=== PATIENT | male | born 1935 | race Caucasian/White ===

== ENCOUNTER 2018-05-30 18:48 | Inpatient (IN) | payer MEDICARE ==
[2018-05-30 19:12] LABS: ABSOLUTE EOSINOPHILS # (AUTO) 0.2 10^3/uL (0.0-0.6); ABSOLUTE LYMPHOCYTES (AUTO) 0.9 10^3/uL (0.5-4.7); ABSOLUTE MONOCYTES (AUTO) 0.7 10^3/uL (0.1-1.4); ABSOLUTE NEUT (AUTO) 6.3 10^3/uL (1.7-8.2); BASOPHILS % (AUTO) 0.2 % (0-2); EOSINOPHILS % (AUTO) 2.3 % (0-6); HEMATOCRIT 47.8 % (37.9-51.0); HEMOGLOBIN 15.9 g/dL (13.5-17.0); LYMPHOCYTES % (AUTO) 11.7 % (13-45); MEAN CORPUSCULAR HEMOGLOBIN 31.6 pg (27.0-33.4); MEAN CORPUSCULAR HGB CONC 33.2 g/dL (32.0-36.0); MEAN CORPUSCULAR VOLUME 95 fl (80-97); MONOCYTES % (AUTO) 8.2 % (3-13); PLATELET COUNT 182 10^3/uL (150-450); RED BLOOD COUNT 5.02 10^6/uL (4.35-5.55); RED CELL DISTRIBUTION WIDTH 15.1 % (11.5-14.0); SEGMENTED NEUTROPHILS % (AUTO) 77.6 % (42-78); TOTAL CELLS COUNTED % (AUTO) 100 %; WHITE BLOOD COUNT 8.1 10^3/uL (4.0-10.5)
--- NOTE | 2018-05-30 19:31 | RADIOLOGY REPORT (SQ) ---
EXAM DESCRIPTION: CHEST SINGLE VIEW COMPLETED DATE/TIME: 05/30/2018 7:14 pm REASON FOR STUDY: bed 6 db COMPARISON: None. EXAM PARAMETERS: NUMBER OF VIEWS: One view. TECHNIQUE: Single frontal radiographic view of the chest acquired. RADIATION DOSE: NA LIMITATIONS: None. FINDINGS: LUNGS AND PLEURA: Chronic interstitial changes. Cannot exclude mild pulmonary edema. The re is ill-defined opacification in the left base. MEDIASTINUM AND HILAR STRUCTURES: No masses. Contour normal. HEART AND VASCULAR STRUCTURES: Heart normal in size. Normal vasculature. BONES: No acute findings. HARDWARE: None in the chest. OTHER: No other significant finding. IMPRESSION: Cannot exclude limited left lower lobe pneumonia. Cannot exclude mild pulmonary edema s uperimposed upon chronic interstitial changes. TECHNICAL DOCUMENTATION: JOB ID: [id number] [employer]- All Rights Reserved Reading location - IP/workstation name: [email or web address]
[2018-05-30 19:33] LABS: ALANINE AMINOTRANSFERASE 20 U/L (21-72); ALBUMIN 3.9 g/dL (3.5-5.0); ALKALINE PHOSPHATASE 88 U/L (38-126); ANION GAP 16 (5-19); ASPARTATE AMINO TRANSFERASE 29 U/L (17-59); BILIRUBIN,DIRECT 0.4 mg/dL (0.0-0.4); BILIRUBIN,TOTAL 0.6 mg/dL (0.2-1.3); BLOOD UREA NITROGEN 39 mg/dL (7-20); CALCIUM 9.1 mg/dL (8.4-10.2); CARBON DIOXIDE 32 mmol/L (22-30); CHLORIDE 98 mmol/L (98-107); CREATINE KINASE 26 U/L (55-170); GLUCOSE 102 mg/dL (75-110); POTASSIUM 3.9 mmol/L (3.6-5.0); SODIUM 145.6 mmol/L (137-145); TOTAL PROTEIN 7.8 g/dL (6.3-8.2)
[2018-05-30] MEDS ORDERED: NORMAL SALINE 250 ML IV ONE (19:38)
--- NOTE | 2018-05-30 19:39 | EKG REPORT ---
SEVERITY:- ABNORMAL ECG - ATRIAL FLUTTER RIGHT AXIS DEVIATION BORDERLINE INFERIOR Q WAVES : Confirmed by: Benjamin Montano MD 30-May-2018 19:38:30
[2018-05-30] MEDS ORDERED: NICOTINE 14 MG/24 HR PATCH.TD24 TD ONE (19:43)
--- NOTE | 2018-05-30 19:45 | ER Document Report ---
ED General - General Chief Complaint: Arrhythmia Stated Complaint: POSSIBLE HEARTRATE ISSUE Time Seen by Provider: 05/30/18 19:17 Mode of Arrival: Ambulatory Information source: Patient Notes: This is an 82-year-old man with a history of hypertension, COPD, anxiety who presents to the emergency room with several days worth of shortness of breath and dyspnea on exertion. Patient denies chest pain. Patient's symptoms have progressed over the last 2 weeks and he came in tonight at the insistence of his family. His oxygen saturation on room air was in the 80s in triage. On oxygen (2 L nasal cannula) his oxygen saturation goes up to 94%. He denies chest pain at this time. - HPI Onset: Last week Onset/Duration: Gradual Quality of pain: No pain Associated symptoms: Chills, Nonproductive cough, Shortness of breath. denies: Fever Exacerbated by: Denies Relieved by: Denies Similar symptoms previously: Yes Recently seen / treated by doctor: No - Related Data Allergies/Adverse Reactions: No Known Allergies Allergy (Unverified 01/03/13 10:33) Past Medical History - General Information source: Patient - Social History Smoking Status: Current Every Day Smoker Cigarette use (# per day): Yes - Pack a day Chew tobacco use (# tins/day): No Frequency of alcohol use: None Drug Abuse: None Lives with: Family Family History: None Patient has suicidal ideation: No Patient has homicidal ideation: No - Past Medical History Cardiac Medical History: Reports: Hx Hypertension - MEDICATED Denies: Hx Heart Attack Pulmonary Medical History: Denies: Hx Asthma Neurological Medical History: Denies: Hx Cerebrovascular Accident, Hx Seizures Renal/ Medical History: Denies: Hx Peritoneal Dialysis GI Medical History: Denies: Hx Hepatitis, Hx Hiatal Hernia, Hx Ulcer Infectious Medical History: Denies: Hx Hepatitis Surgical Hx: Negative Past Surgical History: Denies: Hx Open Heart Surgery, Hx Pacemaker Review of Systems - Review of Systems Constitutional: denies: Chills, Fever EENT: No symptoms reported Cardiovascular: No symptoms reported Respiratory: No symptoms reported Gastrointestinal: See HPI Genitourinary: No symptoms reported Male Genitourinary: No symptoms reported Musculoskeletal: No symptoms reported Skin: No symptoms reported Hematologic/Lymphatic: No symptoms reported Neurological/Psychological: No symptoms reported Physical Exam - Vital signs Vitals: Resp 21 H 05/30/18 18:58 Notes: Physical exam: GENERAL: She is alert and oriented x3, no acute distress lying in the stretcher. His oxygen saturation is 94% on 2 L nasal cannula. HEAD: Atraumatic, normocephalic. EYES: Pupils equal round and reactive to light, extraocular movements intact, sclera anicteric, conjunctiva are normal. ENT: TMs normal, nares patent, oropharynx clear without exudates. Moist mucous membranes. NECK: Normal range of motion, supple without obvious mass or JVD. LUNGS: Diffuse rhonchi bilaterally without karlene wheezing. HEART: Regular rate and rhythm without murmurs, rubs or gallops. ABDOMEN: Soft, normoactive bowel sounds. No tenderness to palpation. No guarding, no rebound. No masses appreciated. EXTREMITIES: Normal range of motion, no pitting or edema. No clubbing or cyanosis. NEUROLOGICAL: Cranial nerves II through XII grossly intact. Normal speech, moving all extremities. PSYCH: Normal mood, normal affect. SKIN: Warm, Dry, normal turgor, no rashes or lesions noted. Course - Re-evaluation Re-evalutation: 05/30/18 22:20 Note: Patient has new onset A. fib/flutter. His ventricular rate is controlled at this time. He was initiated with Lovenox. CTA shows no pulmonary emboli. He is having desaturations into the 85% range on room air. His oxygen saturation on room air is 93%. I do think he has an acute COPD exacerbation and we are giving Xopenex as well as Solu-Medrol and ceftriaxone. - Vital Signs Vital signs: Temp Pulse Resp BP Pulse Ox 98 19 107/54 L 93 05/31/18 02:00 05/31/18 00:31 05/31/18 00:31 05/31/18 00:31 - Laboratory Result Diagrams: 05/30/18 18:18 05/30/18 18:18 Laboratory results interpreted by me: 05/30/18 05/30/18 05/30/18 18:18 18:18 18:18 RDW 15.1 H Lymphocytes % 11.7 L Sodium 145.6 H Carbon Dioxide 32 H BUN 39 H Creatinine 1.86 H Est GFR ( Amer) 42 L Est GFR (Non-Af Amer) 35 L Magnesium 1.5 L ALT 20 L Creatine Kinase 26 L - Diagnostic Test Radiology reviewed: Image reviewed, Reports reviewed - Chest x-ray suggested possibility of pneumonia. CT shows severe emphysematous changes with a 7.2 mm lung nodule which is spiculated. No obvious pneumonia. No evidence of pulmonary emboli. - EKG Interpretation by Co Rhythm: A.Flutter - EKG shows atrial fibrillation/atrial flutter with a ventricular rate of 97, nonspecific ST changes. Critical Care Note - Critical Care Note Total time excluding time spent on procedures (mins): 60 Discharge - Discharge Clinical Impression: Acute COPD exacerbation, New onset A. fib/flutter, Lung nodule Condition: Stable Disposition: ADMITTED INPATIENT Admitting Provider: Hospitalist - dr magdaleno Unit Admitted: [facility]
[2018-05-30 19:48] LABS: CREATINE KINASE MB 1.4 ng/mL (<4.55)
[2018-05-30 19:56] LABS: TROPONIN I 0.086 ng/mL
[2018-05-30 20:56] LABS: FREE T3 3.49 pg/mL (2.77-5.27); FREE T4 (FREE THYROXINE) 1.47 ng/dL (0.78-2.19)
[2018-05-30 21:09] LABS: THYROID STIMULATING HORMONE 0.87 uIU/mL (0.47-4.68)
[2018-05-30] MEDS ORDERED: CEFTRIAXONE 1 GM/D5W RTU 1 GM/50 ML RTUPB IV ONE ×2 (21:09→22:00)
[2018-05-30] MEDS ORDERED: LEVALBUTEROL HCL NEB 1.25 MG/3 ML AMPUL NEB ONE (21:49)
[2018-05-30] MEDS ORDERED: ENOXAPARIN SODIUM INJ 100 MG/1 ML DISP.SYRIN SUBCUT ONE (22:02)
--- NOTE | 2018-05-30 22:10 | RADIOLOGY REPORT (SQ) ---
EXAM DESCRIPTION: CT CHEST ANGIOGRAPHY WITHOUT THEN WITH IV CONTRAST COMPLETED DATE/TME: 05/30/2018 19:41 CLINICAL HISTORY: 82 years, Male, sob COMPARISON: None. TECHNIQUE: 678 Images stored on PACS. All CT scanners at this facility use dose modulation, iterative reconstruction, and/or weight based dosing when appropriate to reduce radiation dose to as low as reasonably achievable (ALARA). [facility]: Dose Right [facility]: CareDose [facility]: Dose Right [facility]: Teradose 4D [facility]: [email or web address] LIMITATIONS: None. FINDINGS: Nodularity to the thyroid gland. Correlate with thyroid function. The pulmonary vasculature enhances normally. There is no intraluminal filling defect to suggest pulmonary embolus. There is little to no contrast within the thoracic aorta however no convincing evidence for thoracic aortic aneurysm or dissection. Moderate atheromatous changes are present. Nonspecific nonenlarged mediastinal and hilar lymph nodes. Coronary artery calcification. Heart size at the upper limits of normal. Limited evaluation of the upper abdomen shows cholelithiasis. Small hiatal hernia. Small left pleural effusion. Osseous structures are grossly intact. No pneumothorax. Severe emphysematous changes are present. Areas of nodular/reticulonodular change in the upper lobes bilaterally suggesting pneumonitis. A more discrete nodule in the lateral left lung base measures 7.2 mm. There is also an area of slightly nodular pleural thickening in the anterior left upper lobe as well as within the lung apices bilaterally. An area of nodular pleural thickening is also present in the posterior right upper lobe measuring 1.3 cm. Minor bibasilar bronchiectasis and bronchial wall thickening is noted.. IMPRESSION: Negative for pulmonary embolus. Severe emphysematous changes. Nodular/reticulonodular changes bilaterally which could in part relate to small airway inflammation/infection. However, more distinct nodules are also present including a 7.2 mm spiculated nodule in the lateral left lung base. Areas of nodular pleural thickening are also present. See below for recommended nodule or follow-up. Small left pleural effusion. Small hiatal hernia. Cholelithiasis. 2017 Fleischner Society Recommendations for Multiple Solid Lung Nodules Follow-Up base on size (average of long- and short-axis diameters). Use most suspicious nodule for followup. Nodule Size <6 mm Low-Risk Patient: No routine follow-up Nodule Size <6 mm High-Risk Patient: Optional CT at 12 months Nodule Size 6-8 mm Low-Risk Patient: CT at 3-[address] at 18-24 months Nodule Size 6-8 mm High-Risk Patient: CT at 3-6 months then at 18-24 months Nodule Size (mm) >8 Low-Risk Patient: CT at 3-6 months, then consider CT at 18-24 months Nodule Size (mm) >8 High-Risk Patient: CT at 3-6 months, then at 18-24 months . TECHNICAL DOCUMENTATION: Quality ID # 436: Final reports with documentation of one or more dose reduction techniques (e.g., Automated exposure control, adjustment of the mA and/or kV according to patient size, use of iterative reconstruction technique) 2010 [employer]- All Rights Reserved
[2018-05-30] MEDS ORDERED: METHYLPREDNISOLONE INJ 125 MG/2 ML SDV IV ONE (22:20)
[2018-05-30] MEDS ORDERED: ALPRAZOLAM 0.5 MG TABLET PO ONE (22:21)
[2018-05-30] MEDS ORDERED: DIGOXIN 0.25 MG TABLET PO ONE (22:38)
[2018-05-30] MEDS ORDERED: DILTIAZEM HCL 60 MG TABLET PO ONE (22:38)
[2018-05-30] MEDS ORDERED: MAG HYDROX/AL HYDROX/SIMETH SUSP 30 ML UDCUP PO PRN (22:39)
[2018-05-30] MEDS ORDERED: CHLORPHENIRAMINE MALEATE 4 MG TABLET PO ONE (22:43)
[2018-05-30] MEDS ORDERED: FLUTICASONE NASAL SPRAY 50 MCG/SPRY 120 SPRAY/16 GM NASL ONE (23:00)
[2018-05-30] MEDS ORDERED: FAMOTIDINE 20 MG TABLET PO ONE (23:00)
[2018-05-31] MEDS ORDERED: CHLORPHENIRAMINE MALEATE 4 MG TABLET ONE (01:12)
[2018-05-31] MEDS ORDERED: FLUTICASONE NASAL SPRAY 50 MCG/SPRY 120 SPRAY/16 GM ONE (01:12)
[2018-05-31 01:55] LABS: CREATINE KINASE MB 0.95 ng/mL (<4.55)
[2018-05-31] MEDS ORDERED: MAGNESIUM SULFATE/D5W 1 GM/100 ML RTUPB IV ONE (02:00)
[2018-05-31 02:28] LABS: TROPONIN I 0.083 ng/mL
[2018-05-31] MEDS: LEVALBUTEROL HCL NEB 1.25 MG/3 ML AMPUL NEB SCH ×4 (02:58→20:45)
[2018-05-31] MEDS: DILTIAZEM HCL 60 MG TABLET PO SCH ×3 (05:38→21:21)
--- NOTE | 2018-05-31 05:53 | PDOC H&P ---
History of Present Illness Admission Date/PCP: 05/30/18 22:38 GILDARDO ALMANZAR Patient complains of: Shortness of breath History of Present Illness: CHEIKH GIFFORD is a 82 year old male with a past medical history of anxiety, COPD, chronic bronchitis and tobacco dependence. He presents with 4 days of shortness of breath and dyspnea on exertion, denying rhinorrhea, sore throat or acid reflux. He has been using Afrin in an attempt to relieve sinus congestion. in the emergency room he is found to have atrial flutter, oxygen saturations of 80%, CTA reveals no PE but profound emphysema and a spiculated lung nodule. He receives Xopenex and oxygen then referred to the hospitalist for admission. Denies chest pain, nausea vomiting or diaphoresis. Admits anxiety Past Medical History Cardiac Medical History: Reports: Hypertension - MEDICATED Denies: Myocardial Infarction Pulmonary Medical History: Denies: Asthma Neurological Medical History: Denies: Seizures GI Medical History: Denies: Hepatitis, Hiatal Hernia Psychiatric Medical History: Reports: Tobacco Dependency Denies: Depression Hematology: Denies: Anemia, Sickle Cell Disease Past Surgical History Past Surgical History: Denies: Pacemaker Social History Information Source: Patient Lives with: Family Smoking Status: Current Every Day Smoker Cigarettes Packs Per Day: 2 Frequency of Alcohol Use: None Hx Recreational Drug Use: No Hx Prescription Drug Abuse: No - Advance Directive Resuscitation Status: Full Code Family History Family History: Hypertension Parental Family History Reviewed: Yes Children Family History Reviewed: Yes Sibling(s) Family History Reviewed.: Yes Medication/Allergy Home Medications: Latanoprost [Xalatan 0.005% Oph Soln 2.5 Ml Bottle] 1 drop QHS 01/03/13 Losartan/Hydrochlorothiazide [Hyzaar 100-12.5 Tablet] 1 each PO 01/03/13 Simvastatin [Zocor 40 mg Tablet] 40 mg PO QHS 01/03/13 Allergies/Adverse Reactions: No Known Allergies Allergy (Unverified 01/03/13 10:33) Review of Systems Constitutional: PRESENT: as per HPI, fatigue, weakness, weight loss. ABSENT: fever(s) Eyes: ABSENT: visual disturbances Ears: ABSENT: hearing changes Cardiovascular: ABSENT: chest pain, dyspnea on exertion, edema, orthropnea, palpitations Respiratory: PRESENT: as per HPI, cough, dyspnea. ABSENT: sputum Gastrointestinal: ABSENT: abdominal pain, constipation, diarrhea, hematemesis, hematochezia, nausea, vomiting Genitourinary: ABSENT: dysuria, hematuria Musculoskeletal: ABSENT: joint swelling Integumentary: ABSENT: rash, wounds Neurological: ABSENT: abnormal gait, abnormal speech, confusion, dizziness, focal weakness, syncope Psychiatric: PRESENT: anxiety. ABSENT: depression, homidical ideation, suicidal ideation Endocrine: ABSENT: cold intolerance, heat intolerance, polydipsia, polyuria Hematologic/Lymphatic: ABSENT: easy bleeding, easy bruising Physical Exam Vital Signs: Temp Pulse Resp BP Pulse Ox 97.5 F 85 24 H 103/78 93 05/31/18 03:40 05/31/18 03:40 05/31/18 03:40 05/31/18 03:40 05/31/18 03:40 Intake & Output 05/29/18 05/30/18 05/31/18 11:59 11:59 11:59 Intake Total 100 Balance 100 Weight 69 kg General appearance: PRESENT: cooperative, severe distress, thin, other - Cachexia with temporal wasting Head exam: PRESENT: atraumatic, normocephalic Eye exam: PRESENT: conjunctiva pink, EOMI, PERRLA. ABSENT: scleral icterus Ear exam: PRESENT: normal external ear exam Mouth exam: PRESENT: moist, tongue midline Neck exam: ABSENT: carotid bruit, JVD, lymphadenopathy, thyromegaly Respiratory exam: PRESENT: accessory muscle use, prolonged expiratory phas, retraction, symmetrical, tachypnea. ABSENT: rhonchi, stridor Cardiovascular exam: PRESENT: RRR. ABSENT: diastolic murmur, rubs, systolic murmur Pulses: PRESENT: normal dorsalis pedis pul Vascular exam: PRESENT: normal capillary refill GI/Abdominal exam: PRESENT: normal bowel sounds, soft. ABSENT: distended, guarding, mass, organolmegaly, rebound, tenderness Rectal exam: PRESENT: deferred Extremities exam: PRESENT: full ROM. ABSENT: calf tenderness, clubbing, pedal edema Neurological exam: PRESENT: alert, awake, oriented to person, oriented to place , oriented to time, oriented to situation, CN II-XII grossly intact. ABSENT: motor sensory deficit Psychiatric exam: PRESENT: anxious. ABSENT: depressed, manic, normal mood Skin exam: PRESENT: dry, intact, warm. ABSENT: cyanosis, rash Results Laboratory Results: 05/31/18 05/31/18 00:17 00:17 Creatine Kinase < 20 L CK-MB (CK-2) 0.95 Troponin I 0.083 Impressions: Chest X-Ray 05/30/18 18:51 IMPRESSION: Cannot exclude limited left lower lobe pneumonia. Cannot exclude mild pulmonary edema superimposed upon chronic interstitial changes. Chest/Abdomen CTA 05/30/18 19:41 IMPRESSION: Negative for pulmonary embolus. Severe emphysematous changes. Nodular/reticulonodular changes bilaterally which could in part relate to small airway inflammation/infection. However, more distinct nodules are also present including a 7.2 mm spiculated nodule in the lateral left lung base. Areas of nodular pleural thickening are also present. See below for recommended nodule or follow-up. Small left pleural effusion. Small hiatal hernia. Cholelithiasis. 2017 Fleischner Society Recommendations for Multiple Solid Lung Nodules Follow-Up base on size (average of long- and short-axis diameters). Use most suspicious nodule for followup. Nodule Size <6 mm Low-Risk Patient: No routine follow-up Nodule Size <6 mm High-Risk Patient: Optional CT at 12 months Nodule Size 6-8 mm Low-Risk Patient: CT at 3-[address] at 18-24 months Nodule Size 6-8 mm High-Risk Patient: CT at 3-6 months then at 18-24 months Nodule Size (mm) >8 Low-Risk Patient: CT at 3-6 months, then consider CT at 18-24 months Nodule Size (mm) >8 High-Risk Patient: CT at 3-6 months, then at 18-24 months . TECHNICAL DOCUMENTATION: Quality ID # 436: Final reports with documentation of one or more dose reduction techniques (e.g., Automated exposure control, adjustment of the mA and/or kV according to patient size, use of iterative reconstruction technique) 2010 [employer]- All Rights Reserved Assessment & Plan - Diagnosis (1) COPD exacerbation Is this a current diagnosis for this admission?: Yes Plan: Complicated by profound emphysema, supplemental oxygen, flutter valve, steroids and empiric antibiotics (2) Atrial flutter Is this a current diagnosis for this admission?: Yes Plan: Most likely secondary to COPD exacerbation, trial of Cardizem and digoxin as needed, Lovenox initiated. Follow-up echocardiogram and cardiac enzymes (3) Lung nodule Is this a current diagnosis for this admission?: Yes Plan: Greater than [id number] history of smoking, and a spiculated lung nodule. Pulmonology consult - Time Time Spent: 50 to 70 Minutes - Inpatient Certification Medical Necessity: Need Close Monitoring Due to Risk of Patient Decompensation
[2018-05-31 06:35] LABS: ABSOLUTE EOSINOPHILS # (AUTO) 0.2 10^3/uL (0.0-0.6); ABSOLUTE LYMPHOCYTES (AUTO) 0.6 10^3/uL (0.5-4.7); ABSOLUTE MONOCYTES (AUTO) 0.6 10^3/uL (0.1-1.4); ABSOLUTE NEUT (AUTO) 5.9 10^3/uL (1.7-8.2); BASOPHILS % (AUTO) 0.6 % (0-2); EOSINOPHILS % (AUTO) 2.6 % (0-6); HEMATOCRIT 41.9 % (37.9-51.0); MEAN CORPUSCULAR HEMOGLOBIN 30.9 pg (27.0-33.4); MEAN CORPUSCULAR HGB CONC 32.6 g/dL (32.0-36.0); MEAN CORPUSCULAR VOLUME 95 fl (80-97); MONOCYTES % (AUTO) 8.8 % (3-13); PLATELET COUNT 151 10^3/uL (150-450); RED BLOOD COUNT 4.42 10^6/uL (4.35-5.55); RED CELL DISTRIBUTION WIDTH 15.4 % (11.5-14.0); TOTAL CELLS COUNTED % (AUTO) 100 %; WHITE BLOOD COUNT 7.4 10^3/uL (4.0-10.5)
[2018-05-31 06:37] LABS: HEMOGLOBIN 13.7 g/dL (13.5-17.0)
[2018-05-31 07:09] LABS: ANION GAP 10 (5-19); BLOOD UREA NITROGEN 34 mg/dL (7-20); CALCIUM 8.4 mg/dL (8.4-10.2); CARBON DIOXIDE 34 mmol/L (22-30); CHLORIDE 101 mmol/L (98-107); CREATINE KINASE 23 U/L (55-170); GLUCOSE 87 mg/dL (75-110); POTASSIUM 3.4 mmol/L (3.6-5.0); SODIUM 145.3 mmol/L (137-145)
[2018-05-31 07:16] LABS: CREATINE KINASE MB 1.04 ng/mL (<4.55); TROPONIN I 0.085 ng/mL
[2018-05-31] MEDS ORDERED: LEVALBUTEROL HCL NEB 0.63 MG/3 ML AMPUL NEB PRN (09:47)
[2018-05-31] MEDS: ENOXAPARIN SODIUM INJ 80 MG/0.8 ML DISP.SYRIN SUBCUT SCH ×2 (10:30→21:23)
[2018-05-31] MEDS: DOCUSATE SODIUM 100 MG CAPSULE PO SCH ×2 (10:30→17:30)
[2018-05-31] MEDS: FAMOTIDINE 20 MG TABLET PO SCH ×2 (10:30→21:22)
[2018-05-31] MEDS: FLUTICASONE NASAL SPRAY 50 MCG/SPRY 120 SPRAY/16 GM NASL SCH ×2 (10:30→21:21)
--- NOTE | 2018-05-31 12:28 | PDOC PROGRESS REPORT ---
Subjective Progress Note for:: 05/31/18 Subjective:: 05/31/20182814-49-sgup-old male with history of COPD, admitted for new onset atrial fibrillation. Patient is asymptomatic. Expressing desire to go home. Was seen by the assistant professor of physics. The assistant professor of physics Dr. Gaines is planning to start him on anticoagulation. He is also planning to make arrangements for the patient to's see the the specialist for ablation. Patient was also seen by the pulmonology because of abnormal CT showing speckled mass. Reason For Visit: AFLUTTER ARF COPD EXACERBATION C SPICULATED LUNG Physical Exam Vital Signs: Temp Pulse Resp BP Pulse Ox 97.7 F 86 18 113/59 L 92 05/31/18 07:44 05/31/18 08:31 05/31/18 08:31 05/31/18 07:44 05/31/18 08:31 Intake & Output 05/30/18 05/31/18 06/01/18 06:59 06:59 06:59 Intake Total 100 Output Total 175 Balance -75 Weight 70.4 kg General appearance: PRESENT: no acute distress Head exam: PRESENT: atraumatic Eye exam: PRESENT: PERRLA Neck exam: ABSENT: carotid bruit, JVD, lymphadenopathy, thyromegaly Respiratory exam: PRESENT: clear to auscultation thais. ABSENT: rales, rhonchi, wheezes Cardiovascular exam: PRESENT: RRR. ABSENT: diastolic murmur, rubs, systolic murmur GI/Abdominal exam: PRESENT: normal bowel sounds, soft. ABSENT: distended, guarding, mass, organolmegaly, rebound, tenderness Neurological exam: PRESENT: alert, awake, oriented to person, oriented to place , oriented to time, oriented to situation, CN II-XII grossly intact. ABSENT: motor sensory deficit Psychiatric exam: PRESENT: appropriate affect, normal mood. ABSENT: homicidal ideation, suicidal ideation Results Laboratory Results: 05/31/18 06:09 05/31/18 06:09 05/31/18 05/31/18 05/31/18 06:09 06:09 06:09 WBC 7.4 RBC 4.42 Hgb 13.7 D Hct 41.9 MCV 95 MCH 30.9 MCHC 32.6 RDW 15.4 H Plt Count 151 Seg Neutrophils % 80.0 H Lymphocytes % 8.0 L Monocytes % 8.8 Eosinophils % 2.6 Basophils % 0.6 Absolute Neutrophils 5.9 Absolute Lymphocytes 0.6 Absolute Monocytes 0.6 Absolute Eosinophils 0.2 Absolute Basophils 0.0 Sodium 145.3 H Potassium 3.4 L Chloride 101 Carbon Dioxide 34 H Anion Gap 10 BUN 34 H Creatinine 1.63 H Est GFR ( Amer) 49 L Est GFR (Non-Af Amer) 41 L Glucose 87 Calcium 8.4 Magnesium 1.8 05/31/18 05/31/18 05/31/18 00:17 00:17 06:09 Creatine Kinase < 20 L 23 L CK-MB (CK-2) 0.95 Troponin I 0.083 05/31/18 06:09 Creatine Kinase CK-MB (CK-2) 1.04 Troponin I 0.085 Impressions: Chest X-Ray 05/30/18 18:51 IMPRESSION: Cannot exclude limited left lower lobe pneumonia. Cannot exclude mild pulmonary edema superimposed upon chronic interstitial changes. Chest/Abdomen CTA 05/30/18 19:41 IMPRESSION: Negative for pulmonary embolus. Severe emphysematous changes. Nodular/reticulonodular changes bilaterally which could in part relate to small airway inflammation/infection. However, more distinct nodules are also present including a 7.2 mm spiculated nodule in the lateral left lung base. Areas of nodular pleural thickening are also present. See below for recommended nodule or follow-up. Small left pleural effusion. Small hiatal hernia. Cholelithiasis. 2017 Fleischner Society Recommendations for Multiple Solid Lung Nodules Follow-Up base on size (average of long- and short-axis diameters). Use most suspicious nodule for followup. Nodule Size <6 mm Low-Risk Patient: No routine follow-up Nodule Size <6 mm High-Risk Patient: Optional CT at 12 months Nodule Size 6-8 mm Low-Risk Patient: CT at 3-[address] at 18-24 months Nodule Size 6-8 mm High-Risk Patient: CT at 3-6 months then at 18-24 months Nodule Size (mm) >8 Low-Risk Patient: CT at 3-6 months, then consider CT at 18-24 months Nodule Size (mm) >8 High-Risk Patient: CT at 3-6 months, then at 18-24 months . TECHNICAL DOCUMENTATION: Quality ID # 436: Final reports with documentation of one or more dose reduction techniques (e.g., Automated exposure control, adjustment of the mA and/or kV according to patient size, use of iterative reconstruction technique) 2010 [employer]- All Rights Reserved Assessment & Plan - Diagnosis (1) Atrial flutter Qualifiers: Atrial flutter type: unspecified Qualified Code(s): I48.92 - Unspecified atrial flutter Is this a current diagnosis for this admission?: Yes Plan: 07/31/2017 patient heart rate is controlled and irregular. Seen by the assistant professor of physics. He is going to start him on anticoagulation. Start for echocardiogram. He is asymptomatic. Right now is on Lovenox. (2) COPD exacerbation Is this a current diagnosis for this admission?: Yes Plan: 05/31/2018. Patient is asymptomatic. Denies any shortness of breath. Patient is breathing comfortably on room air . And received a dose of ceftriaxone. Is not on IV steroids. His pulse ox is 92% . (3) Acute renal failure Is this a current diagnosis for this admission?: Yes Plan: 05/31/2018-since creatinine is 1.86 yesterday. The creatinine is improved to 1.63 today. We will continue the present management. (4) Lung nodule Is this a current diagnosis for this admission?: Yes Plan: 07/31/2017. His scan of the chest was done with and without contrast shows speckled mass. Patient was seen by the pipe cleaning machine operator. - Time Time Spent with patient: 15-24 minutes Medications reviewed and adjusted accordingly: Yes
[2018-05-31] MEDS: ALPRAZOLAM 0.5 MG TABLET PO PRN ×2 (12:29→21:22)
[2018-05-31 13:44] LABS: CREATINE KINASE MB 1.04 ng/mL (<4.55); TROPONIN I 0.069 ng/mL
[2018-05-31] MEDS ORDERED: NALOXONE HCL INJ/PF 0.4 MG/1 ML SDV ONE (17:14)
--- NOTE | 2018-05-31 19:39 | RADIOLOGY REPORT (SQ) ---
EXAM DESCRIPTION: CT HEAD WITHOUT COMPLETED DATE/TIME: 05/31/2018 6:15 pm REASON FOR STUDY: AMS COMPARISON: None. TECHNIQUE: Axial images acquired through the brain without intravenous contrast. Images reviewed wi th bone, brain and subdural windows. Images stored on PACS. All CT scanners at this facility use dose modulation, iterative reconstruction, and/or weight based d osing when appropriate to reduce radiation dose to as low as reasonably achievable (ALARA). [facility]: Dose Right [facility]: CareDose [facility]: Dose Right [facility]: Teradose 4D [facility]: Smart Mass M[employer] RADIATION DOSE: CT Rad equipment meets quality standard of care and radiation dose reduction techniq ues were employed. CTDIvol: 53.2 mGy. DLP: 1044 mGy-cm. mGy. LIMITATIONS: None. FINDINGS: VENTRICLES: Prominent. CEREBRUM: Mild cortical atrophy. No masses. No hemorrhage. No midline shift. No evidence for acut e infarction. Few scattered areas of low density in the white matter most likely chronic small vessel ischemic changes. CEREBELLUM: No masses. No hemorrhage. No alteration of density. No evidence for acute infarction. EXTRAAXIAL SPACES: No fluid collections. No masses. ORBITS AND GLOBE: No intra- or extraconal masses. Normal contour of globe without masses. CALVARIUM: No fracture. PARANASAL SINUSES: No fluid or mucosal thickening. SOFT TISSUES: No mass or hematoma. OTHER: No other significant finding. IMPRESSION: MILD CHRONIC MICROVASCULAR ISCHEMIA. NO ACUTE IMAGING FINDINGS IN THE BRAIN. EVIDENCE OF ACUTE STROKE: NO. COMMENT: Quality ID # 436: Final reports with documentation of one or more dose reduction techniques (e.g., Automated exposure control, adjustment of the mA and/or kV according to patient size, use of iterative reconstruction technique) TECHNICAL DOCUMENTATION: JOB ID: [id number] [employer]- All Rights Reserved Reading location - IP/workstation name: [email or web address]
--- NOTE | 2018-05-31 20:39 | PDOC CONSULTATION ---
Consultation-Blank Consultation: CARDIOLOGY CONSULTATION BY DR AVELINA MITCHELL ON 05/31/18.
[2018-05-31] MEDS: ACETAMINOPHEN 325 MG TABLET PO PRN (21:22)
[2018-05-31] MEDS ORDERED: NICOTINE 14 MG/24 HR PATCH.TD24 TD ONE (22:45)
[2018-06-01] MEDS ORDERED: LEVALBUTEROL HCL NEB 1.25 MG/3 ML AMPUL NEB PRN (04:00)
[2018-06-01] MEDS: ACETAMINOPHEN 325 MG TABLET PO PRN (04:02)
[2018-06-01 05:51] LABS: HEMOGLOBIN 13.2 g/dL (13.5-17.0); MEAN CORPUSCULAR HEMOGLOBIN 31.6 pg (27.0-33.4); MEAN CORPUSCULAR VOLUME 96 fl (80-97); PLATELET COUNT 131 10^3/uL (150-450); RED BLOOD COUNT 4.18 10^6/uL (4.35-5.55); RED CELL DISTRIBUTION WIDTH 15.3 % (11.5-14.0); WHITE BLOOD COUNT 6.6 10^3/uL (4.0-10.5)
[2018-06-01] MEDS: DILTIAZEM HCL 60 MG TABLET PO SCH ×3 (06:52→21:20)
[2018-06-01] MEDS: LEVALBUTEROL HCL NEB 1.25 MG/3 ML AMPUL NEB SCH ×3 (08:16→20:40)
[2018-06-01] MEDS: FAMOTIDINE 20 MG TABLET PO SCH ×2 (09:53→21:20)
[2018-06-01] MEDS: NICOTINE 14 MG/24 HR PATCH.TD24 TD SCH (09:53)
[2018-06-01] MEDS: DOCUSATE SODIUM 100 MG CAPSULE PO SCH ×2 (09:53→17:03)
[2018-06-01] MEDS: ALPRAZOLAM 0.5 MG TABLET PO PRN (09:53)
[2018-06-01] MEDS: ENOXAPARIN SODIUM INJ 80 MG/0.8 ML DISP.SYRIN SUBCUT SCH ×2 (09:54→21:20)
[2018-06-01] MEDS: FLUTICASONE NASAL SPRAY 50 MCG/SPRY 120 SPRAY/16 GM NASL SCH ×2 (09:56→21:18)
[2018-06-01] MEDS ORDERED: ALPRAZOLAM 0.5 MG TABLET PO PRN (11:50)
--- NOTE | 2018-06-01 11:56 | PDOC PROGRESS REPORT ---
Subjective Progress Note for:: 06/01/18 Subjective:: [birth year][id number]-szvt-old male with history of COPD, admitted for new onset atrial fibrillation. Patient is asymptomatic. Expressing desire to go home. Was seen by the pull out operator. The pull out operator Dr. Gaines is planning to start him on anticoagulation. He is also planning to make arrangements for the patient to's see the the specialist for ablation. Patient was also seen by the pulmonology because of abnormal CT showing speckled mass. 06/01/2018 yesterday afternoon after taking Xanax 1 mg p.o. patient has change in mental status, we did a CT head which was negative prior to that Narcan was given. After giving the Narcan he woke up but still not coherent and communication. Today still looks weak and not back to baseline patient is expressing his to go home but I explained to him in detail that he is weak and is not back to baseline we will recommend PT consult he agreed with it and probably will make arrangements for him to go home tomorrow. Reason For Visit: AFLUTTER ARF COPD EXACERBATION C SPICULATED LUNG Physical Exam Vital Signs: Temp Pulse Resp BP Pulse Ox 98.2 F 83 16 90/42 L 99 06/01/18 07:40 06/01/18 08:16 06/01/18 08:16 06/01/18 07:40 06/01/18 08:16 Intake & Output 05/31/18 06/01/18 06/02/18 06:59 06:59 06:59 Intake Total 100 987 Output Total 175 647 Balance -75 340 Weight 70.4 kg General appearance: PRESENT: no acute distress Head exam: PRESENT: atraumatic Neck exam: ABSENT: carotid bruit, JVD, lymphadenopathy, thyromegaly Respiratory exam: PRESENT: clear to auscultation thais. ABSENT: rales, rhonchi, wheezes Cardiovascular exam: PRESENT: RRR. ABSENT: diastolic murmur, rubs, systolic murmur GI/Abdominal exam: PRESENT: normal bowel sounds, soft. ABSENT: distended, guarding, mass, organolmegaly, rebound, tenderness Neurological exam: PRESENT: alert, awake, other - Patient mental status is not back to baseline as per the family. Psychiatric exam: PRESENT: appropriate affect, normal mood. ABSENT: homicidal ideation, suicidal ideation Results Laboratory Results: 06/01/18 05:07 05/31/18 06:09 06/01/18 06/01/18 05:07 05:07 WBC 6.6 RBC 4.18 L Hgb 13.2 L Hct 40.0 MCV 96 MCH 31.6 MCHC 33.0 RDW 15.3 H Plt Count 131 L TSH 0.74 05/31/18 05/31/18 05/31/18 00:17 00:17 06:09 Creatine Kinase < 20 L 23 L CK-MB (CK-2) 0.95 Troponin I 0.083 05/31/18 05/31/18 05/31/18 06:09 12:33 12:33 Creatine Kinase 25 L CK-MB (CK-2) 1.04 1.04 Troponin I 0.085 0.069 Impressions: Chest X-Ray 05/30/18 18:51 IMPRESSION: Cannot exclude limited left lower lobe pneumonia. Cannot exclude mild pulmonary edema superimposed upon chronic interstitial changes. Chest/Abdomen CTA 05/30/18 19:41 IMPRESSION: Negative for pulmonary embolus. Severe emphysematous changes. Nodular/reticulonodular changes bilaterally which could in part relate to small airway inflammation/infection. However, more distinct nodules are also present including a 7.2 mm spiculated nodule in the lateral left lung base. Areas of nodular pleural thickening are also present. See below for recommended nodule or follow-up. Small left pleural effusion. Small hiatal hernia. Cholelithiasis. 2017 Fleischner Society Recommendations for Multiple Solid Lung Nodules Follow-Up base on size (average of long- and short-axis diameters). Use most suspicious nodule for followup. Nodule Size <6 mm Low-Risk Patient: No routine follow-up Nodule Size <6 mm High-Risk Patient: Optional CT at 12 months Nodule Size 6-8 mm Low-Risk Patient: CT at 3-[address] at 18-24 months Nodule Size 6-8 mm High-Risk Patient: CT at 3-6 months then at 18-24 months Nodule Size (mm) >8 Low-Risk Patient: CT at 3-6 months, then consider CT at 18-24 months Nodule Size (mm) >8 High-Risk Patient: CT at 3-6 months, then at 18-24 months . TECHNICAL DOCUMENTATION: Quality ID # 436: Final reports with documentation of one or more dose reduction techniques (e.g., Automated exposure control, adjustment of the mA and/or kV according to patient size, use of iterative reconstruction technique) 2010 [employer]- All Rights Reserved Head CT 05/31/18 00:00 IMPRESSION: MILD CHRONIC MICROVASCULAR ISCHEMIA. NO ACUTE IMAGING FINDINGS IN THE BRAIN. EVIDENCE OF ACUTE STROKE: NO. Assessment & Plan - Diagnosis (1) Atrial flutter Qualifiers: Atrial flutter type: unspecified Qualified Code(s): I48.92 - Unspecified atrial flutter Is this a current diagnosis for this admission?: Yes Plan: 05/31/2018 patient heart rate is controlled and irregular. Seen by the pull out operator. He is going to start him on anticoagulation. Start for echocardiogram. He is asymptomatic. Right now is on Lovenox. 06/01/2018-rate is in sinus rhythm heart rate is around 83. Javed by Dr. Gaines. He is on Lovenox subcu for DVT prophylaxis. Echocardiogram report is pending. No episodes of A. fib in the last 24 hours. She may have to go to ablation therapy a few weeks down the line. (2) COPD exacerbation Is this a current diagnosis for this admission?: Yes Plan: 05/31/2018. Patient is asymptomatic. Denies any shortness of breath. Patient is breathing comfortably on room air . And received a dose of ceftriaxone. Is not on IV steroids. His pulse ox is 92% . 06/01/2018-patient is asymptomatic his pulse ox is 97% on room air. Not on any IV steroids or empiric antibiotics. (3) Acute renal failure Is this a current diagnosis for this admission?: Yes Plan: 05/31/2018-since creatinine is 1.86 yesterday. The creatinine is improved to 1.63 today. We will continue the present management. 06/01/2018 patient's renal insufficiency improving I am going to repeat the chemistry tomorrow. (4) Lung nodule Is this a current diagnosis for this admission?: Yes Plan: 05/31/2018. His scan of the chest was done with and without contrast shows speckled mass. Patient was seen by the production intern. 06/01/2018 has a long history of smoking. seen By the production intern. He just shows speckled mass. His family is advised to follow-up with production intern as an outpatient. - Time Time Spent with patient: 15-24 minutes Medications reviewed and adjusted accordingly: Yes
[2018-06-01 14:55] LABS: ALANINE AMINOTRANSFERASE 21 U/L (21-72); ALBUMIN 2.8 g/dL (3.5-5.0); ALKALINE PHOSPHATASE 62 U/L (38-126); ANION GAP 10 (5-19); ASPARTATE AMINO TRANSFERASE 18 U/L (17-59); BILIRUBIN,DIRECT 0.4 mg/dL (0.0-0.4); BILIRUBIN,TOTAL 0.5 mg/dL (0.2-1.3); BLOOD UREA NITROGEN 28 mg/dL (7-20); CALCIUM 8.2 mg/dL (8.4-10.2); CARBON DIOXIDE 32 mmol/L (22-30); CHLORIDE 103 mmol/L (98-107); GLUCOSE 116 mg/dL (75-110); POTASSIUM 3.6 mmol/L (3.6-5.0); SODIUM 144.6 mmol/L (137-145); TOTAL PROTEIN 6.2 g/dL (6.3-8.2)
[2018-06-01 18:13] LABS: APPEARANCE,URINE SLIGHTLY-CLOUDY; BILIRUBIN,URINE NEGATIVE (NEGATIVE); COLOR,URINE YELLOW; GLUCOSE, URINE NEGATIVE (NEGATIVE); KETONES,URINE NEGATIVE (NEGATIVE); LEUKOCYTE ESTERASE,URINE NEGATIVE (NEGATIVE); NITRITE,URINE NEGATIVE (NEGATIVE); PROTEIN,URINE NEGATIVE (NEGATIVE); URINE SPECIFIC GRAVITY 1.024
--- NOTE | 2018-06-01 23:19 | Progress Note ---
Provider Note Provider Note: CARDIOLOGY PROGRESS NOTES by Dr. Kamilla Gaines on 06/01/2018.
[2018-06-02] MEDS: DILTIAZEM HCL 60 MG TABLET PO SCH (05:23)
[2018-06-02] MEDS: LEVALBUTEROL HCL NEB 1.25 MG/3 ML AMPUL NEB SCH ×2 (08:28→14:28)
[2018-06-02] MEDS: NICOTINE 14 MG/24 HR PATCH.TD24 TD SCH (09:17)
[2018-06-02] MEDS: DOCUSATE SODIUM 100 MG CAPSULE PO SCH (09:17)
[2018-06-02] MEDS: FLUTICASONE NASAL SPRAY 50 MCG/SPRY 120 SPRAY/16 GM NASL SCH (09:17)
[2018-06-02] MEDS: FAMOTIDINE 20 MG TABLET PO SCH (09:17)
[2018-06-02] MEDS: ENOXAPARIN SODIUM INJ 80 MG/0.8 ML DISP.SYRIN SUBCUT SCH (09:17)
[2018-06-02 10:48] LABS: ABSOLUTE EOSINOPHILS # (AUTO) 0.1 10^3/uL (0.0-0.6); ABSOLUTE LYMPHOCYTES (AUTO) 0.4 10^3/uL (0.5-4.7); ABSOLUTE MONOCYTES (AUTO) 0.4 10^3/uL (0.1-1.4); ABSOLUTE NEUT (AUTO) 5.2 10^3/uL (1.7-8.2); BASOPHILS % (AUTO) 0.4 % (0-2); EOSINOPHILS % (AUTO) 1.3 % (0-6); HEMATOCRIT 43.9 % (37.9-51.0); HEMOGLOBIN 14.5 g/dL (13.5-17.0); LYMPHOCYTES % (AUTO) 6.6 % (13-45); MEAN CORPUSCULAR HEMOGLOBIN 31.6 pg (27.0-33.4); MEAN CORPUSCULAR HGB CONC 33.1 g/dL (32.0-36.0); MEAN CORPUSCULAR VOLUME 96 fl (80-97); MONOCYTES % (AUTO) 6.9 % (3-13); PLATELET COUNT 114 10^3/uL (150-450); SEGMENTED NEUTROPHILS % (AUTO) 84.8 % (42-78); TOTAL CELLS COUNTED % (AUTO) 100 %; WHITE BLOOD COUNT 6.1 10^3/uL (4.0-10.5)
[2018-06-02 11:14] LABS: ANION GAP 13 (5-19); BLOOD UREA NITROGEN 24 mg/dL (7-20); CALCIUM 8.9 mg/dL (8.4-10.2); CARBON DIOXIDE 31 mmol/L (22-30); CHLORIDE 100 mmol/L (98-107); GLUCOSE 136 mg/dL (75-110); POTASSIUM 3.9 mmol/L (3.6-5.0); SODIUM 144.4 mmol/L (137-145)
[2018-06-02] MEDS ORDERED: DILTIAZEM HCL 120 MG CAP.SR.24H PO SCH (13:00)
--- NOTE | 2018-06-02 15:32 | PDOC DISCHARGE SUMMARY ---
General - Admit/Disc Date/PCP Admission Date/Primary Care Provider: 05/30/18 22:38 ANIKA PERALTA MD Discharge Date: 06/02/18 - Discharge Diagnosis (1) Atrial flutter Is this a current diagnosis for this admission?: Yes Summary: 06/02/2018 patient was admitted with atrial fibrillation/flutter he is taking Afrin at home initially thought was it probably secondary to the medication. Allergy consult was done. Echocardiogram report is pending. I discussed the care with her Dr. Ramon today he recommended to discharge the patient on Cardizem 120 mg p.o. twice daily and also on Eliquis 5 mg p.o. nightly. And probably need EPS studies as an outpatient. It is not still atrial flutter with hert rate 80 this morning. He was advised to follow-up with Dr. Gaines as an outpatient for this problem. (2) COPD exacerbation Is this a current diagnosis for this admission?: Yes Summary: 06/02/2018 and has a chronic history of COPD exacerbation. She will deal with his pulse ox is 97% on room air. Not started on any IV steroids are empiric antibiotics. Chest x-ray was without infiltrates. Today patient's a pulse ox' s are low. Pulse ox is around 82% on room room air at rest. We are going to check the pulse ox while ambulating on room air and plan to place him on oxygen 2 L nasal cannula to see the improvement. cyber ops planner was requested to make arrangements for home oxygen with a portable device. (3) Acute renal failure Is this a current diagnosis for this admission?: Yes Summary: 06/02/2018 patient's admission creatinine was 1.86. Today's creatinine is 1.33. Significant improvement in GFR. His GFR is back to baseline. (4) Lung nodule Is this a current diagnosis for this admission?: Yes Summary: 06/02/2018 shows speckled mass. Pulmonology consult was done. Patient has a long history of smoking. No further recommendations were made by the restaurant attendant during this admission. Patient and family is requested felt to follow-up with restaurant attendant as an outpatient. - Additional Information Resuscitation Status: Full Code Prescriptions: Apixaban [Eliquis 5 mg Tablet] 5 mg PO BID 30 Days #30 tablet Diltiazem HCl [Cardizem Cd 120 mg Capsule] 120 mg PO Q12 30 Days #60 cap.sr.24h Home Medications: Alprazolam [Xanax] 0.5 mg PO QHS 05/31/18 Budesonide/Formoterol Fumarate [Symbicort HFA 160-4.5 mcg Inhaler 6 gm] 2 puff IH Q12 05/31/18 Doxylamine Succinate [Unisom] 25 mg PO HSP PRN 05/31/18 Latanoprost [Xalatan] 1 drop OU QHS 05/31/18 Losartan/Hydrochlorothiazide [Hyzaar 100-12.5 Tablet] 1 tab PO DAILY 05/31/18 Simvastatin [Zocor 40 mg Tablet] 40 mg PO DAILY 05/31/18 Vit C/Vit E/L[place]in/Min/[place]-3 [Ocuvite Softgel] 1 cap PO DAILY 05/31/18 Apixaban [Eliquis 5 mg Tablet] 5 mg PO BID 30 Days #30 tablet 06/02/18 Diltiazem HCl [Cardizem Cd 120 mg Capsule] 120 mg PO Q12 30 Days #60 cap.sr.24h 06/02/18 History of Present Illness History of Present Illness: CHEIKH GIFFORD is a 82 year old male with a past medical history of anxiety, COPD, chronic bronchitis and tobacco dependence. He presents with 4 days of shortness of breath and dyspnea on exertion, denying rhinorrhea, sore throat or acid reflux. He has been using Afrin in an attempt to relieve sinus congestion. in the emergency room he is found to have atrial flutter, oxygen saturations of 80%, CTA reveals no PE but profound emphysema and a spiculated lung nodule. He receives Xopenex and oxygen then referred to the hospitalist for admission. Denies chest pain, nausea vomiting or diaphoresis. Admits anxiety Physical Exam Vital Signs: Temp Pulse Resp BP Pulse Ox 97.7 F 81 20 128/54 H 90 L 06/02/18 11:36 06/02/18 14:28 06/02/18 14:28 06/02/18 11:36 06/02/18 14:28 Intake & Output 06/01/18 06/02/18 06/03/18 06:59 06:59 06:59 Intake Total 987 787 237 Output Total 647 400 100 Balance 340 387 137 Weight 70.2 kg General appearance: PRESENT: no acute distress Head exam: PRESENT: atraumatic Eye exam: PRESENT: PERRLA Neck exam: ABSENT: carotid bruit, JVD, lymphadenopathy, thyromegaly Respiratory exam: PRESENT: unlabored Cardiovascular exam: PRESENT: RRR. ABSENT: diastolic murmur, rubs, systolic murmur GI/Abdominal exam: PRESENT: normal bowel sounds, soft. ABSENT: distended, guarding, mass, organolmegaly, rebound, tenderness Neurological exam: PRESENT: alert, awake, oriented to person, oriented to place , oriented to time, oriented to situation, CN II-XII grossly intact. ABSENT: motor sensory deficit Results Laboratory Results: 06/02/18 10:19 06/02/18 10:19 06/01/18 06/02/18 06/02/18 17:14 10:19 10:19 WBC 6.1 RBC 4.60 Hgb 14.5 Hct 43.9 MCV 96 MCH 31.6 MCHC 33.1 RDW 15.0 H Plt Count 114 L Seg Neutrophils % 84.8 H Lymphocytes % 6.6 L Monocytes % 6.9 Eosinophils % 1.3 Basophils % 0.4 Absolute Neutrophils 5.2 Absolute Lymphocytes 0.4 L Absolute Monocytes 0.4 Absolute Eosinophils 0.1 Absolute Basophils 0.0 Sodium 144.4 Potassium 3.9 Chloride 100 Carbon Dioxide 31 H Anion Gap 13 BUN 24 H Creatinine 1.33 H Est GFR ( Amer) > 60 Est GFR (Non-Af Amer) 52 L Glucose 136 H Calcium 8.9 Magnesium 1.8 Urine Color YELLOW Urine Appearance SLIGHTLY-CLOUDY Urine pH 5.0 Ur Specific [place] 1.024 Urine Protein NEGATIVE Urine Glucose (UA) NEGATIVE Urine Ketones NEGATIVE Urine Blood NEGATIVE Urine Nitrite NEGATIVE Ur Leukocyte Esterase NEGATIVE Urine WBC (Auto) 2 Urine RBC (Auto) 0 05/31/18 05/31/18 05/31/18 00:17 00:17 06:09 Creatine Kinase < 20 L 23 L CK-MB (CK-2) 0.95 Troponin I 0.083 05/31/18 05/31/18 05/31/18 06:09 12:33 12:33 Creatine Kinase 25 L CK-MB (CK-2) 1.04 1.04 Troponin I 0.085 0.069 Impressions: Chest X-Ray 05/30/18 18:51 IMPRESSION: Cannot exclude limited left lower lobe pneumonia. Cannot exclude mild pulmonary edema superimposed upon chronic interstitial changes. Chest/Abdomen CTA 05/30/18 19:41 IMPRESSION: Negative for pulmonary embolus. Severe emphysematous changes. Nodular/reticulonodular changes bilaterally which could in part relate to small airway inflammation/infection. However, more distinct nodules are also present including a 7.2 mm spiculated nodule in the lateral left lung base. Areas of nodular pleural thickening are also present. See below for recommended nodule or follow-up. Small left pleural effusion. Small hiatal hernia. Cholelithiasis. 2017 Fleischner Society Recommendations for Multiple Solid Lung Nodules Follow-Up base on size (average of long- and short-axis diameters). Use most suspicious nodule for followup. Nodule Size <6 mm Low-Risk Patient: No routine follow-up Nodule Size <6 mm High-Risk Patient: Optional CT at 12 months Nodule Size 6-8 mm Low-Risk Patient: CT at 3-[address] at 18-24 months Nodule Size 6-8 mm High-Risk Patient: CT at 3-6 months then at 18-24 months Nodule Size (mm) >8 Low-Risk Patient: CT at 3-6 months, then consider CT at 18-24 months Nodule Size (mm) >8 High-Risk Patient: CT at 3-6 months, then at 18-24 months . TECHNICAL DOCUMENTATION: Quality ID # 436: Final reports with documentation of one or more dose reduction techniques (e.g., Automated exposure control, adjustment of the mA and/or kV according to patient size, use of iterative reconstruction technique) 2010 [employer]- All Rights Reserved Head CT 05/31/18 00:00 IMPRESSION: MILD CHRONIC MICROVASCULAR ISCHEMIA. NO ACUTE IMAGING FINDINGS IN THE BRAIN. EVIDENCE OF ACUTE STROKE: NO. Qualifiers - * PATIENT BEING DISCHARGED WITH ANY OF THE FOLLOWING DIAGNOSIS: No VTE patient discharged on overlapping Therapy?: Yes
[2018-06-02 15:42] VITALS: BP 139/61
[2018-06-02] MEDS ORDERED: DOXYLAMINE SUCCINATE 25 MG PO PRN (15:53)
[2018-06-02] MEDS ORDERED: APIXABAN 5 MG TABLET PO SCH (18:00)
--- NOTE | 2018-06-02 21:14 | Progress Note ---
Provider Note Provider Note: CARDIOLOGY PROGRESS NOTES by Dr. Kamilla Gaines on 06/02/2018. SUBJECTIVE: The patient denies chest pain or discomfort. There is no shortness of breath or wheezing. There is no PND or orthopnea. The patient does not seem to be confused. With me the patient is oriented x3. He states that he is not confused. He is just angry since his brought him into the hospital. There is no bleeding on Lovenox. There is no TIA CVA symptoms. The patient continues to be in classic atrial flutter/typical atrial flutter, with a controlled ventricular response. There is no ventricular arrhythmia seen on the prior monitor. There is no bradycardia or pauses. PHYSICAL EXAMINATION: The patient is well-built and well-nourished. In no acute distress. Selected Entries 06/02/18 11:36 Temperature 97.7 F Temperature Oral Source Pulse Rate 82 Respiratory 19 Rate Blood Pressure 128/54 H Blood Pressure 78 Mean BP Location Right Arm BP Position Supine O2 Sat by Pulse 91 L Oximetry Oxygen Flow 2.00 Rate Oxygen Delivery Nasal Cannula Method HEAD: Is atraumatic normocephalic. EYES: Pupils equal round regular reactive to light and accommodation. Extraocular movements are normal. There is no conjunctival pallor. There is no scleral icterus. The patient is legally blind. ENT: Is negative. NECK: Supple. There is no JVD. Carotids are equal there is no bruits. There is no lymphadenopathy. There is no goiter. Trachea central. There is no accessory muscles of respiration use. LUNGS: Show diminished air entry and prolonged expiration. There is no rhonchi rales or wheezing. There is no chest wall tenderness. On percussion there is hyperresonance throughout. HEART: S1-S2 is heard. S1 is of variable intensity. There is no S3 gallop. There is systolic murmur in the left sternal border and apex. There is no rub. ABDOMEN: Is soft. Nontender. There is no hepatosplenic megaly. Bowel sounds are well heard. There is no tender areas masses. EXTREMITIES: Is well felt femorals are well felt. There is no femoral bruits. Leg pulses are well felt. There is no pedal edema. There is no DVT or cellulitis. There is no calf tenderness. DISH PERSON: The patient is conscious awake alert oriented x3 with no focal deficit. PSYCHIATRIC: The patient is slightly irritable. His judgment and insight are intact. His affect is slightly aggressive. 05/30/18 05/31/18 06/02/18 18:18 06:09 10:19 WBC 6.1 Hgb 14.5 Hct 43.9 Plt Count 114 L Sodium 145.6 H 145.3 H Potassium 3.9 3.4 L Chloride 98 101 Carbon Dioxide 32 H 34 H Anion Gap 16 10 BUN 39 H 34 H Creatinine 1.86 H 1.63 H Est GFR (Non-Af Amer) 35 L 41 L Glucose 87 Calcium 8.4 Magnesium 06/02/18 10:19 WBC Hgb Hct Plt Count Sodium 144.4 Potassium 3.9 Chloride 100 Carbon Dioxide 31 H Anion Gap BUN 24 H Creatinine 1.33 H Est GFR (Non-Af Amer) 52 L Glucose 136 H Calcium 8.9 Magnesium 1.8 IMPRESSION/RECOMMENDATION: 1. Typical atrial flutter:: Ventricular response controlled. Would recommend stopping the patient's Lovenox. And converted the patient to Eliquis 5 mg p.o. twice daily. I have discussed the benefits and risks of Eliquis. Its role in stroke prophylaxis. And the risks of bleeding with Eliquis. The family are aware. Both her and understand and agree to be on it. Would continue the patient on Cardizem CD 120 mg p.o. every 12 hours. Later after 4- 6 weeks of being on Eliquis, the patient will be referred to EP cardiology for possible ablation of focus of atrial flutter. This has been discussed in detail with the patient patient's . 2. Hypertension: Blood pressure well controlled. 3. Acute exacerbation of COPD: Has resolved. At present patient back to baseline. Continue his anti-COPD treatment. 4. Acute renal failure on admission: GFR improved is now 52 mL. Suspect this will continue to improve. The patient advised with the patient's at the bedside, to avoid nephrotoxic drugs such as nonsteroidal anti-inflammatory agents. 5. Tobacco abuse disorder: Tobacco cessation counseling given to the patient 3 minutes spent on this. 11 active tobacco been explained.. 6. Multiple CAD risk factors, such as age, hypertension, and tobacco abuse. Would recommend outpatient IV Lexiscan Cardiolite stress test. The patient and the family desire to follow-up with me. I have given them my phone number. Patient medications have been reviewed. Medications adjusted, management plan discussed with the hospitalist taking care of the patient medical decision making is of moderate to high complexity. 40 minutes spent with the patient with more than 50% of time spent in direct patient care. The patient has my cell phone number to call me if he has any problems. We will follow the patient in the office. Thanking you for allowing me to participate in the care of this patient. Will sign off
[2018-06-02] MEDS ORDERED: LATANOPROST 0.005% OPH SOLN 2.5 ML OU SCH (22:00)
[2018-06-02] MEDS ORDERED: (PENDING PHARMACY ID) (Alprazolam [Xanax] 0.5 MG) PO SCH (22:00)
[2018-06-02] MEDS ORDERED: BUDESONIDE/FORMOTEROL 160-4.5 MCG 60 PUFF/6 GM MDI IH SCH (22:00)
[2018-06-02] MEDS ORDERED: ALPRAZOLAM 0.5 MG TABLET PO SCH (22:00)
[2018-06-02] MEDS ORDERED: SIMVASTATIN 40 MG TABLET PO SCH (22:00)
[2018-06-03] MEDS ORDERED: OMEGA PO SCH (10:00)
[2018-06-03] MEDS ORDERED: LUTEIN PO SCH (10:00)
[2018-06-03] MEDS ORDERED: VIT C PO SCH (10:00)
[2018-06-03] MEDS ORDERED: HYDROCHLOROTHIAZIDE 12.5 MG TABLET PO SCH (10:00)
[2018-06-03] MEDS ORDERED: VIT E PO SCH (10:00)
[2018-06-03] MEDS ORDERED: (PENDING PHARMACY ID) (Losartan/Hydrochlorothiazide [Hyzaar 100-12.5 Tablet] 1 TAB) PO SCH (10:00)
[2018-06-03] MEDS ORDERED: LOSARTAN POTASSIUM 50 MG TABLET PO SCH (10:00)
--- NOTE | 2018-06-03 12:16 | XCELERA REPORT ---
[address] [address] Transthoracic Echocardiogram Report Name: CHEIKH GIFFORD Age: 82 yrs Gender: Male : 1935 Patient Status: Inpatient Patient Location: [address] [place] [address] Study Date: 05/31/2018 06:16 PM Height: 71 in Weight: 155 lb BSA: 1.9 m2 Procedure: A two-dimensional transthoracic echocardiogram with color flow and Doppler was performed. Study Quality: Poor. The study was technically difficult with many images being suboptimal in quality. Reason For Study: atrial flutter History: atrial flutter. Ordering Physician: EMILIE COTTO Performed By: Shari Henriquez Interpretation Summary Very poor quality images.The posterior wall,the anteroseptum ,nd the IV septum probably contract normally.Cannot comment on other sharp.Visually no or AR.No other interpretation possible.. MMode/2D Measurements & Calculations RVDd: 2.0 cm LVIDd: 4.6 cm FS: 28.9 % Ao root diam: 2.6 cm IVSd: 1.1 cm LVIDs: 3.3 cm EDV(Teich): 96.4 ml Ao root area: 5.3 cm2 LVPWd: 0.94 cm ESV(Teich): 42.8 ml LA dimension: 2.7 cm EF(Teich): 55.6 % Doppler Measurements & Calculations MV E max marciano: MV P1/2t max marciano: Ao V2 max: LV V1 max P.7 cm/sec 78.2 cm/sec 58.4 cm/sec 1.6 mmHg MV A max marciano: MV P1/2t: 62.2 msec Ao max PG: LV V1 max: 73.5 cm/sec MVA(P1/2t): 3.5 cm2 1.4 mmHg 64.2 cm/sec MV E/A: 0.83 MV dec slope: 368.0 cm/sec2 MV dec time: 0.20 sec TV V2 max: PA V2 max: TR max marciano: MV P1/2t-pr_phl: 79.1 cm/sec 67.8 cm/sec 145.1 cm/sec 62.2 msec TV max PG: PA max P.8 mmHg TR max P.5 mmHg 8.4 mmHg Left Ventricle Very poor quality images.The posterior wall,the anteroseptum ,nd the IV septum probably contract normally.Cannot comment on other sharp.Visually no or AR.No other interpretation possible.. : EMILIE COTTO > Kamilla Gaines
--- NOTE | 2018-06-06 10:33 | PDOC CONSULTATION ---
Consultation Consult Date: 05/31/18 Attending physician:: CHEIKH CORDOVA Consult reason:: lung nodules/COPD History of Present Illness Admission Date/PCP: 05/30/18 22:38 ANIKA PERALTA MD History of Present Illness: CHEIKH GIFFORD is a 82 year old male for a history of cough increasing shortness of breath to the point it began to affect his activities of daily living yellow phlegm no hemoptysis chills but no fever nausea without vomiting long history of tobacco use. At the time of admission was noted to have a lung nodule as well Past Medical History Cardiac Medical History: Reports: Hypertension - MEDICATED Denies: Myocardial Infarction Pulmonary Medical History: Denies: Asthma Neurological Medical History: Denies: Seizures GI Medical History: Denies: Hepatitis, Hiatal Hernia Psychiatric Medical History: Reports: Tobacco Dependency Denies: Depression Hematology: Denies: Anemia, Sickle Cell Disease Past Surgical History Past Surgical History: Denies: Pacemaker Social History Information Source: Patient, [facility] Records Lives with: Family Smoking Status: Current Every Day Smoker Cigarettes Packs Per Day: 2 Passive smoke exposure as: Both Frequency of Alcohol Use: None Hx Recreational Drug Use: No Hx Prescription Drug Abuse: No Do you have pets?: No Have you had any respiratory illnesses as a child?: No Have you been exposed to any sick contacts recently?: No Have you had any recent respiratory illnesses?: No Have you travelled outside of [place] in the past 12 months?: No - Advance Directive Resuscitation Status: Full Code Family History Family History: Hypertension Parental Family History Reviewed: Yes Children Family History Reviewed: Yes Sibling(s) Family History Reviewed.: Yes Medication/Allergy Home Medications: Alprazolam [Xanax] 0.5 mg PO QHS 05/31/18 Budesonide/Formoterol Fumarate [Symbicort HFA 160-4.5 mcg Inhaler 6 gm] 2 puff IH Q12 05/31/18 Doxylamine Succinate [Unisom] 25 mg PO HSP PRN 05/31/18 Latanoprost [Xalatan] 1 drop OU QHS 05/31/18 Losartan/Hydrochlorothiazide [Hyzaar 100-12.5 Tablet] 1 tab PO DAILY 05/31/18 Simvastatin [Zocor 40 mg Tablet] 40 mg PO DAILY 05/31/18 Vit C/Vit E/Lutein/Min/Chisholm-3 [Ocuvite Softgel] 1 cap PO DAILY 05/31/18 Apixaban [Eliquis 5 mg Tablet] 5 mg PO BID 30 Days #30 tablet 06/02/18 Diltiazem HCl [Cardizem Cd 120 mg Capsule] 120 mg PO Q12 30 Days #60 cap.sr.24h 06/02/18 Allergies/Adverse Reactions: No Known Allergies Allergy (Unverified 01/03/13 10:33) Review of Systems Constitutional: PRESENT: chills, fatigue. ABSENT: fever(s), headache(s), night sweats Eyes: ABSENT: visual disturbances Ears: ABSENT: hearing changes Nose, Mouth, and Throat: ABSENT: mouth pain Cardiovascular: ABSENT: dyspnea on exertion, orthropnea, palpitations Respiratory: PRESENT: cough, dyspnea, sputum. ABSENT: hemoptysis Gastrointestinal: PRESENT: nausea. ABSENT: abdominal pain, bloating, coffee ground emesis, hematemesis, hematochezia, melena Genitourinary: ABSENT: difficulty urinating, dysuria, hematuria Musculoskeletal: ABSENT: deformity, joint swelling Integumentary: ABSENT: pruritus, [place] - [id number] Neurological: ABSENT: abnormal gait, abnormal movements, abnormal speech, confusion, focal weakness, lack of coordination, memory loss, numbness Psychiatric: ABSENT: hallucinations, homidical ideation, suicidal ideation Endocrine: ABSENT: cold intolerance, heat intolerance, polydipsia, polyuria Hematologic/Lymphatic: ABSENT: easy bruising, lymphadenopathy Allergic/Immunologic: ABSENT: seasonal rhinorrhea Physical Exam Vital Signs: Temp Pulse Resp BP Pulse Ox 98.0 F 97 18 139/61 H 90 L 06/02/18 16:06 06/02/18 16:06 06/02/18 16:06 06/02/18 16:06 06/02/18 16:06 General appearance: PRESENT: no acute distress, cooperative, disheveled, thin Head exam: PRESENT: normocephalic Eye exam: PRESENT: conjunctiva pale, EOMI. ABSENT: nystagmus Mouth exam: PRESENT: dry mucosa, neck supple, tongue midline Neck exam: ABSENT: carotid bruit, JVD, lymphadenopathy, thyromegaly, tracheal deviation, tracheostomy Respiratory exam: PRESENT: decreased breath sounds, prolonged expiratory phas, rales, rhonchi, unlabored, wheezes. ABSENT: retraction, stridor Cardiovascular exam: PRESENT: RRR, +S1, +S2 Pulses: PRESENT: normal radial pulses GI/Abdominal exam: PRESENT: soft. ABSENT: tenderness - [id number] Extremities exam: PRESENT: pedal edema. ABSENT: calf tenderness, clubbing, joint swelling Musculoskeletal exam: ABSENT: deformity, dislocation - [id number] Neurological exam: PRESENT: altered Skin exam: PRESENT: dry, warm Results Laboratory Results: 06/02/18 10:19 06/02/18 10:19 05/31/18 05/31/18 05/31/18 00:17 00:17 06:09 Creatine Kinase < 20 L 23 L CK-MB (CK-2) 0.95 Troponin I 0.083 05/31/18 05/31/18 05/31/18 06:09 12:33 12:33 Creatine Kinase 25 L CK-MB (CK-2) 1.04 1.04 Troponin I 0.085 0.069 Impressions: Chest X-Ray 05/30/18 18:51 IMPRESSION: Cannot exclude limited left lower lobe pneumonia. Cannot exclude mild pulmonary edema superimposed upon chronic interstitial changes. Chest/Abdomen CTA 05/30/18 19:41 IMPRESSION: Negative for pulmonary embolus. Severe emphysematous changes. Nodular/reticulonodular changes bilaterally which could in part relate to small airway inflammation/infection. However, more distinct nodules are also present including a 7.2 mm spiculated nodule in the lateral left lung base. Areas of nodular pleural thickening are also present. See below for recommended nodule or follow-up. Small left pleural effusion. Small hiatal hernia. Cholelithiasis. 2017 Fleischner Society Recommendations for Multiple Solid Lung Nodules Follow-Up base on size (average of long- and short-axis diameters). Use most suspicious nodule for followup. Nodule Size <6 mm Low-Risk Patient: No routine follow-up Nodule Size <6 mm High-Risk Patient: Optional CT at 12 months Nodule Size 6-8 mm Low-Risk Patient: CT at 3-[address] at 18-24 months Nodule Size 6-8 mm High-Risk Patient: CT at 3-6 months then at 18-24 months Nodule Size (mm) >8 Low-Risk Patient: CT at 3-6 months, then consider CT at 18-24 months Nodule Size (mm) >8 High-Risk Patient: CT at 3-6 months, then at 18-24 months . TECHNICAL DOCUMENTATION: Quality ID # 436: Final reports with documentation of one or more dose reduction techniques (e.g., Automated exposure control, adjustment of the mA and/or kV according to patient size, use of iterative reconstruction technique) 2010 [employer]- All Rights Reserved Head CT 05/31/18 00:00 IMPRESSION: MILD CHRONIC MICROVASCULAR ISCHEMIA. NO ACUTE IMAGING FINDINGS IN THE BRAIN. EVIDENCE OF ACUTE STROKE: NO. Assessment & Plan - Diagnosis (1) COPD exacerbation Is this a current diagnosis for this admission?: Yes Plan: Continue current bronchodilator therapy prophylactic coverage for community- acquired pneumonia (2) Lung nodule Is this a current diagnosis for this admission?: Yes Plan: I would not want to biopsy right now as biopsy would be confounded by acute inflammation
--- NOTE | 2018-06-06 10:38 | PDOC PROGRESS REPORT ---
Subjective Progress Note for:: 06/01/18 Subjective:: Slightly improved Reason For Visit: AFLUTTER ARF COPD EXACERBATION C SPICULATED LUNG Physical Exam Vital Signs: Temp Pulse Resp BP Pulse Ox 98.0 F 97 18 139/61 H 90 L 06/02/18 16:06 06/02/18 16:06 06/02/18 16:06 06/02/18 16:06 06/02/18 16:06 General appearance: PRESENT: no acute distress, cooperative, disheveled, thin Head exam: PRESENT: atraumatic, normocephalic Eye exam: PRESENT: conjunctiva pale, EOMI Mouth exam: PRESENT: dry mucosa, neck supple, tongue midline Neck exam: ABSENT: carotid bruit, JVD, lymphadenopathy, thyromegaly, tracheal deviation, tracheostomy Respiratory exam: PRESENT: decreased breath sounds, prolonged expiratory phas, rhonchi, symmetrical, unlabored, wheezes. ABSENT: stridor, tachypnea Cardiovascular exam: PRESENT: RRR, +S1, +S2 Pulses: PRESENT: normal radial pulses GI/Abdominal exam: PRESENT: soft. ABSENT: tenderness Extremities exam: PRESENT: pedal edema. ABSENT: clubbing, joint swelling Musculoskeletal exam: ABSENT: deformity, dislocation Neurological exam: PRESENT: awake - [id number] Skin exam: PRESENT: dry, warm Results Laboratory Results: 06/02/18 10:19 06/02/18 10:19 05/31/18 05/31/18 05/31/18 00:17 00:17 06:09 Creatine Kinase < 20 L 23 L CK-MB (CK-2) 0.95 Troponin I 0.083 05/31/18 05/31/18 05/31/18 06:09 12:33 12:33 Creatine Kinase 25 L CK-MB (CK-2) 1.04 1.04 Troponin I 0.085 0.069 Impressions: Chest X-Ray 05/30/18 18:51 IMPRESSION: Cannot exclude limited left lower lobe pneumonia. Cannot exclude mild pulmonary edema superimposed upon chronic interstitial changes. Chest/Abdomen CTA 05/30/18 19:41 IMPRESSION: Negative for pulmonary embolus. Severe emphysematous changes. Nodular/reticulonodular changes bilaterally which could in part relate to small airway inflammation/infection. However, more distinct nodules are also present including a 7.2 mm spiculated nodule in the lateral left lung base. Areas of nodular pleural thickening are also present. See below for recommended nodule or follow-up. Small left pleural effusion. Small hiatal hernia. Cholelithiasis. 2017 Fleischner Society Recommendations for Multiple Solid Lung Nodules Follow-Up base on size (average of long- and short-axis diameters). Use most suspicious nodule for followup. Nodule Size <6 mm Low-Risk Patient: No routine follow-up Nodule Size <6 mm High-Risk Patient: Optional CT at 12 months Nodule Size 6-8 mm Low-Risk Patient: CT at 3-[address] at 18-24 months Nodule Size 6-8 mm High-Risk Patient: CT at 3-6 months then at 18-24 months Nodule Size (mm) >8 Low-Risk Patient: CT at 3-6 months, then consider CT at 18-24 months Nodule Size (mm) >8 High-Risk Patient: CT at 3-6 months, then at 18-24 months . TECHNICAL DOCUMENTATION: Quality ID # 436: Final reports with documentation of one or more dose reduction techniques (e.g., Automated exposure control, adjustment of the mA and/or kV according to patient size, use of iterative reconstruction technique) 2010 [employer]- All Rights Reserved Head CT 05/31/18 00:00 IMPRESSION: MILD CHRONIC MICROVASCULAR ISCHEMIA. NO ACUTE IMAGING FINDINGS IN THE BRAIN. EVIDENCE OF ACUTE STROKE: NO. Assessment & Plan - Diagnosis (1) COPD exacerbation Is this a current diagnosis for this admission?: Yes Plan: Continue current bronchodilator therapy prophylactic coverage for community- acquired pneumonia (2) Lung nodule Is this a current diagnosis for this admission?: Yes Plan: will fu as out patient
== END 2018-06-02 16:57 | disposition home or self-care (01) | DRG 308 ==
LOC: ER 18:48 → EH 22:38 → 3W 05-31 01:46
PROVIDERS: ADMIT Internal Medicine; ATTEND Internal Medicine
DX: I48.92 Unspecified atrial flutter (principal); J18.9 Pneumonia, unspecified organism; N17.9 Acute kidney failure, unspecified; J44.1 Chronic obstructive pulmonary disease with (acute) exacerbation; I48.91 Unspecified atrial fibrillation; I10 Essential (primary) hypertension; R91.8 Other nonspecific abnormal finding of lung field; K80.20 Calculus of gallbladder without cholecystitis without obstruction; F41.9 Anxiety disorder, unspecified; F17.210 Nicotine dependence, cigarettes, uncomplicated
CPT/HCPCS: 36415; 70450; 71045; 71275; 80048; 80053; 81001; 82272; 82550; 82553; 82962; 83735; 84439; 84443; 84481; 84484; 85025; 85027; 93005; 93010; 93306; 94640; 94667; 94668; 94799; 96360; 99291; G8978-GP; G8979-GP; J0696; J1650; J2310; J2930; J3475; J3490; J7040

== ENCOUNTER → 2018-07-20 | Outpatient (CLI) | payer MEDICARE ==
[~2018-07-20] MED LIST: REGADENOSON INJ 0.4 MG/5 ML DISP.SYRIN IV ONE
--- NOTE | 2018-07-22 00:56 | DRAGON STRESS TEST REPORT ---
Intravenous Lexiscan Cardiolite stress test using single photon emmision computerized tomography. Date of procedure: 07/20/2018. Ordering Provider: Dr. Henrique Link. Patient's status: Out Patient Indication: Chest pain. Coronary risk factors: Age, hypertension, and dyslipidemia. Resting EKG: Sinus Rhythm. Within Normal Limits Stress EKG: No changes of ischemia. Reason for termination: Protocol. The patient had no chest pain or discomfort, and there were no arrhythmias seen. Conclusions: Normal EKG and hemodynamic response to IV Lexiscan. Nuclear data: At rest the patient was given 9.63 millicuries of technetium 99m sestamibi injected intravenously. As per protocol rest non gated SPECT images were obtained. Subsequently the patient was given intravenous Lexiscan at a dose of 0.4 mg in 5 mL intravenously, followed by flush with normal saline. Subsequently the stress dose of 32.4 millicuries of technetium 99m sestamibi was injected intravenously. As per protocol stress gated images were obtained. Nuclear interpretation: Review of images showed that all segments of the myocardium had normal perfusion at rest, and normal perfusion post stress with IV Lexiscan. All segments of the myocardium had normal motion, contraction, and thickening by gated study. T. I D. ratio was normal at 1.10. There is no transient ischemic calcification of the left ventricle. Computer read rest, and stress left ventricular ejection fraction were 42 %, and 39 %, respectively. Visually both the stress and rest ejection fractions were normal, and greater than 55%. Conclusion: 1. There is no scintigraphic evidence of Lexiscan induced myocardial ischemia. 2. There is no scintigraphic evidence of myocardial infarction/scar. Recommendations: 1. Check echo for LVEF correlation. 2. Aggressive risk factor modification, and treating the underlying co- morbidities. [facility]
== END ==
LOC: RAD 07:29
PROVIDERS: ATTEND Specialist
DX: R07.9 Chest pain, unspecified (principal); I10 Essential (primary) hypertension; E78.5 Hyperlipidemia, unspecified
CPT/HCPCS: 93017; 78452; A9500; J2785; Q9969

== ENCOUNTER → 2018-09-20 | Outpatient (CLI) | payer MEDICARE ==
--- NOTE | 2018-09-20 14:04 | RADIOLOGY REPORT (SQ) ---
EXAM DESCRIPTION: CT CHEST WITHOUT COMPLETED DATE/TIME: 09/20/2018 1:26 pm REASON FOR STUDY: R91.1 SOLITARY PULMONARY NODULE R91.1 SOLITARY PULMONARY NODULE COMPARISON: 05/30/2018 TECHNIQUE: CT scan performed of the chest without intravenous contrast. Images reviewed with lung, soft tissue and bone windows. Reconstructed coronal and sagittal MPR images reviewed. All images st ored on PACS. All CT scanners at this facility use dose modulation, iterative reconstruction, and/or weight based d osing when appropriate to reduce radiation dose to as low as reasonably achievable (ALARA). [facility]: Dose Right [facility]: CareDose [facility]: Dose Right [facility]: Teradose 4D [facility]: Smart [employer] RADIATION DOSE: CT Rad equipment meets quality standard of care and radiation dose reduction techniq ues were employed. CTDIvol: 4.7 mGy. DLP: 203 mGy-cm. mGy. LIMITATIONS: No technical limitations. FINDINGS: LUNGS AND PLEURA: Severe emphysematous changes are present bilaterally with subpleural ble bs. There is central bronchiectasis. There is scarring in both lung apices. There is a 13.3 mm ple ural-based nodule in the posterior right upper lobe unchanged from prior study. The focal airspace d isease in the anterior aspect of the left upper lobe has resolved. The 7 mm nodule described in the lateral aspect of the left base has resolved. Stable subpleural scarring in the right base laterally . There are small bilateral pleural effusions. HILAR AND MEDIASTINAL STRUCTURES: No identified masses or abnormal nodes. No obvious aneurysm. HEART AND VASCULAR STRUCTURES: No aneurysm. No pericardial effusion. UPPER ABDOMEN: No significant findings. Limited exam. THYROID AND OTHER SOFT TISSUES: No masses. No adenopathy. BONES: No significant finding. HARDWARE: None in the chest. OTHER: No other significant findings. IMPRESSION: COPD. Small effusions. Subpleural nodules are stable when compared to May. 7 mm parenchymal nodule in the periphery of the left lower lobe has resolved. TECHNICAL DOCUMENTATION: JOB ID: [id number] Quality ID # [id number]: Final reports with documentation of one or more dose reduction techniques (e.g., Au tomated exposure control, adjustment of the mA and/or kV according to patient size, use of iterative reconstruction technique) 2010 [employer]- All Rights Reserved Reading location - IP/workstation name: [email or web address]
== END ==
LOC: RAD 15:09
PROVIDERS: ATTEND Internal Medicine Pulmonary Disease
DX: R91.1 Solitary pulmonary nodule (principal)
CPT/HCPCS: 71250

== ENCOUNTER 2018-10-14 14:14 | Emergency (ER) | payer MEDICARE ==
[2018-10-14 14:24] VITALS: BP 131/75
[2018-10-14 15:02] LABS: APPEARANCE,URINE CLEAR; BILIRUBIN,URINE NEGATIVE (NEGATIVE); GLUCOSE, URINE NEGATIVE (NEGATIVE); KETONES,URINE NEGATIVE (NEGATIVE); LEUKOCYTE ESTERASE,URINE NEGATIVE (NEGATIVE); NITRITE,URINE POSITIVE (NEGATIVE); PROTEIN,URINE NEGATIVE (NEGATIVE); URINE SPECIFIC GRAVITY 1.011
[2018-10-14 15:03] LABS: COLOR,URINE YELLOW
[2018-10-14] MEDS ORDERED: CEFTRIAXONE 1 GM/D5W RTU 1 GM/50 ML RTUPB IV ONE (16:38)
[2018-10-14 16:53] LABS: ABSOLUTE EOSINOPHILS # (AUTO) 0.1 10^3/uL (0.0-0.6); ABSOLUTE LYMPHOCYTES (AUTO) 0.8 10^3/uL (0.5-4.7); ABSOLUTE MONOCYTES (AUTO) 0.8 10^3/uL (0.1-1.4); ABSOLUTE NEUT (AUTO) 7.7 10^3/uL (1.7-8.2); BASOPHILS % (AUTO) 0.5 % (0-2); EOSINOPHILS % (AUTO) 1.4 % (0-6); HEMOGLOBIN 12.5 g/dL (13.5-17.0); LYMPHOCYTES % (AUTO) 8.3 % (13-45); MEAN CORPUSCULAR HEMOGLOBIN 31.1 pg (27.0-33.4); MEAN CORPUSCULAR HGB CONC 33.7 g/dL (32.0-36.0); MEAN CORPUSCULAR VOLUME 92 fl (80-97); MONOCYTES % (AUTO) 8.2 % (3-13); PLATELET COUNT 166 10^3/uL (150-450); RED BLOOD COUNT 4.01 10^6/uL (4.35-5.55); RED CELL DISTRIBUTION WIDTH 14.4 % (11.5-14.0); SEGMENTED NEUTROPHILS % (AUTO) 81.6 % (42-78); TOTAL CELLS COUNTED % (AUTO) 100 %; WHITE BLOOD COUNT 9.5 10^3/uL (4.0-10.5)
[2018-10-14 17:10] LABS: ALANINE AMINOTRANSFERASE 18 U/L (21-72); ALKALINE PHOSPHATASE 74 U/L (38-126); ANION GAP 7 (5-19); ASPARTATE AMINO TRANSFERASE 15 U/L (17-59); BILIRUBIN,DIRECT 0.1 mg/dL (0.0-0.4); BILIRUBIN,TOTAL 0.9 mg/dL (0.2-1.3); BLOOD UREA NITROGEN 42 mg/dL (7-20); CALCIUM 8.9 mg/dL (8.4-10.2); CARBON DIOXIDE 29 mmol/L (22-30); CHLORIDE 104 mmol/L (98-107); GLUCOSE 115 mg/dL (75-110); POTASSIUM 3.1 mmol/L (3.6-5.0); SODIUM 139.7 mmol/L (137-145); TOTAL PROTEIN 6.4 g/dL (6.3-8.2)
[2018-10-14] MEDS ORDERED: NORMAL SALINE 1000 ML 500 ML IV ONE (17:21)
[2018-10-14] MEDS ORDERED: POTASSIUM CHLORIDE 10 MEQ CAPSULE.ER PO ONE (17:26)
--- NOTE | 2018-10-14 17:26 | ER Document Report ---
ED GI/ - General Chief Complaint: Trouble Voiding Stated Complaint: URINARY DIFFICULTY Time Seen by Provider: 10/14/18 16:15 Primary Care Provider: ANIKA PERALTA MD [Primary Care Provider] - Follow up as needed Mode of Arrival: Ambulatory Information source: Patient Notes: Patient is an 83-year-old male who presents to the emergency department with complaints of dysuria, urinary frequency and urgency. Patient is accompanied by his daughters and his . Patient has not had any fever, nausea or vomiting. Patient denies any abdominal pain. Denies any history of urinary tract infection. TRAVEL OUTSIDE OF THE [place] IN LAST 30 DAYS: No - Related Data Allergies/Adverse Reactions: No Known Allergies Allergy (Unverified 01/03/13 10:33) Past Medical History - General Information source: Patient - Social History Smoking Status: Never Smoker Frequency of alcohol use: None Drug Abuse: None Family History: Hypertension Patient has suicidal ideation: No Patient has homicidal ideation: No - Past Medical History Cardiac Medical History: Reports: Hx Atrial Fibrillation, Hx Hypertension - MEDICATED Denies: Hx Heart Attack Pulmonary Medical History: Reports: Hx COPD - emphysema Denies: Hx Asthma Neurological Medical History: Denies: Hx Cerebrovascular Accident, Hx Seizures Renal/ Medical History: Denies: Hx Peritoneal Dialysis GI Medical History: Denies: Hx Hepatitis, Hx Hiatal Hernia, Hx Ulcer Psychiatric Medical History: Denies: Hx Depression Infectious Medical History: Denies: Hx Hepatitis Past Surgical History: Denies: Hx Open Heart Surgery, Hx Pacemaker Review of Systems - Review of Systems Constitutional: No symptoms reported EENT: No symptoms reported Cardiovascular: No symptoms reported Respiratory: No symptoms reported Gastrointestinal: No symptoms reported Genitourinary: Dysuria, Frequency, Urgency Male Genitourinary: No symptoms reported Musculoskeletal: No symptoms reported Skin: No symptoms reported Hematologic/Lymphatic: No symptoms reported Neurological/Psychological: No symptoms reported Physical Exam - Vital signs Vitals: Temp Pulse Resp BP Pulse Ox 97.3 F 105 H 20 131/75 H 95 10/14/18 14:22 10/14/18 14:22 10/14/18 14:22 10/14/18 14:22 10/14/18 14:22 - Notes Notes: PHYSICAL EXAMINATION: GENERAL: Well-appearing, well-nourished and in no acute distress. HEAD: Atraumatic, normocephalic. EYES: Pupils equal round and reactive to light, extraocular movements intact, sclera anicteric, conjunctiva are normal. ENT: Nares patent, oropharynx clear without exudates. Moist mucous membranes. NECK: Normal range of motion, supple without lymphadenopathy LUNGS: Breath sounds clear to auscultation bilaterally and equal. No wheezes rales or rhonchi. HEART: Regular rate and rhythm without murmurs ABDOMEN: Soft, nontender, nondistended abdomen. No guarding, no rebound. No masses appreciated. Musculoskeletal: Normal range of motion, no pitting or edema. No cyanosis. NEUROLOGICAL: Cranial nerves grossly intact. Normal speech, normal gait. Norm al sensory, motor exams PSYCH: Normal mood, normal affect. SKIN: Warm, Dry, normal turgor, no rashes or lesions noted. Course - Re-evaluation Re-evalutation: Patient's physical examination is unremarkable. Upon Villa insertion patient had 200 mL's of urine return, patient denies urinary retention, reports it is more urinary urgency and frequency. Patient was having some dysuria, states she started him on Azo yesterday. Patient does not have any CVA tenderness. He has not had fever. His vital signs are all within normal limits at time of evaluation today. Urinalysis with positive nitrites. This will be sent for culture. Patient will be given 1 g ceftriaxone IV and will be started on p.o. cephalexin. Patient was given a 500 cc bolus for mildly elevated creatinine. Patient will follow up with his primary care provider, they will call Wednesday for an appointment. - Vital Signs Vital signs: Temp Pulse Resp BP Pulse Ox 97.3 F 105 H 20 131/75 H 95 10/14/18 14:22 10/14/18 14:22 10/14/18 14:22 10/14/18 14:22 10/14/18 14:22 - Laboratory Result Diagrams: 10/14/18 16:45 10/14/18 16:45 Laboratory results interpreted by me: 10/14/18 10/14/18 10/14/18 14:27 16:45 16:45 RBC 4.01 L Hgb 12.5 L Hct 37.0 L RDW 14.4 H Seg Neutrophils % 81.6 H Lymphocytes % 8.3 L Potassium 3.1 L BUN 42 H Creatinine 1.53 H Est GFR ( Amer) 53 L Est GFR (Non-Af Amer) 44 L Glucose 115 H AST 15 L ALT 18 L Albumin 3.0 L Urine Nitrite POSITIVE H Urine Urobilinogen 4.0 H Urine Ascorbic Acid 40 H Discharge - Discharge Clinical Impression: Urinary tract infection Qualifiers: Urinary tract infection type: site unspecified Hematuria presence: without hematuria Qualified Code(s): N39.0 - Urinary tract infection, site not specified Condition: Stable Disposition: HOME, SELF-CARE Additional Instructions: Your urine shows findings consistent with a urinary tract infection. Please take all the antibiotics as directed even if your symptoms have improved. Please follow-up with your primary care physician as needed. Return to emergency room if you develop fever >101F, persistent vomiting, become lethargic, have severe pain in your sides, or any other symptoms that are c oncerning to you. Please take the antibiotics as prescribed. A urine culture is pending. If there is any abnormality with the urine culture someone will contact you in the next 2-3 days. Please call your primary care provider on Wednesday to schedule a follow-up appointment. I would like you to see him to possibly have your labs rechecked. Your potassium was on the low side today and your creatinine was slightly elevated. We gave you potassium replacement and also gave you some IV fluids. Please return to the emergency department for any additional concerns to include development of a fever, vomiting, lethargy or any other worsening symptoms. Prescriptions: Cephalexin [Cephalexin 500 MG Tablet] 1 tab PO BID #14 tablet Referrals: ANIKA PERALTA MD [Primary Care Provider] - Follow up as needed
== END 2018-10-14 19:00 | disposition home or self-care (01) ==
LOC: ER 14:14
DX: N39.0 Urinary tract infection, site not specified (principal); I48.91 Unspecified atrial fibrillation; I10 Essential (primary) hypertension; J44.9 Chronic obstructive pulmonary disease, unspecified
CPT/HCPCS: 99284; 51702; 96365; 36415; 87086; 85025; 87088; 80053; 81001; 87186; A9270; J0696

== ENCOUNTER → 2019-06-12 | Outpatient (CLI) | payer MEDICARE ==
--- NOTE | 2019-06-12 12:50 | RADIOLOGY REPORT (SQ) ---
EXAM DESCRIPTION: CT CHEST WITHOUT COMPLETED DATE/TIME: 06/12/2019 9:17 am REASON FOR STUDY: R91.1 SOLITARY PULMONARY NODULE R91.1 SOLITARY PULMONARY NODULE COMPARISON: 09/20/2018 TECHNIQUE: CT scan performed of the chest without intravenous contrast. Images reviewed with lung, soft tissue and bone windows. Reconstructed coronal and sagittal MPR images reviewed. All images st ored on PACS. All CT scanners at this facility use dose modulation, iterative reconstruction, and/or weight based d osing when appropriate to reduce radiation dose to as low as reasonably achievable (ALARA). [facility]: Dose Right [facility]: CareDose [facility]: Dose Right [facility]: Teradose 4D [facility]: Assurely RADIATION DOSE: CT Rad equipment meets quality standard of care and radiation dose reduction techniq ues were employed. CTDIvol: 7.9 mGy. DLP: 383 mGy-cm. mGy. LIMITATIONS: No technical limitations. FINDINGS: LUNGS AND PLEURA: Moderate -severe centrilobular emphysema. Right upper lobe pleural-base d nodule has resolved. Left upper lobe pleural based nodule measures 12 x 8 mm, previously 11 x 6 mm . Stable areas of scarring in the left lower lobe. HILAR AND MEDIASTINAL STRUCTURES: No identified masses or abnormal nodes. No obvious aneurysm. HEART AND VASCULAR STRUCTURES: No aneurysm. No pericardial effusion. UPPER ABDOMEN: Limited exam. Cholelithiasis. Atrophic left kidney. THYROID AND OTHER SOFT TISSUES: Stable small thyroid nodules. BONES: Nothing acute. HARDWARE: None in the chest. OTHER: No other significant findings. IMPRESSION: Slight increase in size of left upper lobe nodule. Right upper lobe nodule has resolved . TECHNICAL DOCUMENTATION: JOB ID: [id number] Quality ID # [id number]: Final reports with documentation of one or more dose reduction techniques (e.g., Au tomated exposure control, adjustment of the mA and/or kV according to patient size, use of iterative reconstruction technique) 2010 [employer]- All Rights Reserved Reading location - IP/workstation name: [email or web address]
== END ==
LOC: RAD 09:06
PROVIDERS: ATTEND Internal Medicine Pulmonary Disease
DX: R91.1 Solitary pulmonary nodule (principal)
CPT/HCPCS: 71250

== ENCOUNTER 2019-10-20 17:19 | Emergency (ER) | payer MEDICARE ==
--- NOTE | 2019-10-20 17:45 | ER Document Report ---
ED Medical Screen (RME) - General Chief Complaint: Urinary Problem Stated Complaint: URINARY ISSUES Primary Care Provider: STEPHANIE MONTES MD [Primary Care Provider] - Follow up as needed Notes: Patient is an 84-year-old white male with a past medical history of urinary retention who presents to the emergency department the chief complaint of the same. States for the past 2 nights he is unable to urinate. States he has "dribbles". Denies any fullness in the bladder or tenderness. He states he has any urgency and sensation to urinate but cannot. He has not seen a urologist for this condition yet. Denies any other pain, complaints or concerns at this time. I have treated and performed a rapid initial assessment of this patient. A comprehensive ED assessment and evaluation of the patient, analysis of test results and completion of medical decision making process will be conducted by additional ED providers. PHYSICAL EXAMINATION: GENERAL: Well-appearing, well-nourished and in no acute distress. A&Ox4. Answers questions appropriately. TRAVEL OUTSIDE OF THE [place] 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 Denies: Hx Asthma Neurological Medical History: Denies: Hx Cerebrovascular Accident, Hx Seizures Renal/ Medical History: Denies: Hx Peritoneal Dialysis GI Medical History: Denies: Hx Hepatitis, Hx Hiatal Hernia, Hx Ulcer Psychiatric Medical History: Denies: Hx Depression Infectious Medical History: Denies: Hx Hepatitis Past Surgical History: Denies: Hx Open Heart Surgery, Hx Pacemaker Physical Exam - Vital signs Vitals: Temp Pulse Resp BP Pulse Ox 97.5 F 62 20 161/57 H 93 10/20/19 17:24 10/20/19 17:24 10/20/19 17:24 10/20/19 17:24 10/20/19 17:24 Course - Vital Signs Vital signs: Temp Pulse Resp BP Pulse Ox 97.5 F 62 20 161/57 H 93 10/20/19 17:24 10/20/19 17:24 10/20/19 17:24 10/20/19 17:24 10/20/19 17:24 Doctor's Discharge - Discharge Referrals: STEPHANIE MONTES MD [Primary Care Provider] - Follow up as needed
[2019-10-20 18:32] LABS: APPEARANCE,URINE SLIGHTLY-CLOUDY; BILIRUBIN,URINE NEGATIVE (NEGATIVE); COLOR,URINE AMBER; GLUCOSE, URINE NEGATIVE (NEGATIVE); KETONES,URINE NEGATIVE (NEGATIVE); LEUKOCYTE ESTERASE,URINE NEGATIVE (NEGATIVE); NITRITE,URINE POSITIVE (NEGATIVE); PROTEIN,URINE NEGATIVE (NEGATIVE); URINE SPECIFIC GRAVITY 1.015
--- NOTE | 2019-10-20 18:33 | ER Document Report ---
ED GI/ - General Chief Complaint: Inability to Void Stated Complaint: URINARY ISSUES Time Seen by Provider: 10/20/19 18:14 Primary Care Provider: STEPHANIE MONTES MD [ACTIVE STAFF] - Follow up as needed Notes: CHIEF COMPLAINT: Urinary frequency for 2 days HPI: 84-year-old male presenting to the emergency department complaining of urinary frequency over the last 2 days. Denies abdominal pain nausea vomiting denies fever. Denies penile or testicular pain. States he had something similar 1 year ago. Denies back pain ROS: See HPI - all other systems were reviewed and are otherwise negative Constitutional: no fever GI: no vomiting, no diarrhea, no abdominal pain : no dysuria, positive frequency Integumentary: no rash Allergy: no hives Musculoskeletal: no extremity pain or swelling Neurological: no incontinence of urine or bowel MEDICATIONS: I agree with the patient medications as charted by the RN. ALLERGIES: I agree with the allergies as charted by the RN. PAST MEDICAL HISTORY/PAST SURGICAL HISTORY: Reviewed and agree as charted by RN. SOCIAL HISTORY: Reviewed and agree as charted by RN. FAMILY HISTORY: No significant familial comorbid conditions directly related to patient complaint EXAM: Reviewed vital signs as charted by RN. CONSTITUTIONAL: Alert and oriented and responds appropriately to questions. Well-appearing; well-nourished HEAD: Normocephalic; atraumatic EYES: PERRL; Conjunctivae clear, sclerae non-icteric ENT: normal nose; no rhinorrhea; moist mucous membranes NECK: Supple without meningismus CARD: symmetric distal pulses RESP: Normal chest excursion without splinting or tachypnea ABD/GI: Normal bowel sounds; non-distended; soft, non-tender, no rebound, no guarding; no palpable organomegaly or masses. BACK: The back appears normal and is non-tender to palpation, there is no CVA tenderness EXT: Normal ROM in all joints; no cyanosis, no effusions, no edema SKIN: Normal color for age and race; warm; dry; good turgor NEURO: Moves all extremities equally; Motor and sensory function intact PSYCH: The patient's mood and manner are appropriate. Grooming and personal hygiene are appropriate. MDM: 84-year-old male presenting with urinary frequency for 2 days. No fever or abdominal pain. Will send urinalysis. Was here 1 year ago for same complaint and diagnosed with UTI with improvement in symptoms with antibiotics TRAVEL OUTSIDE OF THE [place] IN LAST 30 DAYS: No - Related Data Allergies/Adverse Reactions: No Known Allergies Allergy (Verified 10/20/19 17:40) Home Medications: ask . 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 Denies: Hx Asthma Neurological Medical History: Denies: Hx Cerebrovascular Accident, Hx Seizures Renal/ Medical History: Denies: Hx Peritoneal Dialysis GI Medical History: Denies: Hx Hepatitis, Hx Hiatal Hernia, Hx Ulcer Psychiatric Medical History: Denies: Hx Depression Infectious Medical History: Denies: Hx Hepatitis Past Surgical History: Denies: Hx Open Heart Surgery, Hx Pacemaker Physical Exam - Vital signs Vitals: Temp Pulse Resp BP Pulse Ox 97.5 F 62 20 161/57 H 93 10/20/19 17:24 10/20/19 17:24 10/20/19 17:24 10/20/19 17:24 10/20/19 17:24 Course - Re-evaluation Re-evalutation: 10/20/19 18:48 Patient appears to have nitrates in his urine also significant amount of blood. Patient states that his primary care provider did start him on antibiotics yesterday he has taken 3 doses but does not recall what the medication is. He still has urinary frequency. Bladder scan seems to show at least 350 mL, he likely has acute retention from cystitis. Will have nursing place Villa catheter. Patient states that his PCP had called a urologist to have him followed up but they were unable to call him back today so he will get the urologist on the phone on Wednesday10/20/19 19:14 Patient BUN/creatinine is 40 and 2.45. This is elevated above patient's lab work from a year ago we do not have other lab work to give us a different baseline at this time. Discussed at length with the patient he does not want to be admitted. He needs to closely follow this up with his PCP for recheck. Discussed with Dr. Krishnamurthy attending - Vital Signs Vital signs: Temp Pulse Resp BP Pulse Ox 97.5 F 62 20 161/57 H 93 10/20/19 17:24 10/20/19 17:24 10/20/19 17:24 10/20/19 17:24 10/20/19 17:24 - Laboratory Result Diagrams: 10/20/19 18:30 10/20/19 18:30 Laboratory results interpreted by me: 10/20/19 10/20/19 10/20/19 18:12 18:30 18:30 RBC 4.28 L RDW 15.3 H Lymph % (Auto) 10.5 L Seg Neutrophils % 78.7 H BUN 40 H Creatinine 2.45 H Est GFR ( Amer) 31 L Est GFR (MDRD) Non-Af 25 L Glucose 131 H Urine Blood LARGE H Urine Nitrite POSITIVE H Urine Urobilinogen 2.0 H Urine Ascorbic Acid 40 H Discharge - Discharge Clinical Impression: Acute urinary retention, Acute cystitis with hematuria, Renal insufficiency Condition: Stable Disposition: HOME, SELF-CARE Instructions: Villa Catheter Care ([facility]), Urinary Retention ([facility]), Urinary Tract Infection ([facility]) Additional Instructions: Continue to take the antibiotics as prescribed by your PCP. Follow-up with urology for further evaluation and treatment as well as removal of the Villa catheter. Catheter care as instructed by nursing. Your BUN and creatinine were 40 and 2.45. These are moderately elevated. Please discuss this with your PCP for close follow-up and recheck. Referrals: STEPHANIE MONTES MD [ACTIVE STAFF] - Follow up as needed
[2019-10-20 18:45] LABS: ABSOLUTE EOSINOPHILS # (AUTO) 0.1 10^3/uL (0.0-0.6); ABSOLUTE LYMPHOCYTES (AUTO) 0.7 10^3/uL (0.5-4.7); ABSOLUTE MONOCYTES (AUTO) 0.6 10^3/uL (0.1-1.4); ABSOLUTE NEUT (AUTO) 5.6 10^3/uL (1.7-8.2); BASOPHILS % (AUTO) 0.6 % (0-2); EOSINOPHILS % (AUTO) 1.8 % (0-6); LYMPHOCYTES % (AUTO) 10.5 % (13-45); MEAN CORPUSCULAR HEMOGLOBIN 32.6 pg (27.0-33.4); MEAN CORPUSCULAR VOLUME 96 fl (80-97); MONOCYTES % (AUTO) 8.4 % (3-13); PLATELET COUNT 155 10^3/uL (150-450); RED BLOOD COUNT 4.28 10^6/uL (4.35-5.55); RED CELL DISTRIBUTION WIDTH 15.3 % (11.5-14.0); SEGMENTED NEUTROPHILS % (AUTO) 78.7 % (42-78); TOTAL CELLS COUNTED % (AUTO) 100 %; WHITE BLOOD COUNT 7.1 10^3/uL (4.0-10.5)
[2019-10-20 19:03] LABS: ALBUMIN 3.7 g/dL (3.5-5.0); ALKALINE PHOSPHATASE 79 U/L (38-126); ANION GAP 9 (5-19); ASPARTATE AMINO TRANSFERASE 25 U/L (17-59); BILIRUBIN,TOTAL 0.7 mg/dL (0.2-1.3); BLOOD UREA NITROGEN 40 mg/dL (7-20); CALCIUM 8.7 mg/dL (8.4-10.2); CARBON DIOXIDE 25 mmol/L (22-30); CHLORIDE 104 mmol/L (98-107); GLUCOSE 131 mg/dL (75-110); POTASSIUM 4.4 mmol/L (3.6-5.0); TOTAL PROTEIN 6.8 g/dL (6.3-8.2)
[2019-10-20 19:43] VITALS: BP 136/78
== END 2019-10-20 19:41 | disposition home or self-care (01) ==
LOC: ER 17:19
DX: N30.01 Acute cystitis with hematuria (principal); R33.9 Retention of urine, unspecified; N28.9 Disorder of kidney and ureter, unspecified; I48.91 Unspecified atrial fibrillation; I10 Essential (primary) hypertension
CPT/HCPCS: 36415; 51702; 80053; 81001; 85025; 87086; 87088; 87186; 99283

== ENCOUNTER 2020-05-14 14:26 | Inpatient (IN) | payer MEDICARE ==
--- OUTSIDE RECORDS SUMMARY | 2020-05-14 15:13 | XMS REPORT ---
:1935 Author Organization [facility] [address] [place] [address] Care Team Providers Name Role Phone Unavailable Unavailable Unavailable Allergies, Adverse Reactions, Alerts This patient has no known allergies or adverse reactions. Medications This patient has no known medications. Problems This patient has no known problems. Procedures This patient has no known procedures. Results This patient has no known results. Social History This patient has no known social history. Vital Signs This patient has no known vital signs.
[2020-05-14 15:21] LABS: ABSOLUTE EOSINOPHILS # (AUTO) 0.1 10^3/uL (0.0-0.6); ABSOLUTE LYMPHOCYTES (AUTO) 0.8 10^3/uL (0.5-4.7); ABSOLUTE MONOCYTES (AUTO) 0.5 10^3/uL (0.1-1.4); ABSOLUTE NEUT (AUTO) 4.2 10^3/uL (1.7-8.2); BASOPHILS % (AUTO) 0.5 % (0-2); EOSINOPHILS % (AUTO) 1.8 % (0-6); MEAN CORPUSCULAR HEMOGLOBIN 30.7 pg (27.0-33.4); MEAN CORPUSCULAR HGB CONC 32.5 g/dL (32.0-36.0); MEAN CORPUSCULAR VOLUME 94 fl (80-97); MONOCYTES % (AUTO) 8.1 % (3-13); PLATELET COUNT 105 10^3/uL (150-450); RED BLOOD COUNT 4.24 10^6/uL (4.35-5.55); RED CELL DISTRIBUTION WIDTH 14.1 % (11.5-14.0); SEGMENTED NEUTROPHILS % (AUTO) 75.6 % (42-78); TOTAL CELLS COUNTED % (AUTO) 100 %; WHITE BLOOD COUNT 5.6 10^3/uL (4.0-10.5)
[2020-05-14 15:22] LABS: VENOUS BLOOD HCO3 52.1 mmol/L (20-32)
[2020-05-14 15:28] LABS: PROTHROMBIN TIME 13.4 SEC (11.4-15.4); VENOUS BLOOD PCO2 138.3 mmHg (35-63); VENOUS BLOOD PH 7.19 (7.30-7.42)
--- NOTE | 2020-05-14 15:39 | RADIOLOGY REPORT (SQ) ---
EXAM DESCRIPTION: CHEST SINGLE VIEW IMAGES COMPLETED DATE/TIME: 05/14/2020 3:30 pm REASON FOR STUDY: sob COMPARISON: 05/30/2018 EXAM PARAMETERS: NUMBER OF VIEWS: One view. TECHNIQUE: Single frontal radiographic view of the chest acquired. RADIATION DOSE: NA LIMITATIONS: None. FINDINGS: LUNGS AND PLEURA: Subsegmental airspace disease in the left lower lobe. There is a backgr ound of emphysema and fibrosis. MEDIASTINUM AND HILAR STRUCTURES: No masses. Contour normal. HEART AND VASCULAR STRUCTURES: Stable heart size. Normal vasculature. BONES: No acute findings. HARDWARE: None in the chest. OTHER: No other significant finding. IMPRESSION: Left lower lobe pneumonia. TECHNICAL DOCUMENTATION: JOB ID: [id number] 2010 [employer]- All Rights Reserved Reading location - IP/workstation name: [email or web address]
[2020-05-14 15:41] LABS: ALBUMIN 3.1 g/dL (3.5-5.0); ALKALINE PHOSPHATASE 71 U/L (38-126); ASPARTATE AMINO TRANSFERASE 18 U/L (17-59); BILIRUBIN,DIRECT 0.3 mg/dL (0.0-0.4); BILIRUBIN,TOTAL 0.6 mg/dL (0.2-1.3); BLOOD UREA NITROGEN 20 mg/dL (7-20); CALCIUM 8.6 mg/dL (8.4-10.2); CHLORIDE 92 mmol/L (98-107); GLUCOSE 101 mg/dL (75-110); POTASSIUM 4.1 mmol/L (3.6-5.0)
[2020-05-14 15:51] LABS: ANION GAP 5 (5-19); CARBON DIOXIDE 43 mmol/L (22-30)
[2020-05-14] MEDS ORDERED: AZITHROMYCIN INJ 500 MG VIAL IV ONE (16:49)
[2020-05-14] MEDS ORDERED: CEFTRIAXONE 2 GM/D5W RTU 2 GM/50 ML RTUPB IV ONE (16:49)
[2020-05-14] MEDS ORDERED: NORMAL SALINE 1000 ML 2,310 ML IV ONE (17:15)
[2020-05-14 18:10] LABS: ARTERIAL BLOOD H2CO3 3.06 mmol/L (1.05-1.35); ARTERIAL BLOOD HCO3 42.5 mmol/L (20-24); ARTERIAL BLOOD PH 7.24 (7.35-7.45); ARTERIAL BLOOD TOTAL CO2 45.6 mmol/L (23-27)
[2020-05-14 18:11] LABS: ARTERIAL BLOOD FIO2 90%
[2020-05-14 18:14] LABS: ARTERIAL BLOOD PCO2 101.7 mmHg (35-45)
[2020-05-14] MEDS ORDERED: ALBUTEROL SULFATE 0.083% NEB 2.5 MG/3 ML AMPUL NEB ONE (18:17)
[2020-05-14] MEDS ORDERED: IPRATROPIUM/ALBUTEROL 0.5-2.5 MG/3 ML AMPUL NEB PRN ×2 (18:26→18:51)
[2020-05-14] MEDS ORDERED: PROMETHAZINE HCL INJ 25 MG/1 ML VIAL IV PRN (18:26)
[2020-05-14] MEDS ORDERED: ACETAMINOPHEN 325 MG TABLET PO PRN ×2 (18:26→18:51)
[2020-05-14] MEDS ORDERED: ONDANSETRON HCL INJ/PF 4 MG/2 ML SDV IV PRN ×2 (18:26→18:51)
[2020-05-14] MEDS ORDERED: LORAZEPAM 1 MG TABLET PO PRN (18:30)
[2020-05-14] MEDS ORDERED: HYDRALAZINE HCL INJ/PF 20 MG/1 ML SDV IV PRN (18:30)
[2020-05-14] MEDS ORDERED: METOPROLOL TARTRATE PF/INJ 5 MG/5 ML SDV IV PRN (18:30)
--- NOTE | 2020-05-14 18:40 | PDOC H&P ---
History of Present Illness Admission Date/PCP: ANIKA PERALTA MD History of Present Illness: CHEIKH GIFFORD is a 84 year old male with past medical history of A. fib, COPD, CKD, tobacco abuse, hypertension who was brought to ED by EMS after noted by family for patient to be having worsening shortness of breath and confusion. Patient was noted to be very hypoxic on 2 L nasal cannula, was started on 5 L by EMS, SPO2 went up to 70, was started on nonrebreather and SPO2 went up to 98%. Source of history is ED nurse who has talked with family, no family present at bedside, I have contacted his daughter who is listed emergency contact unfortunately did not get a return call. On my encounter patient is wearing his BiPAP, does not appear to be in any acute distress, alert and oriented x1, does not provide much history, denies any fever, chills, nausea, vomiting, diarrhea, constipation or any urinary symptoms. Patient is asking for his . In ED was noted to be hypoxic, ABG showed severe hypercarbia and chest x-ray showed left lower lobe pneumonia. Past Medical History Cardiac Medical History: Reports: Atrial Fibrillation, Hypertension - MEDICATED Denies: Myocardial Infarction Pulmonary Medical History: Reports: Chronic Obstructive Pulmonary Disease (COPD) - emphysema Denies: Asthma Neurological Medical History: Denies: Seizures GI Medical History: Denies: Hepatitis, Hiatal Hernia Psychiatric Medical History: Denies: Depression Hematology: Denies: Anemia, Sickle Cell Disease Past Surgical History Past Surgical History: Denies: Pacemaker Social History Smoking Status: Former Smoker Frequency of Alcohol Use: None Hx Recreational Drug Use: No Hx Prescription Drug Abuse: No Family History Family History: Hypertension Parental Family History Reviewed: Yes Children Family History Reviewed: Yes Sibling(s) Family History Reviewed.: Yes Medication/Allergy Home Medications: Alprazolam [Xanax] 0.5 mg PO QHS 05/31/18 Budesonide/Formoterol Fumarate [Symbicort HFA 160-4.5 mcg Inhaler 6 gm] 2 puff IH Q12 05/31/18 Doxylamine Succinate [Unisom] 25 mg PO HSP PRN 05/31/18 Latanoprost [Xalatan] 1 drop OU QHS 05/31/18 Losartan/Hydrochlorothiazide [Hyzaar 100-12.5 Tablet] 1 tab PO DAILY 05/31/18 Simvastatin [Zocor 40 mg Tablet] 40 mg PO DAILY 05/31/18 Vit C/Vit E/Lutein/Min/[place]-3 [Ocuvite Softgel] 1 cap PO DAILY 05/31/18 Apixaban [Eliquis 5 mg Tablet] 5 mg PO BID 30 Days #30 tablet 06/02/18 Diltiazem HCl [Cardizem Cd 120 mg Capsule] 120 mg PO Q12 30 Days #60 cap.sr.24h 06/02/18 Cephalexin [Cephalexin 500 MG Tablet] 1 tab PO BID #14 tablet 10/14/18 Allergies/Adverse Reactions: No Known Allergies Allergy (Verified 10/20/19 17:40) Review of Systems Review of Systems: as per hpi Physical Exam Vital Signs: Temp Pulse Resp BP Pulse Ox 97.4 F 20 99/68 L 99 05/14/20 15:18 05/14/20 17:33 05/14/20 17:33 05/14/20 17:33 Intake & Output 05/13/20 05/14/20 05/15/20 06:59 06:59 06:59 Intake Total 50 Balance 50 Weight 77 kg General appearance: PRESENT: no acute distress, well-developed, well-nourished Head exam: PRESENT: atraumatic, normocephalic Respiratory exam: PRESENT: clear to auscultation thais, decreased breath sounds, symmetrical, tachypnea. ABSENT: rales, rhonchi, wheezes Cardiovascular exam: PRESENT: RRR. ABSENT: diastolic murmur, rubs, systolic murmur GI/Abdominal exam: PRESENT: normal bowel sounds, soft. ABSENT: distended, guarding, mass, organolmegaly, rebound, tenderness Neurological exam: PRESENT: alert, awake, oriented to person, CN II-XII grossly intact. ABSENT: motor sensory deficit Results Laboratory Results: 05/14/20 14:47 05/14/20 14:47 05/14/20 05/14/20 05/14/20 14:47 14:47 14:47 WBC 5.6 RBC 4.24 L Hgb 13.0 L Hct 40.0 MCV 94 MCH 30.7 MCHC 32.5 RDW 14.1 H Plt Count 105 L Seg Neutrophils % 75.6 Carbonic Acid HCO3/H2CO3 Ratio ABG pH ABG pCO2 ABG pO2 ABG HCO3 ABG O2 Saturation ABG Base Excess VBG pH 7.19 L* VBG pCO2 138.3 H* VBG HCO3 52.1 H VBG Base Excess 16.0 FiO2 Sodium 140.3 Potassium 4.1 Chloride 92 L Carbon Dioxide 43 H* Anion Gap 5 BUN 20 Creatinine 1.16 Est GFR ( Amer) > 60 Glucose 101 Lactic Acid Calcium 8.6 Total Bilirubin 0.6 AST 18 Alkaline Phosphatase 71 Total Protein 6.0 L Albumin 3.1 L 05/14/20 05/14/20 14:47 17:31 WBC RBC Hgb Hct MCV MCH MCHC RDW Plt Count Seg Neutrophils % Carbonic Acid 3.06 H HCO3/H2CO3 Ratio 13:1 ABG pH 7.24 L ABG pCO2 101.7 H* ABG pO2 134.0 H ABG HCO3 42.5 H ABG O2 Saturation 98.0 ABG Base Excess 11.0 VBG pH VBG pCO2 VBG HCO3 VBG Base Excess FiO2 90% Sodium Potassium Chloride Carbon Dioxide Anion Gap BUN Creatinine Est GFR ( Amer) Glucose Lactic Acid 1.2 Calcium Total Bilirubin AST Alkaline Phosphatase Total Protein Albumin 05/14/20 14:47 Troponin I < 0.012 Impressions: Chest X-Ray 05/14/20 14:48 IMPRESSION: Left lower lobe pneumonia. Assessment and Plan - Diagnosis (1) Acute respiratory failure with hypercapnia Is this a current diagnosis for this admission?: Yes Plan: Likely due to COPD exacerbation complicated by underlying pneumonia. Admit to IMCU, BiPAP, duo nebs, flutter valve, incentive spirometry, empiric broad-spectrum IV antibiotics. (2) Pneumonia Is this a current diagnosis for this admission?: Yes Plan: Community-acquired, likely due to strep pneumonia. Empiric IV antibiotics. Plan as per #1. (3) COPD (chronic obstructive pulmonary disease) Qualifiers: COPD type: COPD with acute exacerbation Qualified Code(s): J44.1 - Chronic obstructive pulmonary disease with (acute) exacerbation Is this a current diagnosis for this admission?: Yes Plan: History of oxygen dependent COPD. 2 L nasal cannula. Plan as per #1. - Time Time Spent with patient: 35 or more minutes Medications reviewed and adjusted accordingly: Yes Anticipated Discharge Disposition: [facility] Anticipated Discharge Timeframe: within 72 hours
--- NOTE | 2020-05-14 18:44 | ER Document Report ---
ED General - General Chief Complaint: Shortness Of Breath Stated Complaint: DIFFICULTY BREATHING Time Seen by Provider: 05/14/20 14:48 Primary Care Provider: ANIKA PERALTA MD [Primary Care Provider] - Follow up as needed Mode of Arrival: Medic Information source: Patient, Relative, Emergency Med Personnel TRAVEL OUTSIDE OF THE [place] IN LAST 30 DAYS: No - HPI Notes: Patient was brought in by ambulance. Patient was brought in for shortness of breath and altered mental status. According to , who I talked with on the phone, patient has been having increased confusion over the last couple of days and been weaker. Patient is also been more short of breath. Patient here has been confused such that history was not reliable. Currently at this time he denies any symptoms such as shortness of breath or pain. He has had somewhat of a dry cough according to . No vomiting or diarrhea. No known Covid exposures. His shortness of breath has been constant and moderate to severe. It has been worse with exertion and better with rest. - Related Data Allergies/Adverse Reactions: No Known Allergies Allergy (Verified 10/20/19 17:40) Past Medical History - General Information source: Patient, Relative, Emergency Med Personnel - Social History Smoking Status: Former Smoker Frequency of alcohol use: None Drug Abuse: None Family History: Hypertension - Past Medical History Cardiac Medical History: Reports: Hx Atrial Fibrillation, Hx Hypertension - M EDICATED Denies: Hx Heart Attack Pulmonary Medical History: Reports: Hx COPD - emphysema Denies: Hx Asthma Neurological Medical History: Denies: Hx Cerebrovascular Accident, Hx Seizures Renal/ Medical History: Denies: Hx Peritoneal Dialysis GI Medical History: Denies: Hx Hepatitis, Hx Hiatal Hernia, Hx Ulcer Psychiatric Medical History: Denies: Hx Depression Infectious Medical History: Denies: Hx Hepatitis Past Surgical History: Denies: Hx Open Heart Surgery, Hx Pacemaker Review of Systems - Review of Systems -: Yes ROS unobtainable due to patient's medical condition - Review of symptoms is unobtainable due to confusion Physical Exam - Vital signs Vitals: Resp Pulse Ox 20 98 05/14/20 14:41 05/14/20 14:41 Interpretation: Hypoxic - General General appearance: Lethargic In distress: Mild - Respiratory - HEENT Head: Normocephalic, Atraumatic Eyes: Normal Pupils: PERRL - Respiratory Respiratory status: Respiratory distress - Mild Chest status: Nontender Breath sounds: Decreased air movement, Rhonchi, Wheezing Chest palpation: Normal - Cardiovascular Rhythm: Regular Heart sounds: Normal auscultation Murmur: No - Abdominal Inspection: Normal Distension: No distension Bowel sounds: Normal Tenderness: Nontender Organomegaly: No organomegaly - Back Back: Normal, Nontender - Extremities General upper extremity: Normal inspection, Nontender, Normal color, Normal temperature General lower extremity: Nontender, Edema - 2+ bilaterally, Normal color, Normal temperature. No: Marce's sign - Neurological Neuro grossly intact: Yes Cognition: Confused Orientation: Disoriented to place, Disoriented to time [place] Coma Scale Eye Opening: Spontaneous [place] Coma Scale Verbal: Confused Sally Coma Scale Motor: Obeys Commands [place] Coma Scale Total: 14 Speech: Normal Motor strength normal: LUE, RUE, LLE, RLE Sensory: Normal - Psychological Associated symptoms: Confused, Psychomotor depression - Skin Skin Temperature: Warm Skin Moisture: Dry Skin Color: Normal Course - Re-evaluation Re-evalutation: 05/14/20 18:45 Patient has a shortness of breath and altered mental status. Patient was significantly hypoxic on room air. He was placed on BiPAP and has had excellent saturations of 100%. His tidal volumes have been good. He is slowly improving his PCO2 and his pH. He is alert and talking to me although somewhat confused still. At this time there is no evidence that he would require intubation. I did call and discussed the case with the who wishes for him to be full code at this time. Patient does have a pneumonia on x-ray and he has been started on antibiotics and IV fluids. Vital signs are currently stable. - Vital Signs Vital signs: Temp Pulse Resp BP Pulse Ox 97.4 F 20 99/68 L 99 05/14/20 15:18 05/14/20 17:33 05/14/20 17:33 05/14/20 17:33 - Laboratory Result Diagrams: 05/14/20 14:47 05/14/20 14:47 Laboratory results interpreted by me: 05/14/20 05/14/20 05/14/20 14:47 14:47 14:47 RBC 4.24 L Hgb 13.0 L RDW 14.1 H Plt Count 105 L Carbonic Acid ABG pH ABG pCO2 ABG pO2 ABG HCO3 ABG Total CO2 VBG pH 7.19 L* VBG pCO2 138.3 H* VBG HCO3 52.1 H Chloride 92 L Carbon Dioxide 43 H* Total Protein 6.0 L Albumin 3.1 L 05/14/20 17:31 RBC Hgb RDW Plt Count Carbonic Acid 3.06 H ABG pH 7.24 L ABG pCO2 101.7 H* ABG pO2 134.0 H ABG HCO3 42.5 H ABG Total CO2 45.6 H VBG pH VBG pCO2 VBG HCO3 Chloride Carbon Dioxide Total Protein Albumin - Diagnostic Test Radiology reviewed: Image reviewed, Reports reviewed Critical Care Note - Critical Care Note Total time excluding time spent on procedures (mins): 60 Comments: Approximately 60 minutes of critical care time were spent on this patient. This time was spent reviewing old records. It was spent discussing care with family. It is spent doing multiple reassessments. It was spent talking with multiple consultants. Patient reviewing imaging and laboratory values. Discharge - Discharge Clinical Impression: Acute respiratory failure with hypoxia and hypercapnia Pneumonia Qualifiers: Pneumonia type: due to unspecified organism Laterality: left Lung location: lower lobe of lung Qualified Code(s): J18.9 - Pneumonia, unspecified organism Condition: Critical Disposition: ADMITTED INPATIENT Admitting Provider: Jaime ([employer]am Clean [employer] Operator) Unit Admitted: ICU Referrals: ANIKA PERALTA MD [Primary Care Provider] - Follow up as needed
--- NOTE | 2020-05-14 18:49 | Progress Note ---
Provider Note Provider Note: Was contacted by ED physician to admit patient, after examining patient, putting admission orders, doing H&P was contacted by ED physician that patient will be admitted by Dr. Sandoval in ICU. We will go ahead and cancel H&P and admitting orders.
--- NOTE | 2020-05-14 18:51 | CRITICAL CARE ADMISSION REPORT ---
HPI Date:: 05/14/20 Time:: 18:40 Reason for ICU Reason:: Risk of intubation Admission Date/Time & PCP: Admission Date/Time: Primary Care Provider: ANIKA PERALTA MD HPI: This patient is an 84 yo man with hypercarbia from COPD. He has been SOB at home for about 2 days. He is in th ED on bipap with a CO2 of 101, pH 7.24. Family says full code, yes to intubation. He was hypoxic at home and his O2 sats still decrease when the bipap is off. Given his CO2, hypoxia and the need for ETT if he worsens he is best served in the ICU until his pH normalizes. His bicarb is elevated indicating CO2 retention but a pH of 7.24. History obtained from:: Dr. Colvin - Diagnosis/Plan (1) Acute respiratory failure with hypercapnia Is this a current diagnosis for this admission?: Yes Plan: He will need bipap until his pH normalizes, perhaps the ventilator if he does not. (2) COPD (chronic obstructive pulmonary disease) Qualifiers: COPD type: COPD with acute exacerbation Qualified Code(s): J44.1 - Chronic obstructive pulmonary disease with (acute) exacerbation Is this a current diagnosis for this admission?: Yes Plan: Steroids, nebulizers, bipap. (3) Pneumonia Qualifiers: Pneumonia type: aspiration pneumonia Laterality: bilateral Lung location: lower lobe of lung Is this a current diagnosis for this admission?: Yes Plan: He has all the characteristics of aspiration, CAP cannot be excluded, doubt COVID but this is possible. Plan Summary: Bipap, repeat ABG, steroids and nebulizers. Past Medical History Cardiac Medical History: Reports: Atrial Fibrillation, Hypertension - MEDICATED Denies: Myocardial Infarction Pulmonary Medical History: Reports: Chronic Obstructive Pulmonary Disease (COPD) - emphysema Denies: Asthma Neurological Medical History: Denies: Seizures GI Medical History: Denies: Hepatitis, Hiatal Hernia Psychiatric Medical History: Denies: Depression Hematology: Denies: Anemia, Sickle Cell Disease Past Surgical History Past Surgical History: Denies: Pacemaker Social/Family History - Social History Smoking Status: Former Smoker Frequency of Alcohol Use: None Hx Recreational Drug Use: No Hx Prescription Drug Abuse: No - Medication/Allergies Home Medications: Alprazolam [Xanax] 0.5 mg PO QHS 05/31/18 Budesonide/Formoterol Fumarate [Symbicort HFA 160-4.5 mcg Inhaler 6 gm] 2 puff IH Q12 05/31/18 Doxylamine Succinate [Unisom] 25 mg PO HSP PRN 05/31/18 Latanoprost [Xalatan] 1 drop OU QHS 05/31/18 Losartan/Hydrochlorothiazide [Hyzaar 100-12.5 Tablet] 1 tab PO DAILY 05/31/18 Simvastatin [Zocor 40 mg Tablet] 40 mg PO DAILY 05/31/18 Vit C/Vit E/Lutein/Min/Pollock-3 [Ocuvite Softgel] 1 cap PO DAILY 05/31/18 Apixaban [Eliquis 5 mg Tablet] 5 mg PO BID 30 Days #30 tablet 06/02/18 Diltiazem HCl [Cardizem Cd 120 mg Capsule] 120 mg PO Q12 30 Days #60 cap.sr.24h 06/02/18 Cephalexin [Cephalexin 500 MG Tablet] 1 tab PO BID #14 tablet 10/14/18 Allergies/Adverse Reactions: No Known Allergies Allergy (Verified 10/20/19 17:40) Review of Systems ROS unobtainable: Due to mental status Physical Exam Vital Signs: Temp Pulse Resp BP Pulse Ox 97.4 F 20 99/68 L 99 05/14/20 15:18 05/14/20 17:33 05/14/20 17:33 05/14/20 17:33 Intake & Output 05/13/20 05/14/20 05/15/20 06:59 06:59 06:59 Intake Total 50 Balance 50 Weight 77 kg Weight/Height Weight 77 kg Height 5 ft 7 in General appearance: PRESENT: no acute distress, cooperative Head exam: PRESENT: atraumatic, normocephalic Eye exam: PRESENT: conjunctiva pink, EOMI, PERRLA. ABSENT: scleral icterus Ear exam: PRESENT: normal external ear exam Mouth exam: PRESENT: moist, tongue midline Respiratory exam: PRESENT: decreased breath sounds Cardiovascular exam: PRESENT: tachycardia - Mild GI/Abdominal exam: PRESENT: normal bowel sounds, soft. ABSENT: distended, guarding, mass, organolmegaly, rebound, tenderness Rectal exam: PRESENT: deferred Extremities exam: PRESENT: full ROM. ABSENT: calf tenderness, clubbing, pedal edema Musculoskeletal exam: PRESENT: normal inspection Neurological exam: PRESENT: alert, altered, awake, other - Confused. Laboratory/Radiographs Laboratory Results: 05/14/20 14:47 05/14/20 14:47 05/14/20 05/14/20 05/14/20 14:47 14:47 14:47 WBC 5.6 RBC 4.24 L Hgb 13.0 L Hct 40.0 MCV 94 MCH 30.7 MCHC 32.5 RDW 14.1 H Plt Count 105 L Seg Neutrophils % 75.6 Carbonic Acid HCO3/H2CO3 Ratio ABG pH ABG pCO2 ABG pO2 ABG HCO3 ABG O2 Saturation ABG Base Excess VBG pH 7.19 L* VBG pCO2 138.3 H* VBG HCO3 52.1 H VBG Base Excess 16.0 FiO2 Sodium 140.3 Potassium 4.1 Chloride 92 L Carbon Dioxide 43 H* Anion Gap 5 BUN 20 Creatinine 1.16 Est GFR ( Amer) > 60 Glucose 101 Lactic Acid Calcium 8.6 Total Bilirubin 0.6 AST 18 Alkaline Phosphatase 71 Total Protein 6.0 L Albumin 3.1 L 05/14/20 05/14/20 14:47 17:31 WBC RBC Hgb Hct MCV MCH MCHC RDW Plt Count Seg Neutrophils % Carbonic Acid 3.06 H HCO3/H2CO3 Ratio 13:1 ABG pH 7.24 L ABG pCO2 101.7 H* ABG pO2 134.0 H ABG HCO3 42.5 H ABG O2 Saturation 98.0 ABG Base Excess 11.0 VBG pH VBG pCO2 VBG HCO3 VBG Base Excess FiO2 90% Sodium Potassium Chloride Carbon Dioxide Anion Gap BUN Creatinine Est GFR ( Amer) Glucose Lactic Acid 1.2 Calcium Total Bilirubin AST Alkaline Phosphatase Total Protein Albumin 05/14/20 14:47 Troponin I < 0.012 Impressions: Chest X-Ray 05/14/20 14:48 IMPRESSION: Left lower lobe pneumonia. All labs, radiographs, diagnostic studies and EKGs were personally reviewed: Yes In addition, reports of radiographic and diagnostic studies were read: Yes Critical Time Critical Time (minutes): 40 -: The care of a critically ill patient is dynamic. This note represents a static moment in the admission process. Orders and treatments may be given simultaneously and urgently, and time is not statement services representative of the treatment process. This patient requires Critical Care secondary to life threatening organ or limb dysfunction. Without Critical Care services, the patient is at risk for increased mortality and morbidity.
[2020-05-14] MEDS ORDERED: IPRATROPIUM/ALBUTEROL 0.5-2.5 MG/3 ML AMPUL NEB SCH (20:00)
[2020-05-14] MEDS ORDERED: HEPARIN SOD (PORCINE) 5,000 UNIT/ML 1 ML VIAL SUBCUT SCH (22:00)
[2020-05-14] MEDS ORDERED: FAMOTIDINE 20 MG TABLET PO SCH (22:00)
[2020-05-14 22:19] LABS: ARTERIAL BLOOD H2CO3 2.08 mmol/L (1.05-1.35); ARTERIAL BLOOD HCO3 36.6 mmol/L (20-24); ARTERIAL BLOOD PH 7.34 (7.35-7.45); ARTERIAL BLOOD PO2 46.1 mmHg (80-100); ARTERIAL BLOOD TOTAL CO2 38.8 mmol/L (23-27)
[2020-05-14 22:22] LABS: ARTERIAL BLOOD FIO2 35
[2020-05-14 22:27] LABS: APPEARANCE,URINE SLIGHTLY-CLOUDY; BILIRUBIN,URINE NEGATIVE (NEGATIVE); COLOR,URINE AMBER; GLUCOSE, URINE NEGATIVE (NEGATIVE); KETONES,URINE NEGATIVE (NEGATIVE); PROTEIN,URINE 30 mg/dL (NEGATIVE)
[2020-05-14] MEDS: METHYLPREDNISOLONE INJ 40 MG/1 ML SDV IV SCH (22:41)
[2020-05-14] MEDS: ENOXAPARIN SODIUM INJ 30 MG/0.3 ML DISP.SYRIN SUBCUT SCH (22:41)
[2020-05-14] MEDS: RINGERS SOLUTION,LACTATED 1,000 ML IV PRN (22:41)
[2020-05-15] MEDS: DEXMEDETOMIDINE IN 0.9 % NACL 400 MCG/100 ML RTUPB IV PRN ×4 (04:12→21:08)
[2020-05-15 04:45] LABS: ARTERIAL BLOOD BASE EXCESS 7.1 mmol/L; ARTERIAL BLOOD H2CO3 2.59 mmol/L (1.05-1.35); ARTERIAL BLOOD HCO3 37.3 mmol/L (20-24); ARTERIAL BLOOD O2 SATURATION 19.5 % (94-98); ARTERIAL BLOOD PH 7.26 (7.35-7.45)
[2020-05-15 04:48] LABS: ARTERIAL BLOOD FIO2 35%
[2020-05-15 04:50] LABS: ARTERIAL BLOOD PCO2 85.9 mmHg (35-45); ARTERIAL BLOOD PO2 17.8 mmHg (80-100)
[2020-05-15 05:09] LABS: ARTERIAL BLOOD BASE EXCESS 8.1 mmol/L; ARTERIAL BLOOD H2CO3 1.85 mmol/L (1.05-1.35); ARTERIAL BLOOD HCO3 35.3 mmol/L (20-24); ARTERIAL BLOOD O2 SATURATION 85.5 % (94-98); ARTERIAL BLOOD PCO2 61.3 mmHg (35-45); ARTERIAL BLOOD PH 7.38 (7.35-7.45); ARTERIAL BLOOD PO2 52.6 mmHg (80-100); ARTERIAL BLOOD TOTAL CO2 37.2 mmol/L (23-27)
[2020-05-15 05:10] LABS: ARTERIAL BLOOD FIO2 30%
[2020-05-15] MEDS: METHYLPREDNISOLONE INJ 40 MG/1 ML SDV IV SCH ×2 (05:51→18:48)
[2020-05-15 06:30] LABS: HEMATOCRIT 38.9 % (37.9-51.0); HEMOGLOBIN 12.6 g/dL (13.5-17.0); MEAN CORPUSCULAR HEMOGLOBIN 30.4 pg (27.0-33.4); MEAN CORPUSCULAR HGB CONC 32.5 g/dL (32.0-36.0); MEAN CORPUSCULAR VOLUME 94 fl (80-97); PLATELET COUNT 105 10^3/uL (150-450); RED BLOOD COUNT 4.15 10^6/uL (4.35-5.55); RED CELL DISTRIBUTION WIDTH 14.4 % (11.5-14.0); WHITE BLOOD COUNT 6.2 10^3/uL (4.0-10.5)
[2020-05-15 06:43] LABS: ANION GAP 8 (5-19); BLOOD UREA NITROGEN 21 mg/dL (7-20); CALCIUM 8.7 mg/dL (8.4-10.2); CARBON DIOXIDE 35 mmol/L (22-30); CHLORIDE 97 mmol/L (98-107); GLUCOSE 125 mg/dL (75-110); POTASSIUM 4.3 mmol/L (3.6-5.0)
[2020-05-15 06:54] LABS: ABSOLUTE LYMPHOCYTES# (MANUAL) 0.1 10^3/uL (0.5-4.7); ABSOLUTE MONOCYTES # (MANUAL) 0.1 10^3/uL (0.1-1.4); BASOPHILS % (MANUAL) 0 % (0-2); EOSINOPHILS % (MANUAL) 0 % (0-6); LYMPHOCYTES % (MANUAL) 2 % (13-45); MONOCYTES % (MANUAL) 2 % (3-13); SEGMENTED NEUTROPHILS % (MAN) 96 % (42-78); TOTAL CELLS COUNTED 100
[2020-05-15 06:55] LABS: ANISOCYTOSIS SLIGHT; PLATELET COMMENT DECREASED; TOXIC VACUOLATION PRESENT
--- NOTE | 2020-05-15 08:17 | RADIOLOGY REPORT (SQ) ---
EXAM DESCRIPTION: CHEST SINGLE VIEW IMAGES COMPLETED DATE/TIME: 05/15/2020 6:23 am REASON FOR STUDY: PNA COMPARISON: 05/14/2020 NUMBER OF VIEWS: One view. TECHNIQUE: Single frontal radiographic image of the chest acquired. LIMITATIONS: None. FINDINGS: LUNGS AND PLEURA: Stable appearance. MEDIASTINUM AND HILAR STRUCTURES: Stable heart size and mediastinal structures. HEART AND VASCULAR STRUCTURES: Stable appearance. BONES: No acute findings. HARDWARE: None in the chest. OTHER: No other significant finding. IMPRESSION: STABLE APPEARANCE OF THE CHEST. TECHNICAL DOCUMENTATION: JOB ID: [id number] 2010 [employer]- All Rights Reserved Reading location - IP/workstation name: [email or web address]
[2020-05-15] MEDS ORDERED: DILTIAZEM HCL 120 MG CAP.SR.24H PO SCH (10:00)
[2020-05-15] MEDS: ENOXAPARIN SODIUM INJ 30 MG/0.3 ML DISP.SYRIN SUBCUT SCH (10:23)
[2020-05-15] MEDS: RINGERS SOLUTION,LACTATED 1,000 ML IV PRN (12:05)
--- NOTE | 2020-05-15 13:30 | PDOC CRITICAL CARE PROG REPORT ---
General Date:: 05/15/20 ICU Day:: 1 Ventilator Day:: 1 Hospital Day:: 1 Resuscitation Status: Full Code Events in the past 12 to 24 Hours:: 05/15/20: Patient remains confused. He attempted to self DC Villa catheter with subsequent trauma and hemorrhage. He continues to rely on BiPAP to maintain SPO2 greater than 85%. No other acute events. Review of systems relevant to events:: ICU day: 1 Neuro: Patient remains confused. He continues to be on Precedex at 0.6. Plan: Titrate Precedex as needed. If unable to maintain adequate comfort level, we will consider adding antianxiety medications, never given his borderline respiratory status, we will remain conservative. Pulmonary: No current wheezing. Patient still relies on BiPAP to maintain saturation greater than 85%. IP: 16, EPAP: 8, RR: 16, FiO2 35%. CXR shows no acute infection however he does have a significantly expanded lung field consistent with significant COPD. LABA/LAMA/ICS added to patient's regimen. Continue with IV steroids Solu-Cortef 100 mg IV every 12. Last ABG was within normal limits. We will obtain another baseline ABG and record closely his minute ventilation on BiPAP during time of draw. Cardiovascular: Patient's rate and rhythm have remained normal. Continue to monitor given patient's risk of acute hypoxemia. Patient's baseline HCO3 is likely 33-35. Baseline CO2 is likely 55-60. Continue short acting bronchodilators as needed. Heme: H/H has been within normal limits. He has significant bleeding via Villa catheter this morning after urethral trauma from attempting to remove his Villa catheter. Obtain CBC this afternoon. If no significant change, continue Lovenox in a.m. Otherwise we we will hold it tomorrow. Renal: Magnesium was 1.5 this morning and was repleted. Patient has been making adequate urine. BUN/CR is stable. Urine output unable to be fully quantified however due to hemorrhage. Gastrointestinal: Patient is currently n.p.o. On BiPAP. I expect that he will be weaned off of BiPAP support over the next 24 to 48 hours and will be evaluated for feeding. GI prophylaxis: We will start Pepcid for stress ulcer prophylaxis. Continue Zofran as needed. : Significant hemorrhage as above secondary to attempt to self DC Villa catheter. We will monitor urine output closely as well as CBC. Currently, there are clots present in Villa catheter. If output diminishes, we will begin irrigation. ID: Patient currently remains afebrile with no leukocytosis. Given his history of COPD and acute exacerbation, we will watch his ID status closely. Barriers to discharge from ICU: Patient still with significant mental status changes as well as significant hypoxemia when off of BiPAP. We will continue steroids over the next 24 to 48 hours and attempt to wean off of BiPAP support. Reason for ICU Addmission:: Risk of intubation - Medications: Medications reviewed and adjusted accordingly: Yes Physical Exam Vital Signs: Temp Pulse Resp BP Pulse Ox 97.5 F 80 22 H 137/75 H 98 05/15/20 08:06 05/15/20 08:32 05/15/20 11:00 05/15/20 10:35 05/15/20 10:05 Intake & Output 05/14/20 05/15/20 05/16/20 06:59 06:59 06:59 Intake Total 2378 3882 Output Total 725 5160 Balance 1653 -1278 Weight 70.4 kg Weight/Height Weight 70.4 kg Height 5 ft 7 in General appearance: PRESENT: no acute distress, well-developed, well-nourished Head exam: PRESENT: atraumatic Eye exam: PRESENT: EOMI, PERRLA Ear exam: PRESENT: TM's normal bilaterally Mouth exam: PRESENT: dry mucosa, neck supple, tongue midline Neck exam: PRESENT: full ROM. ABSENT: carotid bruit, JVD, tracheal deviation Respiratory exam: PRESENT: prolonged expiratory phas, other - Is on BiPAP.. ABSENT: accessory muscle use, chest wall tenderness, rhonchi, wheezes Cardiovascular exam: PRESENT: RRR, +S1, +S2. ABSENT: diastolic murmur, systolic murmur Pulses: PRESENT: +1 pedal pulses bilateral Vascular exam: PRESENT: normal capillary refill, pallor GI/Abdominal exam: PRESENT: normal bowel sounds, soft. ABSENT: tenderness Gentrourinary exam: PRESENT: indwelling catheter, other - Hematemesis as in stems reviewed. Extremities exam: PRESENT: full ROM. ABSENT: joint swelling, pedal edema Musculoskeletal exam: PRESENT: full ROM, normal inspection Neurological exam: PRESENT: altered, CN II-XII grossly intact Psychiatric exam: PRESENT: agitated Focused psych exam: PRESENT: other - No appropriate and coherent responses. Skin exam: PRESENT: intact, normal color, warm. ABSENT: abrasion, cyanosis, rash, skin tears Tubes/Lines: PRESENT: Other - Villa catheter Laboratory/Radiographs Laboratory Results: 05/15/20 06:17 05/15/20 06:17 05/14/20 05/14/20 05/14/20 14:47 14:47 14:47 WBC 5.6 RBC 4.24 L Hgb 13.0 L Hct 40.0 MCV 94 MCH 30.7 MCHC 32.5 RDW 14.1 H Plt Count 105 L Seg Neutrophils % 75.6 Carbonic Acid HCO3/H2CO3 Ratio ABG pH ABG pCO2 ABG pO2 ABG HCO3 ABG O2 Saturation ABG Base Excess VBG pH 7.19 L* VBG pCO2 138.3 H* VBG HCO3 52.1 H VBG Base Excess 16.0 FiO2 Sodium 140.3 Potassium 4.1 Chloride 92 L Carbon Dioxide 43 H* Anion Gap 5 BUN 20 Creatinine 1.16 Est GFR ( Amer) > 60 Glucose 101 Lactic Acid Calcium 8.6 Magnesium Total Bilirubin 0.6 AST 18 Alkaline Phosphatase 71 Total Protein 6.0 L Albumin 3.1 L Urine Color Urine Appearance Urine pH Ur Specific Manquin Urine Protein Urine Glucose (UA) Urine Ketones Urine Blood Urine RBC (Auto) 05/14/20 05/14/20 05/14/20 14:47 14:47 17:31 WBC RBC Hgb Hct MCV MCH MCHC RDW Plt Count Seg Neutrophils % Carbonic Acid 3.06 H HCO3/H2CO3 Ratio 13:1 ABG pH 7.24 L ABG pCO2 101.7 H* ABG pO2 134.0 H ABG HCO3 42.5 H ABG O2 Saturation 98.0 ABG Base Excess 11.0 VBG pH VBG pCO2 VBG HCO3 VBG Base Excess FiO2 90% Sodium Potassium Chloride Carbon Dioxide Anion Gap BUN Creatinine Est GFR ( Amer) Glucose Lactic Acid 1.2 Calcium Magnesium 1.7 Total Bilirubin AST Alkaline Phosphatase Total Protein Albumin Urine Color Urine Appearance Urine pH Ur Specific Manquin Urine Protein Urine Glucose (UA) Urine Ketones Urine Blood Urine RBC (Auto) 05/14/20 05/14/20 05/14/20 20:22 21:34 22:12 WBC RBC Hgb Hct MCV MCH MCHC RDW Plt Count Seg Neutrophils % Carbonic Acid 2.08 H HCO3/H2CO3 Ratio 17:1 ABG pH 7.34 L ABG pCO2 69.0 H ABG pO2 46.1 L ABG HCO3 36.6 H ABG O2 Saturation 78.0 L ABG Base Excess 8.0 VBG pH VBG pCO2 VBG HCO3 VBG Base Excess FiO2 35 Sodium Potassium Chloride Carbon Dioxide Anion Gap BUN Creatinine Est GFR ( Amer) Glucose Lactic Acid 1.4 Calcium Magnesium Total Bilirubin AST Alkaline Phosphatase Total Protein Albumin Urine Color DOREEN Urine Appearance SLIGHTLY-CLOUDY Urine pH 5.0 Ur Specific Manquin 1.020 Urine Protein 30 H Urine Glucose (UA) NEGATIVE Urine Ketones NEGATIVE Urine Blood NEGATIVE Urine RBC (Auto) 2 05/15/20 05/15/20 05/15/20 04:30 04:40 06:17 WBC 6.2 RBC 4.15 L Hgb 12.6 L Hct 38.9 MCV 94 MCH 30.4 MCHC 32.5 RDW 14.4 H Plt Count 105 L Seg Neutrophils % Not Reportable Carbonic Acid 2.59 H 1.85 H HCO3/H2CO3 Ratio 14:1 19:1 ABG pH 7.26 L 7.38 ABG pCO2 85.9 H* 61.3 H ABG pO2 17.8 L* 52.6 L ABG HCO3 37.3 H 35.3 H ABG O2 Saturation 19.5 L 85.5 L ABG Base Excess 7.1 8.1 VBG pH VBG pCO2 VBG HCO3 VBG Base Excess FiO2 35% 30% Sodium Potassium Chloride Carbon Dioxide Anion Gap BUN Creatinine Est GFR ( Amer) Glucose Lactic Acid Calcium Magnesium Total Bilirubin AST Alkaline Phosphatase Total Protein Albumin Urine Color Urine Appearance Urine pH Ur Specific Manquin Urine Protein Urine Glucose (UA) Urine Ketones Urine Blood Urine RBC (Auto) 05/15/20 06:17 WBC RBC Hgb Hct MCV MCH MCHC RDW Plt Count Seg Neutrophils % Carbonic Acid HCO3/H2CO3 Ratio ABG pH ABG pCO2 ABG pO2 ABG HCO3 ABG O2 Saturation ABG Base Excess VBG pH VBG pCO2 VBG HCO3 VBG Base Excess FiO2 Sodium 140.4 Potassium 4.3 Chloride 97 L Carbon Dioxide 35 H Anion Gap 8 BUN 21 H Creatinine 1.05 Est GFR ( Amer) > 60 Glucose 125 H Lactic Acid Calcium 8.7 Magnesium 1.5 L Total Bilirubin AST Alkaline Phosphatase Total Protein Albumin Urine Color Urine Appearance Urine pH Ur Specific Manquin Urine Protein Urine Glucose (UA) Urine Ketones Urine Blood Urine RBC (Auto) 05/14/20 14:47 Troponin I < 0.012 Impressions: Chest X-Ray 05/15/20 05:00 IMPRESSION: STABLE APPEARANCE OF THE CHEST. All labs, radiographs, diagnostic studies and EKGs were personally reviewed: Yes In addition, reports of radiographic and diagnostic studies were read: Yes Assessment and Plan - Diagnosis (1) Acute respiratory failure with hypercapnia Is this a current diagnosis for this admission?: Yes Plan: Please see systems review for detail. Continue BiPAP Continue Trelegy LABA/LAMA/ICS Continue short acting bronchodilators as needed. Continue IV steroids. (2) COPD exacerbation Is this a current diagnosis for this admission?: Yes Plan: As above, Continue BiPAP support, long and short acting bronchodilators as well as IV steroids. Monitor closely for signs of pneumonia. Critical Time Critical Time (minutes): 68 Level of Care: ICU Anticipated discharge: Other - Certain at this time due to patient's acute condition. Anticipated DC Timeframe: within 72 hours -: 1. The care of a critical patient is a dynamic process. This note is a insurance representative synopsis but static in nature. The timeframe for treatments gi mady in order is not necessarily the actual time these treatments may have been done. 2. This patient requires critical care secondary to ongoing requirements for therapy not offered or safe outside the critical care environment. Transfer to a lower level of care will result in altered life or limb morbidity and mortality. 3. Multidisciplinary rounds completed. 4. ABCDE bundle addressed.
[2020-05-15 16:05] LABS: HEMATOCRIT 31.9 % (37.9-51.0); HEMOGLOBIN 10.7 g/dL (13.5-17.0); MEAN CORPUSCULAR HGB CONC 33.5 g/dL (32.0-36.0); MEAN CORPUSCULAR VOLUME 93 fl (80-97); RED BLOOD COUNT 3.45 10^6/uL (4.35-5.55); RED CELL DISTRIBUTION WIDTH 14.3 % (11.5-14.0); WHITE BLOOD COUNT 6.9 10^3/uL (4.0-10.5)
[2020-05-15 16:32] LABS: PLATELET COUNT 98 10^3/uL (150-450)
--- NOTE | 2020-05-15 17:17 | RADIOLOGY REPORT (SQ) ---
EXAM DESCRIPTION: CHEST SINGLE VIEW IMAGES COMPLETED DATE/TIME: 05/15/2020 5:01 pm REASON FOR STUDY: fluid overload COMPARISON: 05/15/2020 0500 hours EXAM PARAMETERS: NUMBER OF VIEWS: One view. TECHNIQUE: Single frontal radiographic view of the chest acquired. RADIATION DOSE: NA LIMITATIONS: None. FINDINGS: LUNGS AND PLEURA: Persistent moderate left effusion. Interstitial changes at the left bas e. Right lung is clear. Underlying COPD. MEDIASTINUM AND HILAR STRUCTURES: No masses. Contour normal. HEART AND VASCULAR STRUCTURES: Heart normal in size. Normal vasculature. BONES: No acute findings. HARDWARE: None in the chest. OTHER: No other significant finding. IMPRESSION: No improvement. Persistent moderate left effusion interstitial changes at the left base . TECHNICAL DOCUMENTATION: JOB ID: [id number] 2010 [employer]- All Rights Reserved Reading location - IP/workstation name: [email or web address]
[2020-05-15 17:31] LABS: ANION GAP 10 (5-19); BLOOD UREA NITROGEN 27 mg/dL (7-20); CALCIUM 8.3 mg/dL (8.4-10.2); CARBON DIOXIDE 28 mmol/L (22-30); CHLORIDE 101 mmol/L (98-107); GLUCOSE 144 mg/dL (75-110); POTASSIUM 4.6 mmol/L (3.6-5.0)
--- NOTE | 2020-05-15 17:52 | EKG REPORT ---
SEVERITY:- ABNORMAL ECG - ATRIAL FIBRILLATION, V-RATE 78-109 PAIRED VENTRICULAR PREMATURE COMPLEXES : Confirmed by: Jade Carbone 15-May-2020 17:52:15
[2020-05-15] MEDS ORDERED: CEFTRIAXONE 1 GM/D5W RTU 1 GM/50 ML RTUPB IV SCH (18:00)
[2020-05-15] MEDS ORDERED: RINGERS SOLUTION,LACTATED 1,000 ML IV ONE (20:15)
[2020-05-15 21:50] LABS: HEMATOCRIT 32.9 % (37.9-51.0); HEMOGLOBIN 10.6 g/dL (13.5-17.0); MEAN CORPUSCULAR HGB CONC 32.3 g/dL (32.0-36.0); MEAN CORPUSCULAR VOLUME 93 fl (80-97); PLATELET COUNT 102 10^3/uL (150-450); RED BLOOD COUNT 3.54 10^6/uL (4.35-5.55); RED CELL DISTRIBUTION WIDTH 14.4 % (11.5-14.0); WHITE BLOOD COUNT 8.3 10^3/uL (4.0-10.5)
[2020-05-15] MEDS ORDERED: AZITHROMYCIN 500 MG in DEXTROSE 5%-WATER 250 ML IV SCH (22:00)
[2020-05-15] MEDS ORDERED: NORMAL SALINE 500 ML IV PRN (22:39)
--- NOTE | 2020-05-15 22:43 | RADIOLOGY REPORT (SQ) ---
EXAM DESCRIPTION: Site: CT HEAD WITHOUT RP: CT HEAD WITHOUT IV CONTRAST CLINICAL HISTORY: 84 years Male; confusion; TECHNIQUE: Noncontrast CT head. All CT scans at this facility use dose modulation, iterative reconstruction, and/or weight based dosing when appropriate to reduce radiation dose to as low as reasonably achievable. COMPARISON: CT 05/31/2018 FINDINGS: Brain: Mild cerebral atrophy is similar. No acute hemorrhage or mass effect. No acute cortical edema. That was and cisterns are preserved. Sinuses: No sinus air-fluid levels. No mastoid effusion. Calvarium: No acute calvarial fractures or focal lesion. IMPRESSION: 1. No acute intracranial findings. 2. Mild atrophy as on prior exam
[2020-05-15] MEDS: ALBUMIN HUMAN 12.5 GM/50 ML RTUINJ IV SCH ×2 (23:05→23:31)
[2020-05-16 00:46] LABS: ARTERIAL BLOOD BASE EXCESS -2.4 mmol/L; ARTERIAL BLOOD H2CO3 1.29 mmol/L (1.05-1.35); ARTERIAL BLOOD HCO3 23.2 mmol/L (20-24); ARTERIAL BLOOD O2 SATURATION 96.4 % (94-98); ARTERIAL BLOOD PH 7.35 (7.35-7.45); ARTERIAL BLOOD PO2 89.1 mmHg (80-100); ARTERIAL BLOOD TOTAL CO2 24.5 mmol/L (23-27)
[2020-05-16] MEDS: ALBUMIN HUMAN 12.5 GM/50 ML RTUINJ IV SCH ×2 (00:54)
[2020-05-16 01:07] LABS: ARTERIAL BLOOD FIO2 35%
[2020-05-16 01:11] LABS: ALBUMIN 3.7 g/dL (3.5-5.0); ALKALINE PHOSPHATASE 50 U/L (38-126); ANION GAP 12 (5-19); ASPARTATE AMINO TRANSFERASE 25 U/L (17-59); BILIRUBIN,DIRECT 0.3 mg/dL (0.0-0.4); BILIRUBIN,TOTAL 0.9 mg/dL (0.2-1.3); BLOOD UREA NITROGEN 32 mg/dL (7-20); CALCIUM 8.9 mg/dL (8.4-10.2); CARBON DIOXIDE 30 mmol/L (22-30); CHLORIDE 99 mmol/L (98-107); GLUCOSE 149 mg/dL (75-110); POTASSIUM 4.5 mmol/L (3.6-5.0); TOTAL PROTEIN 6.5 g/dL (6.3-8.2)
[2020-05-16] MEDS: RINGERS SOLUTION,LACTATED 1,000 ML IV PRN ×2 (04:04→17:56)
[2020-05-16] MEDS ORDERED: METOPROLOL TARTRATE PF/INJ 5 MG/5 ML SDV IV ONE ×2 (04:13→04:55)
[2020-05-16] MEDS ORDERED: METOPROLOL TARTRATE PF/INJ 5 MG/5 ML SDV IV SCH (04:15)
[2020-05-16] MEDS: METOPROLOL TARTRATE PF/INJ 5 MG/5 ML SDV IV SCH ×4 (04:38→23:00)
[2020-05-16] MEDS: METHYLPREDNISOLONE INJ 40 MG/1 ML SDV IV SCH ×2 (05:20→18:16)
[2020-05-16 05:59] LABS: HEMATOCRIT 23.7 % (37.9-51.0); MEAN CORPUSCULAR HEMOGLOBIN 30.1 pg (27.0-33.4); MEAN CORPUSCULAR HGB CONC 32.3 g/dL (32.0-36.0); MEAN CORPUSCULAR VOLUME 93 fl (80-97); PLATELET COUNT 152 10^3/uL (150-450); RED BLOOD COUNT 2.55 10^6/uL (4.35-5.55); RED CELL DISTRIBUTION WIDTH 14.2 % (11.5-14.0); WHITE BLOOD COUNT 15.2 10^3/uL (4.0-10.5)
[2020-05-16 06:12] LABS: ALBUMIN 2.8 g/dL (3.5-5.0); ALKALINE PHOSPHATASE 40 U/L (38-126); ANION GAP 11 (5-19); ASPARTATE AMINO TRANSFERASE 20 U/L (17-59); BILIRUBIN,DIRECT 0.3 mg/dL (0.0-0.4); BILIRUBIN,TOTAL 0.8 mg/dL (0.2-1.3); BLOOD UREA NITROGEN 37 mg/dL (7-20); CALCIUM 8.5 mg/dL (8.4-10.2); CARBON DIOXIDE 29 mmol/L (22-30); CHLORIDE 101 mmol/L (98-107); GLUCOSE 127 mg/dL (75-110); POTASSIUM 4.2 mmol/L (3.6-5.0)
[2020-05-16 06:24] LABS: ABSOLUTE LYMPHOCYTES# (MANUAL) 0.6 10^3/uL (0.5-4.7); ABSOLUTE MONOCYTES # (MANUAL) 0.3 10^3/uL (0.1-1.4); BASOPHILS % (MANUAL) 0 % (0-2); EOSINOPHILS % (MANUAL) 0 % (0-6); INTERNATIONAL RATION (INR) 1.25; LYMPHOCYTES % (MANUAL) 4 % (13-45); MONOCYTES % (MANUAL) 2 % (3-13); PROTHROMBIN TIME 15.9 SEC (11.4-15.4); SEGMENTED NEUTROPHILS % (MAN) 94 % (42-78); TOTAL CELLS COUNTED 100
[2020-05-16 06:26] LABS: PLATELET COMMENT ADEQUATE; RBC MORPHOLOGY COMMENT NORMO-CYTIC/CHROMIC; TOXIC GRANULATION SLIGHT
[2020-05-16 06:28] LABS: HEMOGLOBIN 7.7 g/dL (13.5-17.0)
[2020-05-16] MEDS: LORAZEPAM INJ 2 MG/1 ML VIAL IV PRN ×2 (06:36→15:00)
[2020-05-16] MEDS ORDERED: RINGERS SOLUTION,LACTATED 1,000 ML IV ONE (08:26)
[2020-05-16] MEDS ORDERED: NORMAL SALINE 250 ML IV PRN ×2 (08:27)
[2020-05-16] MEDS: ENOXAPARIN SODIUM INJ 30 MG/0.3 ML DISP.SYRIN SUBCUT SCH (09:34)
--- NOTE | 2020-05-16 11:13 | RADIOLOGY REPORT (SQ) ---
EXAM DESCRIPTION: CHEST SINGLE VIEW IMAGES COMPLETED DATE/TIME: 05/16/2020 5:41 am REASON FOR STUDY: PNA COMPARISON: Previous day. NUMBER OF VIEWS: One view. TECHNIQUE: Single frontal radiographic image of the chest acquired. LIMITATIONS: None. FINDINGS: LUNGS AND PLEURA: Left lower lobe airspace disease not significantly changed. The right l bonnie is clear. MEDIASTINUM AND HEART: Stable heart size and mediastinal structures. BONY STRUCTURES: No acute findings. HARDWARE: None. OTHER: No other significant finding. IMPRESSION: STABLE APPEARANCE OF THE CHEST. TECHNICAL DOCUMENTATION: JOB ID: [id number] Reading location - IP/workstation name: [email or web address]-[facility]-
[2020-05-16] MEDS: DEXMEDETOMIDINE IN 0.9 % NACL 400 MCG/100 ML RTUPB IV PRN ×2 (11:20→20:15)
[2020-05-16] MEDS: FLUTICASONE/UMECLIDIN/VILANTER 100-62.5-25 MCG/DOSE IH SCH (15:08)
[2020-05-16 18:30] LABS: HEMATOCRIT 34.9 % (37.9-51.0); MEAN CORPUSCULAR VOLUME 91 fl (80-97); PLATELET COUNT 119 10^3/uL (150-450); RED BLOOD COUNT 3.84 10^6/uL (4.35-5.55); RED CELL DISTRIBUTION WIDTH 14.3 % (11.5-14.0); WHITE BLOOD COUNT 17.2 10^3/uL (4.0-10.5)
[2020-05-16 19:03] LABS: HEMOGLOBIN 11.5 g/dL (13.5-17.0)
[2020-05-16 19:04] LABS: ABSOLUTE LYMPHOCYTES# (MANUAL) 1.7 10^3/uL (0.5-4.7); ABSOLUTE MONOCYTES # (MANUAL) 0.5 10^3/uL (0.1-1.4); ANISOCYTOSIS SLIGHT; BASOPHILS % (MANUAL) 0 % (0-2); EOSINOPHILS % (MANUAL) 0 % (0-6); LYMPHOCYTES % (MANUAL) 10 % (13-45); MONOCYTES % (MANUAL) 3 % (3-13); SEGMENTED NEUTROPHILS % (MAN) 87 % (42-78); TOTAL CELLS COUNTED 100; TOXIC VACUOLATION PRESENT
[2020-05-16 19:05] LABS: PLATELET COMMENT DECREASED
--- NOTE | 2020-05-16 19:34 | PDOC CRITICAL CARE PROG REPORT ---
General Date:: 05/16/20 ICU Day:: 2 Hospital Day:: 2 Resuscitation Status: Full Code Events in the past 12 to 24 Hours:: 05/15/20: Patient remains confused. He attempted to self DC Villa catheter with subsequent trauma and hemorrhage. He continues to rely on BiPAP to maintain SPO2 greater than 85%. No other acute events. 05/16/2020: Patient continued to have hemorrhage from his Villa catheter. His hemoglobin decreased to 7.7 and he was transferred 2 units PRBC. Repeat CBC is pending. I reached out to [facility] where his urologist, Dr. Son is. Patient was denied transfer to the intensive care unit there because his COPD exacerbation seems to be under control and only requiring BiPAP at this time. Regarding his hematuria, the urologist medical education manager asked that we follow his hematuria for 1 more day and if he continues to show evidence of bleeding, he will accept the patient tomorrow for evaluation. Review of systems relevant to events:: ICU day: 2 Neuro: Patient remains confused. He continues to be on Precedex at 0.6. Plan: Titrate Precedex as needed. We will continue to remain conservative regarding his sedation due to his respiratory risks. Pulmonary: No current wheezing. Patient still relies on BiPAP to maintain saturation greater than 85%. IP: 16, EPAP: 8, RR: 16, FiO2 35%. CXR shows no acute infection however he does have a significantly expanded lung field consistent with significant COPD. Continue LABA/LAMA/ICS. Continue with IV steroids Solu-Cortef 100 mg IV every 12. We will begin to wean his BiPAP over the next 24 hours. Cardiovascular: Patient's rate and rhythm have remained normal. Continue to monitor given patient's risk of acute hypoxemia. Patient's baseline HCO3 is likely 33-35. Baseline CO2 is likely 55-60. Continue short acting bronchodilators as needed. Heme: Patient's H&H had a significant drop of the past 24 hours and he was transfused 2 units PRBC today. Repeat CBC is pending. I have reached out to patient's urologist at [facility] and requested transfer. Urology team there suggested that we continue current treatment for the next 24 hours and if he continues to bleed overnight, he will accept the patient tomorrow. For now, we will continue with bladder irrigation and CBC monitoring with transfusion as necessary. Renal: BUN/CR is stable. Urine output unable to be fully quantified however due to hemorrhage. Gastrointestinal: Patient is currently n.p.o. On BiPAP. I expect that he will be weaned off of BiPAP support over the next 24 to 48 hours and will be evaluated for feeding. GI prophylaxis: Continue Pepcid for stress ulcer prophylaxis. Continue Zofran as needed. : As stated above, patient with significant bleeding from his attempted to self DC his Villa catheter. As above, if bleeding continues over the next 12 hours, we will transfer the patient to [facility] who has agreed to accept him. ID: Patient currently remains afebrile. Leukocytosis likely due to Solu-Medrol. If patient has any signs of infection including fever or worsening leukocytosis, we will start antibiotics. Barriers to discharge from ICU: Patient still with significant mental status changes as well as significant hypoxemia when off of BiPAP. We will continue steroids over the next 24 to 48 hours and attempt to wean off of BiPAP support. Reason for ICU Addmission:: Risk of intubation - Medications: Medications reviewed and adjusted accordingly: Yes Physical Exam Vital Signs: Temp Pulse Resp BP Pulse Ox 97.0 F 74 16 121/64 100 05/16/20 18:00 05/16/20 18:00 05/16/20 18:00 05/16/20 18:00 05/16/20 18:00 Intake & Output 05/15/20 05/16/20 05/17/20 06:59 06:59 06:59 Intake Total 2378 77762 94894 Output Total 725 27107 02540 Balance 1653 3742 3690 Weight 70.4 kg 73.4 kg Weight/Height Weight 73.4 kg Height 5 ft 7 in General appearance: PRESENT: no acute distress Head exam: PRESENT: atraumatic, normocephalic Eye exam: PRESENT: EOMI, PERRLA Ear exam: PRESENT: normal external ear exam Mouth exam: PRESENT: dry mucosa Neck exam: PRESENT: full ROM. ABSENT: carotid bruit, JVD Respiratory exam: PRESENT: clear to auscultation thais. ABSENT: accessory muscle use Cardiovascular exam: PRESENT: RRR Pulses: PRESENT: normal carotid pulses, normal radial pulses, +1 pedal pulses bilateral Vascular exam: PRESENT: normal capillary refill GI/Abdominal exam: PRESENT: normal bowel sounds Extremities exam: ABSENT: pedal edema Musculoskeletal exam: PRESENT: normal inspection Neurological exam: PRESENT: awake, CN II-XII grossly intact Psychiatric exam: PRESENT: agitated Skin exam: PRESENT: intact, warm. ABSENT: skin tears Laboratory/Radiographs Laboratory Results: 05/16/20 17:49 05/16/20 05:40 05/15/20 05/16/20 05/16/20 21:32 00:31 00:50 WBC 8.3 RBC 3.54 L Hgb 10.6 L Hct 32.9 L MCV 93 MCH 30.0 MCHC 32.3 RDW 14.4 H Plt Count 102 L Seg Neutrophils % Carbonic Acid 1.29 HCO3/H2CO3 Ratio 17:1 ABG pH 7.35 ABG pCO2 43.0 ABG pO2 89.1 ABG HCO3 23.2 ABG O2 Saturation 96.4 ABG Base Excess -2.4 FiO2 35% Sodium 140.5 Potassium 4.5 Chloride 99 Carbon Dioxide 30 Anion Gap 12 BUN 32 H Creatinine 1.24 Est GFR ( Amer) > 60 Glucose 149 H Lactic Acid Calcium 8.9 Total Bilirubin 0.9 AST 25 Alkaline Phosphatase 50 Total Protein 6.5 Albumin 3.7 Blood Type Antibody Screen 05/16/20 05/16/20 05/16/20 00:50 05:40 05:40 WBC 15.2 H RBC 2.55 L Hgb 7.7 L D Hct 23.7 L MCV 93 MCH 30.1 MCHC 32.3 RDW 14.2 H Plt Count 152 Seg Neutrophils % Not Reportable Carbonic Acid HCO3/H2CO3 Ratio ABG pH ABG pCO2 ABG pO2 ABG HCO3 ABG O2 Saturation ABG Base Excess FiO2 Sodium 141.2 Potassium 4.2 Chloride 101 Carbon Dioxide 29 Anion Gap 11 BUN 37 H Creatinine 1.44 H Est GFR ( Amer) 57 L Glucose 127 H Lactic Acid 2.7 H Calcium 8.5 Total Bilirubin 0.8 AST 20 Alkaline Phosphatase 40 Total Protein 5.0 L Albumin 2.8 L Blood Type Antibody Screen 05/16/20 05/16/20 08:50 17:49 WBC 17.2 H RBC 3.84 L Hgb 11.5 L D Hct 34.9 L MCV 91 MCH 30.0 MCHC 33.0 RDW 14.3 H Plt Count 119 L Seg Neutrophils % Not Reportable Carbonic Acid HCO3/H2CO3 Ratio ABG pH ABG pCO2 ABG pO2 ABG HCO3 ABG O2 Saturation ABG Base Excess FiO2 Sodium Potassium Chloride Carbon Dioxide Anion Gap BUN Creatinine Est GFR ( Amer) Glucose Lactic Acid Calcium Total Bilirubin AST Alkaline Phosphatase Total Protein Albumin Blood Type O NEGATIVE Antibody Screen NEGATIVE 05/14/20 14:47 Troponin I < 0.012 Impressions: Head CT 05/15/20 00:00 IMPRESSION: 1. No acute intracranial findings. 2. Mild atrophy as on prior exam Chest X-Ray 05/16/20 05:00 IMPRESSION: STABLE APPEARANCE OF THE CHEST. All labs, radiographs, diagnostic studies and EKGs were personally reviewed: Yes In addition, reports of radiographic and diagnostic studies were read: Yes Assessment and Plan - Diagnosis (1) Acute respiratory failure with hypercapnia Is this a current diagnosis for this admission?: Yes Plan: Please see systems review for detail. Continue BiPAP Continue Trelegy LABA/LAMA/ICS Continue short acting bronchodilators as needed. Continue IV steroids. (2) COPD exacerbation Is this a current diagnosis for this admission?: Yes Plan: As above, Continue BiPAP support, long and short acting bronchodilators as well as IV steroids. Monitor closely for signs of pneumonia. (3) Hematuria Qualifiers: Hematuria type: unspecified type Qualified Code(s): R31.9 - Hematuria, unspecified Is this a current diagnosis for this admission?: Yes Plan: Gross hematuria due to traumatic attempt to self DC Villa. Please see systems review for details. We will continue bladder irrigation for now. Check CBC post blood transfusion. Transfuse as needed. If patient continues to bleed by tomorrow, we will transfer him to his urologist in [facility] who is aware of his situation. Critical Time Critical Time (minutes): 68 Level of Care: ICU Anticipated discharge: Home Anticipated DC Timeframe: within 72 hours -: 1. The care of a critical patient is a dynamic process. This note is a repr esentative synopsis but static in nature. The timeframe for treatments given in order is not necessarily the actual time these treatments may have been done. 2. This patient requires critical care secondary to ongoing requirements for therapy not offered or safe outside the critical care environment. Transfer to a lower level of care will result in altered life or limb morbidity and mortality. 3. Multidisciplinary rounds completed. 4. ABCDE bundle addressed.
[2020-05-16] MEDS ORDERED: MORPHINE SULFATE 10 MG/ML INJ ONE (21:45)
[2020-05-16] MEDS: MORPHINE SULFATE 10 MG/ML INJ IV PRN (21:52)
[2020-05-17] MEDS: MORPHINE SULFATE 10 MG/ML INJ IV PRN ×2 (02:30→20:27)
[2020-05-17] MEDS: DEXMEDETOMIDINE IN 0.9 % NACL 400 MCG/100 ML RTUPB IV PRN ×3 (03:45→21:07)
[2020-05-17] MEDS: METHYLPREDNISOLONE INJ 40 MG/1 ML SDV IV SCH ×2 (05:43→18:24)
[2020-05-17] MEDS: METOPROLOL TARTRATE PF/INJ 5 MG/5 ML SDV IV SCH ×4 (05:43→23:11)
--- NOTE | 2020-05-17 06:55 | RADIOLOGY REPORT (SQ) ---
EXAM DESCRIPTION: CHEST SINGLE VIEW IMAGES COMPLETED DATE/TIME: 05/17/2020 5:49 am REASON FOR STUDY: PNA COMPARISON: 05/14/2020, 05/15/2020, 05/16/2020 EXAM PARAMETERS: NUMBER OF VIEWS: One view. TECHNIQUE: Single frontal radiographic view of the chest acquired. RADIATION DOSE: NA LIMITATIONS: None. FINDINGS: LUNGS AND PLEURA: Persistent left pleural effusion, unchanged. Lungs are hyperinflated from obstructive lung disease. No pneumothorax. MEDIASTINUM AND HILAR STRUCTURES: No masses. Contour normal. HEART AND VASCULAR STRUCTURES: Heart normal in size. Normal vasculature. BONES: No acute findings. HARDWARE: None in the chest. OTHER: No other significant finding. IMPRESSION: No change from yesterday TECHNICAL DOCUMENTATION: JOB ID: [id number] 2010 [email or web address]- All Rights Reserved Reading location - IP/workstation name: [email or web address]
[2020-05-17] MEDS: RINGERS SOLUTION,LACTATED 1,000 ML IV PRN ×2 (07:03→21:04)
[2020-05-17 07:07] LABS: ARTERIAL BLOOD BASE EXCESS 0.4 mmol/L; ARTERIAL BLOOD H2CO3 1.29 mmol/L (1.05-1.35); ARTERIAL BLOOD HCO3 25.4 mmol/L (20-24); ARTERIAL BLOOD O2 SATURATION 94.6 % (94-98); ARTERIAL BLOOD PCO2 42.8 mmHg (35-45); ARTERIAL BLOOD PH 7.39 (7.35-7.45); ARTERIAL BLOOD TOTAL CO2 26.8 mmol/L (23-27)
[2020-05-17 07:15] LABS: ARTERIAL BLOOD FIO2 30%
[2020-05-17 08:21] LABS: HEMATOCRIT 30.6 % (37.9-51.0); HEMOGLOBIN 10.2 g/dL (13.5-17.0); MEAN CORPUSCULAR HEMOGLOBIN 30.4 pg (27.0-33.4); MEAN CORPUSCULAR HGB CONC 33.2 g/dL (32.0-36.0); MEAN CORPUSCULAR VOLUME 92 fl (80-97); RED BLOOD COUNT 3.35 10^6/uL (4.35-5.55); RED CELL DISTRIBUTION WIDTH 14.8 % (11.5-14.0)
[2020-05-17 08:32] LABS: ALBUMIN 2.6 g/dL (3.5-5.0); ALKALINE PHOSPHATASE 40 U/L (38-126); ANION GAP 7 (5-19); ASPARTATE AMINO TRANSFERASE 24 U/L (17-59); BILIRUBIN,DIRECT 0.3 mg/dL (0.0-0.4); BILIRUBIN,TOTAL 0.9 mg/dL (0.2-1.3); BLOOD UREA NITROGEN 48 mg/dL (7-20); CALCIUM 8.4 mg/dL (8.4-10.2); CARBON DIOXIDE 29 mmol/L (22-30); CHLORIDE 103 mmol/L (98-107); GLUCOSE 127 mg/dL (75-110); POTASSIUM 4.5 mmol/L (3.6-5.0)
[2020-05-17 08:42] LABS: PLATELET COUNT 94 10^3/uL (150-450)
[2020-05-17 08:45] LABS: ABSOLUTE LYMPHOCYTES# (MANUAL) 0.7 10^3/uL (0.5-4.7); ABSOLUTE MONOCYTES # (MANUAL) 0.1 10^3/uL (0.1-1.4); BASOPHILS % (MANUAL) 0 % (0-2); EOSINOPHILS % (MANUAL) 0 % (0-6); LYMPHOCYTES % (MANUAL) 3 % (13-45); MONOCYTES % (MANUAL) 1 % (3-13); SEGMENTED NEUTROPHILS % (MAN) 94 % (42-78); TOTAL CELLS COUNTED 100
[2020-05-17 08:46] LABS: ANISOCYTOSIS SLIGHT; OVALOCYTES 1+; PLATELET COMMENT DECREASED; POIKILOCYTOSIS 1+
[2020-05-17] MEDS ORDERED: METOPROLOL TARTRATE PF/INJ 5 MG/5 ML SDV IV ONE (09:01)
[2020-05-17] MEDS: ENOXAPARIN SODIUM INJ 30 MG/0.3 ML DISP.SYRIN SUBCUT SCH (10:00)
[2020-05-17] MEDS: LEVOFLOXACIN 500 MG/D5W RTU 500 MG/100 ML RTUPB IV SCH (12:23)
[2020-05-17] MEDS: FAMOTIDINE INJ/PF 20 MG/2 ML SDV IV SCH (12:34)
[2020-05-17 12:35] LABS: ANION GAP 10 (5-19); BLOOD UREA NITROGEN 47 mg/dL (7-20); CALCIUM 8.8 mg/dL (8.4-10.2); CARBON DIOXIDE 29 mmol/L (22-30); CHLORIDE 102 mmol/L (98-107); GLUCOSE 118 mg/dL (75-110); POTASSIUM 4.4 mmol/L (3.6-5.0)
[2020-05-17] MEDS: FLUTICASONE/UMECLIDIN/VILANTER 100-62.5-25 MCG/DOSE IH SCH (13:33)
--- NOTE | 2020-05-17 14:44 | PDOC CRITICAL CARE PROG REPORT ---
General Date:: 05/17/20 ICU Day:: 3 Hospital Day:: 3 Resuscitation Status: Full Code Events in the past 12 to 24 Hours:: 05/15/20: Patient remains confused. He attempted to self DC Villa catheter with subsequent trauma and hemorrhage. He continues to rely on BiPAP to maintain SPO2 greater than 85%. No other acute events. 05/16/2020: Patient continued to have hemorrhage from his Villa catheter. His hemoglobin decreased to 7.7 and he was transferred 2 units PRBC. Repeat CBC is pending. I reached out to [facility] where his urologist, Dr. Son is. Patient was denied transfer to the intensive care unit there because his COPD exacerbation seems to be under control and only requiring BiPAP at this time. Regarding his hematuria, the urologist business objects consultant asked that we follow his hematuria for 1 more day and if he continues to show evidence of bleeding, he will accept the patient tomorrow for evaluation. 06/16/20: Fortunately, patient's hematuria has lightened. His hemoglobin did come down to 10.2 from 11.5, repeat CBC is pending. He is also improving from a respiratory standpoint. He was weaned off of BiPAP support and seems to be breathing comfortably. He has not been febrile but has had an increased leukocytosis. We have started antibiotics. Review of systems relevant to events:: ICU day: 3 Neuro: Patient remains confused but easily redirected. Precedex has been held. Plan: We will continue to remain conservative regarding his sedation due to his respiratory risks. Pulmonary: No current wheezing. Patient weaned off of BiPAP support and seems to be breathing comfortably. CXR shows no acute infection however he does have a significantly expanded lung field consistent with significant COPD. Continue LABA/LAMA/ICS. Continue with IV steroids Solu-Cortef 100 mg IV every 12. Continue short acting bronchodilators as needed. Cardiovascular: Patient's rate and rhythm have remained normal. Heme: Repeat CBC is pending. Follow-up result to see need for repeat transfusion. Hematuria seems to be subsiding. Renal: BUN/CR is stable. Urine output unable to be fully quantified however due to bladder irrigation. Gastrointestinal: Patient is currently n.p.o. BiPAP discontinued this morning. Will attempt swallow study this evening. GI prophylaxis: Continue Pepcid for stress ulcer prophylaxis. Continue Zofran as needed. : As stated above, patient with significant bleeding from his attempted to self DC his Villa catheter. As above, if bleeding continues over the next 12 hours, we will transfer the patient to [facility] who has agreed to accept him. ID: Levofloxacin started due to increased leukocytosis. We will continue to monitor closely. I will begin weaning steroids over the next several days. Barriers to discharge from ICU: Patient is doing well off of BiPAP so far. If he continues to improve over the next 12 to 24 hours, we will look to transfer to the medicine service tomorrow. Reason for ICU Addmission:: Risk of intubation - Medications: Medications reviewed and adjusted accordingly: Yes Physical Exam Vital Signs: Temp Pulse Resp BP Pulse Ox 98.6 F 109 H 20 109/82 99 05/17/20 12:00 05/17/20 12:00 05/17/20 12:00 05/17/20 12:00 05/17/20 12:00 Intake & Output 05/16/20 05/17/20 05/18/20 06:59 06:59 06:59 Intake Total 19751 13439 55779 Output Total 72026 46108 73234 Balance 3742 3374 4114 Weight 73.4 kg 75 kg Weight/Height Weight 75 kg Height 5 ft 7 in General appearance: PRESENT: no acute distress, well-developed Head exam: PRESENT: atraumatic, normocephalic Eye exam: PRESENT: EOMI, PERRLA Ear exam: PRESENT: normal external ear exam Mouth exam: PRESENT: dry mucosa Neck exam: PRESENT: full ROM. ABSENT: JVD, tracheal deviation Respiratory exam: PRESENT: clear to auscultation thais, prolonged expiratory phas. ABSENT: accessory muscle use Cardiovascular exam: PRESENT: RRR, +S1, +S2 Pulses: PRESENT: normal carotid pulses, normal radial pulses, +1 pedal pulses bilateral Vascular exam: PRESENT: normal capillary refill, pallor GI/Abdominal exam: PRESENT: soft. ABSENT: tenderness Extremities exam: PRESENT: full ROM. ABSENT: calf tenderness Musculoskeletal exam: PRESENT: full ROM, normal inspection Neurological exam: PRESENT: alert, altered, awake, oriented to person, oriented to place, oriented to time, oriented to situation, CN II-XII grossly intact Psychiatric exam: PRESENT: appropriate affect Focused psych exam: PRESENT: flight of ideas Skin exam: PRESENT: intact, pallor, warm. ABSENT: skin tears Laboratory/Radiographs Laboratory Results: 05/17/20 08:00 05/17/20 12:00 05/16/20 05/17/20 05/17/20 17:49 06:53 08:00 WBC 17.2 H RBC 3.84 L Hgb 11.5 L D Hct 34.9 L MCV 91 MCH 30.0 MCHC 33.0 RDW 14.3 H Plt Count 119 L Seg Neutrophils % Not Reportable Carbonic Acid 1.29 HCO3/H2CO3 Ratio 19:1 ABG pH 7.39 ABG pCO2 42.8 ABG pO2 73.0 L ABG HCO3 25.4 H ABG O2 Saturation 94.6 ABG Base Excess 0.4 FiO2 30% Sodium 138.6 Potassium 4.5 Chloride 103 Carbon Dioxide 29 Anion Gap 7 BUN 48 H Creatinine 1.22 Est GFR ( Amer) > 60 Est GFR (Non-Af Amer) Glucose 127 H Calcium 8.4 Magnesium Total Bilirubin 0.9 AST 24 Alkaline Phosphatase 40 Total Protein 5.0 L Albumin 2.6 L 05/17/20 05/17/20 05/17/20 08:00 08:00 12:00 WBC 13.0 H RBC 3.35 L Hgb 10.2 L Hct 30.6 L MCV 92 MCH 30.4 MCHC 33.2 RDW 14.8 H Plt Count 94 L Seg Neutrophils % Not Reportable Carbonic Acid HCO3/H2CO3 Ratio ABG pH ABG pCO2 ABG pO2 ABG HCO3 ABG O2 Saturation ABG Base Excess FiO2 Sodium Cancelled 141.4 Potassium Cancelled 4.4 Chloride Cancelled 102 Carbon Dioxide Cancelled 29 Anion Gap Cancelled 10 BUN Cancelled 47 H Creatinine Cancelled 1.29 H Est GFR ( Amer) Cancelled > 60 Est GFR (Non-Af Amer) Cancelled Glucose Cancelled 118 H Calcium Cancelled 8.8 Magnesium 1.5 L Total Bilirubin AST Alkaline Phosphatase Total Protein Albumin 05/14/20 21:34 Catheterized Urine Urine Culture - Final Staph Coagulase Negative 05/14/20 14:47 Troponin I < 0.012 Impressions: Head CT 05/15/20 00:00 IMPRESSION: 1. No acute intracranial findings. 2. Mild atrophy as on prior exam Chest X-Ray 05/17/20 05:00 IMPRESSION: No change from yesterday All labs, radiographs, diagnostic studies and EKGs were personally reviewed: Yes In addition, reports of radiographic and diagnostic studies were read: Yes Assessment and Plan - Diagnosis (1) Acute respiratory failure with hypercapnia Is this a current diagnosis for this admission?: Yes Plan: Please see systems review for detail. Continue to monitor off of BiPap. Continue Trelegy LABA/LAMA/ICS Continue short acting bronchodilators as needed. Continue IV steroids. (2) COPD exacerbation Is this a current diagnosis for this admission?: Yes Plan: As above, Continue long and short acting bronchodilators as well as IV steroids. Monitor closely for signs of pneumonia. (3) Hematuria Qualifiers: Hematuria type: unspecified type Qualified Code(s): R31.9 - Hematuria, unspecified Is this a current diagnosis for this admission?: Yes Plan: Gross hematuria due to traumatic attempt to self DC Villa. Please see systems review for details. Urine now a more normal color. Bleeding seems to have subsided. Continue to monitor. Critical Time Critical Time (minutes): 45 Level of Care: ICU Anticipated discharge: Home Anticipated DC Timeframe: within 36 hours -: 1. The care of a critical patient is a dynamic process. This note is a sales representative business courses synopsis but static in nature. The timeframe for treatments given in order is not necessarily the actual time these treatments may have been done. 2. This patient requires critical care secondary to ongoing requirements for therapy not offered or safe outside the critical care environment. Transfer to a lower level of care will result in altered life or limb morbidity and mortality. 3. Multidisciplinary rounds completed. 4. ABCDE bundle addressed.
[2020-05-17] MEDS: LORAZEPAM INJ 2 MG/1 ML VIAL IV PRN (19:51)
[2020-05-18] MEDS: DEXMEDETOMIDINE IN 0.9 % NACL 400 MCG/100 ML RTUPB IV PRN ×4 (02:58→21:15)
[2020-05-18] MEDS: METHYLPREDNISOLONE INJ 40 MG/1 ML SDV IV SCH ×2 (05:06→17:23)
[2020-05-18] MEDS: METOPROLOL TARTRATE PF/INJ 5 MG/5 ML SDV IV SCH ×4 (05:06→23:56)
[2020-05-18 06:29] LABS: HEMATOCRIT 28.4 % (37.9-51.0); HEMOGLOBIN 9.3 g/dL (13.5-17.0); MEAN CORPUSCULAR HEMOGLOBIN 30.2 pg (27.0-33.4); MEAN CORPUSCULAR HGB CONC 32.9 g/dL (32.0-36.0); MEAN CORPUSCULAR VOLUME 92 fl (80-97); RED BLOOD COUNT 3.09 10^6/uL (4.35-5.55); RED CELL DISTRIBUTION WIDTH 14.9 % (11.5-14.0); WHITE BLOOD COUNT 11.9 10^3/uL (4.0-10.5)
[2020-05-18 06:52] LABS: ANION GAP 6 (5-19); BLOOD UREA NITROGEN 46 mg/dL (7-20); CALCIUM 8.3 mg/dL (8.4-10.2); CARBON DIOXIDE 29 mmol/L (22-30); CHLORIDE 104 mmol/L (98-107); GLUCOSE 113 mg/dL (75-110); POTASSIUM 4.2 mmol/L (3.6-5.0)
--- NOTE | 2020-05-18 07:13 | RADIOLOGY REPORT (SQ) ---
EXAM DESCRIPTION: CHEST SINGLE VIEW IMAGES COMPLETED DATE/TIME: 05/18/2020 6:49 am REASON FOR STUDY: Respiratory Failure COMPARISON: Multiple since 05/14/2020 EXAM PARAMETERS: NUMBER OF VIEWS: One view. TECHNIQUE: Single frontal radiographic view of the chest acquired. RADIATION DOSE: NA LIMITATIONS: None. FINDINGS: LUNGS AND PLEURA: Persistent left left pleural effusion unchanged. Stable increased inter stitial markings over the left lung. Lungs are hyperinflated from obstructive disease No right pleural effusion. No pneumothorax. MEDIASTINUM AND HILAR STRUCTURES: No masses. Contour normal. HEART AND VASCULAR STRUCTURES: No cardiomegaly BONES: No acute findings. HARDWARE: None in the chest. OTHER: No other significant finding. IMPRESSION: No change from yesterday TECHNICAL DOCUMENTATION: JOB ID: [id number] 2010 [email or web address]- All Rights Reserved Reading location - IP/workstation name: [email or web address]
[2020-05-18 07:26] LABS: PLATELET COUNT 94 10^3/uL (150-450)
[2020-05-18] MEDS: ENOXAPARIN SODIUM INJ 30 MG/0.3 ML DISP.SYRIN SUBCUT SCH (09:23)
[2020-05-18] MEDS: FAMOTIDINE INJ/PF 20 MG/2 ML SDV IV SCH (09:42)
[2020-05-18] MEDS: LEVOFLOXACIN 500 MG/D5W RTU 500 MG/100 ML RTUPB IV SCH (09:44)
[2020-05-18] MEDS: ALPRAZOLAM 0.5 MG TABLET PO SCH ×3 (11:54→21:31)
[2020-05-18] MEDS: FLUTICASONE/UMECLIDIN/VILANTER 100-62.5-25 MCG/DOSE IH SCH (12:03)
[2020-05-18] MEDS: RINGERS SOLUTION,LACTATED 1,000 ML IV PRN (12:14)
--- NOTE | 2020-05-18 12:31 | PDOC CRITICAL CARE PROG REPORT ---
General Date:: 05/18/20 ICU Day:: 4 Hospital Day:: 4 Resuscitation Status: Full Code Events in the past 12 to 24 Hours:: 05/15/20: Patient remains confused. He attempted to self DC Villa catheter with subsequent trauma and hemorrhage. He continues to rely on BiPAP to maintain SPO2 greater than 85%. No other acute events. 05/16/2020: Patient continued to have hemorrhage from his Villa catheter. His hemoglobin decreased to 7.7 and he was transferred 2 units PRBC. Repeat CBC is pending. I reached out to [facility] where his urologist, Dr. Son is. Patient was denied transfer to the intensive care unit there because his COPD exacerbation seems to be under control and only requiring BiPAP at this time. Regarding his hematuria, the urologist instructional support technician asked that we follow his hematuria for 1 more day and if he continues to show evidence of bleeding, he will accept the patient tomorrow for evaluation. 06/16/20: Fortunately, patient's hematuria has lightened. His hemoglobin did come down to 10.2 from 11.5, repeat CBC is pending. He is also improving from a respiratory standpoint. He was weaned off of BiPAP support and seems to be breathing comfortably. He has not been febrile but has had an increased leukocytosis. We have started antibiotics. 06/17/2020: Overnight, patient's urine output diminished. Exam this morning showed a distended abdomen. A large clot was pulled from his Villa catheter after irrigation. Unfortunately, patient's urine output is once again bloody. We will follow his H&H closely. He had a decrease in hemoglobin today to 9.3. We will repeat CBC this afternoon. Patient is otherwise doing very well from a pulmonary standpoint and would be appropriate for transfer out of the ICU. We will continue to hold him here to monitor his hematuria. Review of systems relevant to events:: ICU day: 4 Neuro: Patient remains confused but easily redirected. Precedex is being weaned and Xanax, which she takes at home, was added to his regimen. Plan: We will continue to remain conservative regarding his sedation due to his respiratory risks. Pulmonary: No current wheezing. Patient weaned off of BiPAP support and seems to be breathing comfortably. CXR shows no acute infection however he does have a significantly expanded lung field consistent with significant COPD. Continue LABA/LAMA/ICS. We began weaning steroids today to Solu-Medrol 20 mg every 12. Continue short acting bronchodilators as needed. Cardiovascular: Patient's rate and rhythm have remained normal. Heme: Overall, his hematuria seems to have improved. Since this morning, he has had some blood return. CBC pending for this afternoon. Renal: BUN/CR is stable. Urine output unable to be fully quantified however due to bladder irrigation. Gastrointestinal: Patient is able to tolerate p.o. We will advance diet as tolerated. GI prophylaxis: Continue Pepcid for stress ulcer prophylaxis. Continue Zofran as needed. : As stated above, patient with significant bleeding from his attempted to self DC his Villa catheter. As above, if bleeding continues over the next 12 hours, we will transfer the patient to [facility]. ID: WBCs seems to have improved following levofloxacin administration. CBC pending for this afternoon. We will also weaning his steroids. Barriers to discharge from ICU: Patient is recovering well from his COPD exacerbation. If no significant pneumaturia over the next 12 to 24 hours, we will transfer him to the medicine service. Reason for ICU Addmission:: Risk of intubation - Medications: Medications reviewed and adjusted accordingly: Yes Physical Exam Vital Signs: Temp Pulse Resp BP Pulse Ox 92.3 F L 89 17 103/68 96 05/18/20 08:00 05/18/20 08:00 05/18/20 08:00 05/18/20 08:00 05/18/20 09:45 Intake & Output 05/17/20 05/18/20 05/19/20 06:59 06:59 06:59 Intake Total 85885 57792 153 Output Total 20335 78963 Balance 7431 8472 153 Weight 75 kg 75.3 kg Weight/Height Weight 75.3 kg Height 5 ft 7 in General appearance: PRESENT: no acute distress, well-developed Head exam: PRESENT: atraumatic, normocephalic Eye exam: PRESENT: EOMI Ear exam: PRESENT: normal external ear exam Mouth exam: PRESENT: moist Neck exam: PRESENT: full ROM. ABSENT: JVD, tenderness Respiratory exam: PRESENT: clear to auscultation thais, unlabored. ABSENT: accessory muscle use, crackles, rales, rhonchi, tachypnea, wheezes Cardiovascular exam: PRESENT: RRR Pulses: PRESENT: normal radial pulses, normal femoral pulses, +1 pedal pulses bilateral Vascular exam: PRESENT: normal capillary refill, pallor GI/Abdominal exam: PRESENT: normal bowel sounds Gentrourinary exam: PRESENT: indwelling catheter. ABSENT: scrotal swelling, urethral discharge Extremities exam: PRESENT: full ROM. ABSENT: joint swelling, pedal edema Musculoskeletal exam: PRESENT: full ROM, normal inspection. ABSENT: tenderness Neurological exam: PRESENT: alert, altered, awake, oriented to person, oriented to place, CN II-XII grossly intact Psychiatric exam: PRESENT: appropriate affect Skin exam: PRESENT: dry, intact, pallor. ABSENT: skin tears Laboratory/Radiographs Laboratory Results: 05/18/20 05:47 05/18/20 05:47 05/17/20 05/18/20 05/18/20 12:00 05:47 05:47 WBC 11.9 H RBC 3.09 L Hgb 9.3 L Hct 28.4 L MCV 92 MCH 30.2 MCHC 32.9 RDW 14.9 H Plt Count 94 L Sodium 141.4 139.0 Potassium 4.4 4.2 Chloride 102 104 Carbon Dioxide 29 29 Anion Gap 10 6 BUN 47 H 46 H Creatinine 1.29 H 1.16 Est GFR ( Amer) > 60 > 60 Glucose 118 H 113 H Calcium 8.8 8.3 L 05/14/20 21:34 Catheterized Urine Urine Culture - Final Staph Coagulase Negative 05/14/20 14:47 Troponin I < 0.012 Impressions: Head CT 05/15/20 00:00 IMPRESSION: 1. No acute intracranial findings. 2. Mild atrophy as on prior exam Chest X-Ray 05/18/20 06:00 IMPRESSION: No change from yesterday All labs, radiographs, diagnostic studies and EKGs were personally reviewed: Yes In addition, reports of radiographic and diagnostic studies were read: Yes Assessment and Plan - Diagnosis (1) Acute respiratory failure with hypercapnia Is this a current diagnosis for this admission?: Yes Plan: Please see systems review for detail. Patient no longer requiring BiPAP. Continue Trelegy LABA/LAMA/ICS Continue short acting bronchodilators as needed. Begin weaning IV steroids. (2) COPD exacerbation Is this a current diagnosis for this admission?: Yes Plan: As above, Continue long and short acting bronchodilators as well as IV steroids. Appropriate for transfer to floor from a pulmonary standpoint. (3) Hematuria Qualifiers: Hematuria type: unspecified type Qualified Code(s): R31.9 - Hematuria, unspecified Is this a current diagnosis for this admission?: Yes Plan: Gross hematuria due to traumatic attempt to self DC Villa. Please see systems review for details. Overall, patient's hematuria has improved. After removing a clot from his Villa catheter, it appears as though some bleeding has continued. We will monitor CBC for evidence of blood loss and transfuse as needed. I expect that the bleeding will subside over the next 12 to 24 hours. Continue to monitor. Critical Time Critical Time (minutes): 62 Level of Care: ICU Anticipated discharge: Home Anticipated DC Timeframe: within 48 hours -: 1. The care of a critical patient is a dynamic process. This note is a maintenance representative synopsis but static in nature. The timeframe for treatments given in order is not necessarily the actual time these treatments may have been done. 2. This patient requires critical care secondary to ongoing requirements for therapy not offered or safe outside the critical care environment. Transfer to a lower level of care will result in altered life or limb morbidity and mortality. 3. Multidisciplinary rounds completed. 4. ABCDE bundle addressed.
[2020-05-18 15:49] LABS: HEMATOCRIT 29.5 % (37.9-51.0); HEMOGLOBIN 10.1 g/dL (13.5-17.0); MEAN CORPUSCULAR HEMOGLOBIN 31.1 pg (27.0-33.4); MEAN CORPUSCULAR HGB CONC 34.3 g/dL (32.0-36.0); MEAN CORPUSCULAR VOLUME 91 fl (80-97); PLATELET COUNT 115 10^3/uL (150-450); RED BLOOD COUNT 3.25 10^6/uL (4.35-5.55); RED CELL DISTRIBUTION WIDTH 14.8 % (11.5-14.0); WHITE BLOOD COUNT 16.2 10^3/uL (4.0-10.5)
[2020-05-18] MEDS: LORAZEPAM INJ 2 MG/1 ML VIAL IV PRN (18:00)
[2020-05-18] MEDS ORDERED: HALOPERIDOL LACTATE INJ 5 MG/1 ML VIAL IV ONE (19:25)
[2020-05-18] MEDS: MORPHINE SULFATE 10 MG/ML INJ IV PRN (21:59)
[2020-05-19] MEDS: DEXMEDETOMIDINE IN 0.9 % NACL 400 MCG/100 ML RTUPB IV PRN ×3 (01:01→11:05)
[2020-05-19] MEDS: RINGERS SOLUTION,LACTATED 1,000 ML IV PRN ×2 (01:01→14:25)
[2020-05-19] MEDS: LORAZEPAM INJ 2 MG/1 ML VIAL IV PRN ×2 (02:54→17:56)
[2020-05-19] MEDS: METOPROLOL TARTRATE PF/INJ 5 MG/5 ML SDV IV SCH ×4 (05:02→23:57)
[2020-05-19] MEDS: METHYLPREDNISOLONE INJ 40 MG/1 ML SDV IV SCH ×2 (05:03→17:19)
[2020-05-19 05:22] LABS: HEMATOCRIT 28.1 % (37.9-51.0); HEMOGLOBIN 9.4 g/dL (13.5-17.0); MEAN CORPUSCULAR HEMOGLOBIN 30.7 pg (27.0-33.4); MEAN CORPUSCULAR HGB CONC 33.3 g/dL (32.0-36.0); MEAN CORPUSCULAR VOLUME 92 fl (80-97); PLATELET COUNT 103 10^3/uL (150-450); RED BLOOD COUNT 3.05 10^6/uL (4.35-5.55); RED CELL DISTRIBUTION WIDTH 15.1 % (11.5-14.0); WHITE BLOOD COUNT 12.2 10^3/uL (4.0-10.5)
[2020-05-19 05:42] LABS: ANION GAP 10 (5-19); BLOOD UREA NITROGEN 42 mg/dL (7-20); CALCIUM 8.5 mg/dL (8.4-10.2); CARBON DIOXIDE 25 mmol/L (22-30); CHLORIDE 105 mmol/L (98-107); GLUCOSE 116 mg/dL (75-110); POTASSIUM 4.5 mmol/L (3.6-5.0)
--- NOTE | 2020-05-19 07:37 | RADIOLOGY REPORT (SQ) ---
EXAM DESCRIPTION: CHEST SINGLE VIEW IMAGES COMPLETED DATE/TIME: 05/19/2020 6:45 am REASON FOR STUDY: Respiratory Failure COMPARISON: Multiple from 05/15/2020 EXAM PARAMETERS: NUMBER OF VIEWS: One view. TECHNIQUE: Single frontal radiographic view of the chest acquired. RADIATION DOSE: NA LIMITATIONS: None. FINDINGS: LUNGS AND PLEURA: No change in left pleural effusion. No dense consolidation worrisome for pneumonia. Lungs are hyperinflated No pneumothorax MEDIASTINUM AND HILAR STRUCTURES: No masses. Contour normal. HEART AND VASCULAR STRUCTURES: No cardiomegaly BONES: No acute findings. HARDWARE: None in the chest. OTHER: No other significant finding. IMPRESSION: No change yesterday TECHNICAL DOCUMENTATION: JOB ID: [id number] 2010 [employer]- All Rights Reserved Reading location - IP/workstation name: [id number]
--- NOTE | 2020-05-19 09:29 | PDOC CRITICAL CARE PROG REPORT ---
General Date:: 05/19/20 ICU Day:: 5 Hospital Day:: 5 Resuscitation Status: Full Code Events in the past 12 to 24 Hours:: Off bipap but still needing Precedex to control him. May be having benzo withrawal. May 18. Clot dislodged in 3-way pettit. May 17. Risk of intubation abated. Doing well on bipap. May 16. Transfused 2U PBBCs. Pettit bleeding, 3-way inserted for bladder irrigation. Review of systems relevant to events:: Neurologic, ., Pulmonary. Reason for ICU Addmission:: Delirium, need for Precedex. - Medications: Medications reviewed and adjusted accordingly: Yes Vasopressors:: None Sedation:: Precedex. Physical Exam Vital Signs: Temp Pulse Resp BP Pulse Ox 93.3 F L 92 14 123/84 94 05/19/20 08:00 05/19/20 08:00 05/19/20 08:00 05/19/20 08:00 05/19/20 08:00 Intake & Output 05/18/20 05/19/20 05/20/20 06:59 06:59 06:59 Intake Total 07037 34540 2 Output Total 60084 96909 Balance 4742 -537 2 Weight 75.3 kg 76.3 kg Weight/Height Weight 76.3 kg Height 5 ft 7 in General appearance: PRESENT: no acute distress, well-developed, well-nourished Head exam: PRESENT: atraumatic, normocephalic Eye exam: PRESENT: conjunctiva pink, EOMI, PERRLA. ABSENT: scleral icterus Ear exam: PRESENT: normal external ear exam Mouth exam: PRESENT: moist, tongue midline Respiratory exam: PRESENT: clear to auscultation thais, decreased breath sounds, other - Off bipap this AM.. ABSENT: rales, rhonchi, wheezes Cardiovascular exam: PRESENT: RRR. ABSENT: diastolic murmur, rubs, systolic murmur GI/Abdominal exam: PRESENT: normal bowel sounds, soft. ABSENT: distended, guarding, mass, organolmegaly, rebound, tenderness Rectal exam: PRESENT: deferred Gentrourinary exam: PRESENT: indwelling catheter Extremities exam: PRESENT: full ROM. ABSENT: calf tenderness, clubbing, pedal edema Musculoskeletal exam: PRESENT: normal inspection Neurological exam: PRESENT: altered, awake Skin exam: PRESENT: dry, intact, skin tears - On arms, warm. ABSENT: cyanosis, rash Laboratory/Radiographs Laboratory Results: 05/19/20 04:48 05/19/20 04:48 05/18/20 05/19/20 05/19/20 15:28 04:48 04:48 WBC 16.2 H 12.2 H RBC 3.25 L 3.05 L Hgb 10.1 L 9.4 L Hct 29.5 L 28.1 L MCV 91 92 MCH 31.1 30.7 MCHC 34.3 33.3 RDW 14.8 H 15.1 H Plt Count 115 L 103 L Sodium 140.3 Potassium 4.5 Chloride 105 Carbon Dioxide 25 Anion Gap 10 BUN 42 H Creatinine 1.07 Est GFR ( Amer) > 60 Glucose 116 H Calcium 8.5 05/14/20 14:47 Troponin I < 0.012 Impressions: Head CT 05/15/20 00:00 IMPRESSION: 1. No acute intracranial findings. 2. Mild atrophy as on prior exam Chest X-Ray 05/19/20 06:00 IMPRESSION: No change yesterday All labs, radiographs, diagnostic studies and EKGs were personally reviewed: Yes In addition, reports of radiographic and diagnostic studies were read: Yes Assessment and Plan - Diagnosis (1) Acute respiratory failure with hypercapnia Is this a current diagnosis for this admission?: Yes Plan: Seeems to be improved. Off bipap and doing well thus far this morning. (2) COPD (chronic obstructive pulmonary disease) Qualifiers: COPD type: COPD with acute exacerbation Qualified Code(s): J44.1 - Chronic obstructive pulmonary disease with (acute) exacerbation Is this a current diagnosis for this admission?: Yes Plan: No active wheezing or exacerbation. (3) Pneumonia Qualifiers: Pneumonia type: aspiration pneumonia Laterality: bilateral Lung location: lower lobe of lung Is this a current diagnosis for this admission?: Yes Plan: CXR improved. Small L effusion. (4) Encephalopathy acute Is this a current diagnosis for this admission?: Yes Plan: Worsened by baseline dementia. He has been refusing PO ativan, a home medicatin. This could partially explain his behavior from a benzo WD picture. IV ativan ordered if he does not take PO. I would not downgrade until he is off precedex. Plan Summary: See if IV and PO ativan helps his MS. Ativan is not recommended for delirium but can help in benzodiazapine WD. Critical Time Critical Time (minutes): 35 Level of Care: ICU Anticipated discharge: Home Anticipated DC Timeframe: Other -: 1. The care of a critical patient is a dynamic process. This note is a represe ntative synopsis but static in nature. The timeframe for treatments given in order is not necessarily the actual time these treatments may have been done. 2. This patient requires critical care secondary to ongoing requirements for therapy not offered or safe outside the critical care environment. Transfer to a lower level of care will result in altered life or limb morbidity and mortality. 3. Multidisciplinary rounds completed. 4. ABCDE bundle addressed.
[2020-05-19] MEDS: FAMOTIDINE INJ/PF 20 MG/2 ML SDV IV SCH (11:08)
[2020-05-19] MEDS: LEVOFLOXACIN 500 MG/D5W RTU 500 MG/100 ML RTUPB IV SCH (11:08)
[2020-05-19] MEDS: ENOXAPARIN SODIUM INJ 30 MG/0.3 ML DISP.SYRIN SUBCUT SCH (11:09)
[2020-05-19] MEDS: ALPRAZOLAM 0.5 MG TABLET PO SCH ×2 (11:12→21:13)
[2020-05-19] MEDS: FLUTICASONE/UMECLIDIN/VILANTER 100-62.5-25 MCG/DOSE IH SCH (11:13)
[2020-05-19] MEDS ORDERED: QUETIAPINE FUMARATE 25 MG TABLET PO ONE (20:10)
[2020-05-19] MEDS ORDERED: QUETIAPINE FUMARATE 25 MG TABLET ONE (21:07)
[2020-05-20] MEDS ORDERED: METOPROLOL TARTRATE PF/INJ 5 MG/5 ML SDV IV ONE (00:30)
[2020-05-20] MEDS: RINGERS SOLUTION,LACTATED 1,000 ML IV PRN ×2 (03:16→16:37)
[2020-05-20] MEDS: METOPROLOL TARTRATE PF/INJ 5 MG/5 ML SDV IV SCH ×4 (05:20→23:40)
[2020-05-20] MEDS: METHYLPREDNISOLONE INJ 40 MG/1 ML SDV IV SCH ×2 (05:20→17:24)
[2020-05-20 06:34] LABS: ANION GAP 11 (5-19); BLOOD UREA NITROGEN 42 mg/dL (7-20); CALCIUM 8.7 mg/dL (8.4-10.2); CARBON DIOXIDE 27 mmol/L (22-30); CHLORIDE 103 mmol/L (98-107); POTASSIUM 4.6 mmol/L (3.6-5.0)
[2020-05-20 07:11] LABS: GLUCOSE 61 mg/dL (75-110)
[2020-05-20 08:24] LABS: HEMATOCRIT 30.3 % (37.9-51.0); HEMOGLOBIN 9.9 g/dL (13.5-17.0); MEAN CORPUSCULAR HEMOGLOBIN 30.4 pg (27.0-33.4); MEAN CORPUSCULAR HGB CONC 32.6 g/dL (32.0-36.0); MEAN CORPUSCULAR VOLUME 93 fl (80-97); PLATELET COUNT 171 10^3/uL (150-450); RED BLOOD COUNT 3.25 10^6/uL (4.35-5.55); RED CELL DISTRIBUTION WIDTH 15.7 % (11.5-14.0)
--- NOTE | 2020-05-20 08:31 | RADIOLOGY REPORT (SQ) ---
EXAM DESCRIPTION: CHEST SINGLE VIEW IMAGES COMPLETED DATE/TIME: 05/20/2020 6:36 am REASON FOR STUDY: Respiratory Failure COMPARISON: AP view of the chest from 05/19/2020. EXAM PARAMETERS: NUMBER OF VIEWS: One view. TECHNIQUE: An AP view of the chest was obtained. RADIATION DOSE: NA LIMITATIONS: None. FINDINGS: LUNGS AND PLEURA: Unchanged appearance of the lungs and pleura. MEDIASTINUM AND HILAR STRUCTURES: Stable mediastinal and hilar contours. HEART AND VASCULAR STRUCTURES: Stable cardiac silhouette. BONES: No acute findings. HARDWARE: None in the chest. OTHER: No other finding. IMPRESSION: Unchanged radiographic appearance of the chest. TECHNICAL DOCUMENTATION: JOB ID: [id number] 2010 [employer]- All Rights Reserved Reading location - IP/workstation name: [email or web address]
[2020-05-20 08:43] LABS: WHITE BLOOD COUNT 27.4 10^3/uL (4.0-10.5)
[2020-05-20] MEDS: DILTIAZEM HCL 180 MG CAPSULE.CR PO SCH (10:38)
[2020-05-20] MEDS: ALPRAZOLAM 0.5 MG TABLET PO SCH ×2 (10:39→21:42)
[2020-05-20] MEDS: LEVOFLOXACIN 500 MG/D5W RTU 500 MG/100 ML RTUPB IV SCH (10:40)
[2020-05-20] MEDS: FAMOTIDINE INJ/PF 20 MG/2 ML SDV IV SCH (10:41)
[2020-05-20] MEDS: ENOXAPARIN SODIUM INJ 30 MG/0.3 ML DISP.SYRIN SUBCUT SCH (10:43)
[2020-05-20] MEDS: FLUTICASONE/UMECLIDIN/VILANTER 100-62.5-25 MCG/DOSE IH SCH (10:47)
--- NOTE | 2020-05-20 11:31 | PDOC CRITICAL CARE PROG REPORT ---
General Date:: 05/20/20 ICU Day:: 6 Hospital Day:: 6 Resuscitation Status: Full Code Events in the past 12 to 24 Hours:: Off bipap but still needing Precedex to control him. May be having benzo withrawal. May 18. Clot dislodged in 3-way pettit. May 17. Risk of intubation abated. Doing well on bipap. May 16. Transfused 2U PBBCs. Pettit bleeding, 3-way inserted for bladder irrigation. 05/20 The patient has logorrhea. He is difficult to understand and his ramblings don't always make sense. He was restarted on Xanax as the patient had been taking Ativan at home for a long time and was thought ot bew having issyues related to it's withdrawl. 'We can take patient off BIPSAP which may relkax him. He canlikely leave the ICU environment. Reason for ICU Addmission:: Delirium, need for Precedex. Physical Exam Vital Signs: Temp Pulse Resp BP Pulse Ox 97.8 F 144 H 22 H 128/92 H 100 05/20/20 08:00 05/19/20 20:00 05/20/20 10:42 05/20/20 10:42 05/20/20 10:42 Intake & Output 05/19/20 05/20/20 05/21/20 06:59 06:59 06:59 Intake Total 00916 2143 Output Total 51722 1765 500 Balance -537 378 -500 Weight 76.3 kg 79.1 kg Weight/Height Weight 79.1 kg Height 5 ft 7 in General appearance: PRESENT: mild distress Head exam: PRESENT: atraumatic, normocephalic Eye exam: PRESENT: conjunctiva pink Mouth exam: PRESENT: moist Neck exam: PRESENT: full ROM. ABSENT: tenderness Respiratory exam: ABSENT: accessory muscle use Cardiovascular exam: PRESENT: irregular rhythm Pulses: PRESENT: normal carotid pulses Rectal exam: PRESENT: deferred Gentrourinary exam: ABSENT: ecchymosis Extremities exam: ABSENT: calf tenderness Neurological exam: PRESENT: alert Psychiatric exam: PRESENT: manic Focused psych exam: PRESENT: flight of ideas Skin exam: PRESENT: normal color Laboratory/Radiographs Laboratory Results: 05/20/20 05:20 05/20/20 05:20 11/16/20 11/16/20 05:20 05:20 WBC 27.4 H D RBC 3.25 L Hgb 9.9 L Hct 30.3 L MCV 93 MCH 30.4 MCHC 32.6 RDW 15.7 H Plt Count 171 Sodium 140.7 Potassium 4.6 Chloride 103 Carbon Dioxide 27 Anion Gap 11 BUN 42 H Creatinine 1.14 Est GFR ( Amer) > 60 Glucose 61 L Calcium 8.7 05/14/20 16:43 Blood Blood Culture - Final NO GROWTH IN 5 DAYS 05/14/20 14:47 Blood Blood Culture - Final NO GROWTH IN 5 DAYS 05/14/20 14:47 Troponin I < 0.012 Impressions: Head CT 05/15/20 00:00 IMPRESSION: 1. No acute intracranial findings. 2. Mild atrophy as on prior exam Chest X-Ray 05/20/20 06:00 IMPRESSION: Unchanged radiographic appearance of the chest. Assessment and Plan - Diagnosis (1) Acute respiratory failure with hypercapnia Is this a current diagnosis for this admission?: Yes Plan: Seems to be improved. Off bipap and doing well thus far this morning. 05/20 The poatient appears commfortable. Can rpobably remains off BIPSAP. Last ABG showed eucapnea from a few days ago. CXR is uncahnged (2) Encephalopathy acute Is this a current diagnosis for this admission?: Yes Plan: Worsened by baseline dementia. He has been refusing PO ativan, a home medicatin. This could partially explain his behavior from a benzo WD picture. IV ativan ordered if he does not take PO. I would not downgrade until he is off precedex. 05/20 I have oredered Seroquel 25mg bid for his delirium. (3) Acute renal failure Is this a current diagnosis for this admission?: Yes Plan: Creatinine back in the normal range. Urine output 1760 yesterday. (4) Atrial flutter Qualifiers: Atrial flutter type: typical Qualified Code(s): I48.3 - Typical atrial flutter Is this a current diagnosis for this admission?: Yes Plan: Heart rate between 110-130. I have started home cardizem at dose of 180 bonnie a day. Has been getting prn IV metoprolol. Critical Time Critical Time (minutes): 25 Level of Care: ICU -: 1. The care of a critical patient is a dynamic process. This note is a clearance representative synopsis but static in nature. The timeframe for treatments given in order is not necessarily the actual time these treatments may have been done. 2. This patient requires critical care secondary to ongoing requirements for therapy not offered or safe outside the critical care environment. Transfer to a lower level of care will result in altered life or limb morbidity and mortality. 3. Multidisciplinary rounds completed. 4. ABCDE bundle addressed.
[2020-05-20] MEDS: QUETIAPINE FUMARATE 25 MG TABLET PO SCH (17:19)
[2020-05-20] MEDS: LORAZEPAM INJ 2 MG/1 ML VIAL IV PRN (21:32)
[2020-05-21] MEDS: LORAZEPAM INJ 2 MG/1 ML VIAL IV PRN ×4 (02:41→23:25)
[2020-05-21 05:07] LABS: HEMATOCRIT 30.6 % (37.9-51.0); HEMOGLOBIN 9.8 g/dL (13.5-17.0); MEAN CORPUSCULAR HEMOGLOBIN 30.2 pg (27.0-33.4); MEAN CORPUSCULAR HGB CONC 32.1 g/dL (32.0-36.0); MEAN CORPUSCULAR VOLUME 94 fl (80-97); PLATELET COUNT 125 10^3/uL (150-450); RED BLOOD COUNT 3.25 10^6/uL (4.35-5.55); RED CELL DISTRIBUTION WIDTH 15.5 % (11.5-14.0); WHITE BLOOD COUNT 15.7 10^3/uL (4.0-10.5)
[2020-05-21] MEDS: MORPHINE SULFATE 10 MG/ML INJ IV PRN (05:24)
[2020-05-21] MEDS: QUETIAPINE FUMARATE 25 MG TABLET PO SCH ×2 (05:28→21:34)
[2020-05-21] MEDS: METHYLPREDNISOLONE INJ 40 MG/1 ML SDV IV SCH ×2 (05:28→17:25)
[2020-05-21] MEDS: METOPROLOL TARTRATE PF/INJ 5 MG/5 ML SDV IV SCH ×4 (05:28→23:25)
--- NOTE | 2020-05-21 06:55 | CDI QUERY ---
CDI Query CDI Review: Dear Provider, Please further specify, "acute encephalopathy", found in progress notes: ACUTE METABOLIC ENCEPHALOPATHY? ACUTE TOXIC ENCEPHALOPATHY? ACUTE CONFUSIONAL STATE? OTHER? Thanks, Maureen Hernandes, [facility] [phone]
--- NOTE | 2020-05-21 07:12 | CDI QUERY ---
CDI Query CDI Review: Dear Provider, To capture severity of illness, please clarify and document in progress notes and D/C summary if: ASPIRATION PNEUMONIA was confirmed, resolved, or ruled out. IF RULED OUT: Possible ASPIRATION PNEUMONITIS? RESPIRATORY FAILURE ONLY? Information found in [facility] admitting note Thanks, Maureen Hernandes, CDI
--- NOTE | 2020-05-21 08:40 | PDOC CRITICAL CARE PROG REPORT ---
General Date:: 05/21/20 ICU Day:: 7 Hospital Day:: 7 Resuscitation Status: Full Code Events in the past 12 to 24 Hours:: Off bipap but still needing Precedex to control him. May be having benzo withwal. May 18. Clot dislodged in 3-way pettit. May 17. Risk of intubation abated. Doing well on bipap. May 16. Transfused 2U PBBCs. Pettit bleeding, 3-way inserted for bladder irrigation. 05/20 The patient has logorrhea. He is difficult to understand and his ramblings don't always make sense. He was restarted on Xanax as the patient had been taking Ativan at home for a long time and was thought ot bew having issyues related to it's withdrawl. 'We can take patient off BIPAP which may relax him. He can likely leave the ICU environment. 05/21 The patient is off BIPAP by day. He apparently was slightly agitated last night but he was apparently less disoruptive than the previos night. HIs heart rate is better controlled, Heart rate is 90-100. I added Cardizem CD 180 yesterday to his regimen. I am hopsing to transfer thepatiet to the regular medical floor today. Reason for ICU Addmission:: Delirium, need for Precedex. Physical Exam Vital Signs: Temp Pulse Resp BP Pulse Ox 97.5 F 120 H 17 95/64 L 100 05/21/20 03:25 05/20/20 21:39 05/21/20 08:15 05/21/20 05:43 05/21/20 08:15 Intake & Output 05/20/20 05/21/20 05/22/20 06:59 06:59 06:59 Intake Total 2143 1110 0 Output Total 1765 1718 100 Balance 378 -608 -100 Weight 79.1 kg 78.8 kg Weight/Height Weight 78.8 kg Height 5 ft 7 in Laboratory/Radiographs Laboratory Results: 05/21/20 04:12 05/20/20 05:20 05/20/20 05/21/20 05:20 04:12 WBC 27.4 H D 15.7 H RBC 3.25 L 3.25 L Hgb 9.9 L 9.8 L Hct 30.3 L 30.6 L MCV 93 94 MCH 30.4 30.2 MCHC 32.6 32.1 RDW 15.7 H 15.5 H Plt Count 171 125 L 05/14/20 14:47 Troponin I < 0.012 Impressions: Head CT 05/15/20 00:00 IMPRESSION: 1. No acute intracranial findings. 2. Mild atrophy as on prior exam Chest X-Ray 05/20/20 06:00 IMPRESSION: Unchanged radiographic appearance of the chest. Assessment and Plan - Diagnosis (1) Acute respiratory failure with hypercapnia Is this a current diagnosis for this admission?: Yes Plan: Seems to be improved. Off bipap and doing well thus far this morning. 05/20 The patient appears comfortable. Can probably remains off BIPSAP. Last ABG showed eucapnea from a few days ago. CXR is uncahnged. 05/21 Respiratory status improved. He remains on nasal cannula by day and CPAP at HS. (2) Acute renal failure Is this a current diagnosis for this admission?: Yes Plan: Creatinine back in the normal range. Urine output 1760 yesterday. 07/21 Acute renal problems resolved. no further hematuria. CBI stopped. (3) Atrial flutter Qualifiers: Atrial flutter type: typical Qualified Code(s): I48.3 - Typical atrial flutter Is this a current diagnosis for this admission?: Yes Plan: Heart rate between 110-130. I have started home cardizem at dose of 180 bonnie a day. Has been getting prn IV metoprolol. 05/21 Hear rtae better controlled. Started on po crdizem which was a home med. (4) Dementia Is this a current diagnosis for this admission?: Yes Plan: The patient apparently has longstanding dementai and intermittent agitation. Has apparently been on benzodiazepines for several years and they were restarted. he was started on seroquel last night. Critical Time Critical Time (minutes): 20 Level of Care: ICU -: 1. The care of a critical patient is a dynamic process. This note is a bilingual sales representative synopsis but static in nature. The timeframe for treatments given in order is not necessarily the actual time these treatments may have been done. 2. This patient requires critical care secondary to ongoing requirements for therapy not offered or safe outside the critical care environment. Transfer to a lower level of care will result in altered life or limb morbidity and mortality. 3. Multidisciplinary rounds completed. 4. ABCDE bundle addressed.
[2020-05-21] MEDS: DILTIAZEM HCL 180 MG CAPSULE.CR PO SCH (11:34)
[2020-05-21] MEDS: LEVOFLOXACIN 500 MG/D5W RTU 500 MG/100 ML RTUPB IV SCH (11:42)
[2020-05-21] MEDS: ENOXAPARIN SODIUM INJ 30 MG/0.3 ML DISP.SYRIN SUBCUT SCH (11:42)
[2020-05-21] MEDS: FAMOTIDINE INJ/PF 20 MG/2 ML SDV IV SCH (11:44)
[2020-05-21] MEDS: FLUTICASONE/UMECLIDIN/VILANTER 100-62.5-25 MCG/DOSE IH SCH (11:45)
[2020-05-21] MEDS: ALPRAZOLAM 0.5 MG TABLET PO SCH ×2 (11:46→21:34)
[2020-05-21 15:14] LABS: ARTERIAL BLOOD BASE EXCESS 1.8 mmol/L; ARTERIAL BLOOD H2CO3 1.72 mmol/L (1.05-1.35); ARTERIAL BLOOD HCO3 28.7 mmol/L (20-24); ARTERIAL BLOOD O2 SATURATION 83.4 % (94-98); ARTERIAL BLOOD PH 7.32 (7.35-7.45); ARTERIAL BLOOD PO2 52.1 mmHg (80-100); ARTERIAL BLOOD TOTAL CO2 30.5 mmol/L (23-27)
--- NOTE | 2020-05-21 15:15 | EKG REPORT ---
SEVERITY:- ABNORMAL ECG - ATRIAL FIBRILLATION MULTIFORM VENTRICULAR PREMATURE COMPLEXES ABNORMAL T, CONSIDER ISCHEMIA, LATERAL LEADS : Confirmed by: Kamilla Gaines MD 21-May-2020 15:13:59
[2020-05-21 15:16] LABS: ARTERIAL BLOOD FIO2 8L
[2020-05-21] MEDS ORDERED: HALOPERIDOL LACTATE INJ 5 MG/1 ML VIAL IV ONE (19:46)
[2020-05-21] MEDS ORDERED: HALOPERIDOL LACTATE INJ 5 MG/1 ML VIAL ONE (19:46)
[2020-05-22] MEDS: RINGERS SOLUTION,LACTATED 1,000 ML IV PRN (02:05)
[2020-05-22] MEDS: LORAZEPAM INJ 2 MG/1 ML VIAL IV PRN ×2 (02:27→19:55)
[2020-05-22] MEDS: MORPHINE SULFATE 10 MG/ML INJ IV PRN ×2 (02:55→19:55)
[2020-05-22 04:21] LABS: HEMOGLOBIN 8.3 g/dL (13.5-17.0); MEAN CORPUSCULAR HEMOGLOBIN 31.4 pg (27.0-33.4); MEAN CORPUSCULAR VOLUME 95 fl (80-97); PLATELET COUNT 114 10^3/uL (150-450); RED BLOOD COUNT 2.63 10^6/uL (4.35-5.55); RED CELL DISTRIBUTION WIDTH 15.9 % (11.5-14.0); WHITE BLOOD COUNT 9.6 10^3/uL (4.0-10.5)
[2020-05-22 04:37] LABS: ANION GAP 5 (5-19); BLOOD UREA NITROGEN 38 mg/dL (7-20); CALCIUM 8.1 mg/dL (8.4-10.2); CARBON DIOXIDE 30 mmol/L (22-30); CHLORIDE 106 mmol/L (98-107); GLUCOSE 109 mg/dL (75-110); POTASSIUM 4.7 mmol/L (3.6-5.0)
[2020-05-22] MEDS: METOPROLOL TARTRATE PF/INJ 5 MG/5 ML SDV IV SCH ×3 (05:17→18:21)
[2020-05-22] MEDS: METHYLPREDNISOLONE INJ 40 MG/1 ML SDV IV SCH ×2 (05:17→18:21)
[2020-05-22] MEDS: LEVOFLOXACIN 500 MG/D5W RTU 500 MG/100 ML RTUPB IV SCH (09:40)
[2020-05-22] MEDS: FLUTICASONE/UMECLIDIN/VILANTER 100-62.5-25 MCG/DOSE IH SCH (09:40)
[2020-05-22] MEDS: DILTIAZEM HCL 180 MG CAPSULE.CR PO SCH (09:40)
[2020-05-22] MEDS: FAMOTIDINE INJ/PF 20 MG/2 ML SDV IV SCH (09:40)
[2020-05-22] MEDS: ENOXAPARIN SODIUM INJ 30 MG/0.3 ML DISP.SYRIN SUBCUT SCH (09:41)
[2020-05-22] MEDS: ALPRAZOLAM 0.5 MG TABLET PO SCH ×2 (09:41→21:25)
--- NOTE | 2020-05-22 12:15 | PDOC CRITICAL CARE PROG REPORT ---
General Date:: 05/22/20 Resuscitation Status: Full Code Events in the past 12 to 24 Hours:: Off bipap but still needing Precedex to control him. May be having benzo withelodia. May 18. Clot dislodged in 3-way pettit. May 17. Risk of intubation abated. Doing well on bipap. May 16. Transfused 2U PBBCs. Pettit bleeding, 3-way inserted for bladder irrigation. 05/20 The patient has logorrhea. He is difficult to understand and his ramblings don't always make sense. He was restarted on Xanax as the patient had been taking Ativan at home for a long time and was thought ot bew having issyues related to it's withdrawl. 'We can take patient off BIPAP which may relax him. He can likely leave the ICU environment. 05/21 The patient is off BIPAP by day. He apparently was slightly agitated last night but he was apparently less disoruptive than the previos night. HIs heart rate is better controlled, Heart rate is 90-100. I added Cardizem CD 180 yesterday to his regimen. I am hopsing to transfer thepatiet to the regular medical floor today. 05/22 His heart rate is well controlled. he is on the oxymyzer at 8 lpm and 02 sat is satisfactory. The oatient has beeen agitated quite often. he yells out for his mother etc., He required IV halkdol last night. I talked to anastasia and we sorted out the dode status. sat ptresent thepatient is considered to be a chemical code alone. Reason for ICU Addmission:: Delirium, need for Precedex. Physical Exam Vital Signs: Temp Pulse Resp BP Pulse Ox 97.7 F 100 12 88/55 L 100 05/22/20 10:00 05/22/20 10:00 05/22/20 11:30 05/22/20 11:30 05/22/20 11:30 Intake & Output 05/21/20 05/22/20 05/23/20 06:59 06:59 06:59 Intake Total 2110 100 Output Total 1718 860 40 Balance 392 -760 -40 Weight 78.8 kg 79.9 kg Weight/Height Weight 79.9 kg Height 5 ft 7 in General appearance: PRESENT: no acute distress Head exam: PRESENT: atraumatic, normocephalic Ear exam: PRESENT: normal external ear exam Mouth exam: PRESENT: moist Neck exam: ABSENT: JVD, lymphadenopathy Respiratory exam: ABSENT: accessory muscle use Pulses: PRESENT: normal carotid pulses, normal dorsalis pedis pul GI/Abdominal exam: PRESENT: soft. ABSENT: guarding Rectal exam: PRESENT: deferred Extremities exam: ABSENT: calf tenderness, joint swelling Neurological exam: PRESENT: alert, other - I do not know if thong garrett is oriented to time and place presently. Laboratory/Radiographs Laboratory Results: 05/22/20 04:05 05/22/20 04:05 05/21/20 05/22/20 05/22/20 15:00 04:05 04:05 WBC 9.6 RBC 2.63 L Hgb 8.3 L Hct 25.0 L MCV 95 MCH 31.4 MCHC 33.0 RDW 15.9 H Plt Count 114 L Carbonic Acid 1.72 H HCO3/H2CO3 Ratio 16:1 ABG pH 7.32 L ABG pCO2 57.0 H ABG pO2 52.1 L ABG HCO3 28.7 H ABG O2 Saturation 83.4 L ABG Base Excess 1.8 FiO2 8L Sodium 141.2 Potassium 4.7 Chloride 106 Carbon Dioxide 30 Anion Gap 5 BUN 38 H Creatinine 1.09 Est GFR ( Amer) > 60 Glucose 109 Calcium 8.1 L 05/14/20 14:47 Troponin I < 0.012 Impressions: Head CT 05/15/20 00:00 IMPRESSION: 1. No acute intracranial findings. 2. Mild atrophy as on prior exam Chest X-Ray 05/20/20 06:00 IMPRESSION: Unchanged radiographic appearance of the chest. Assessment and Plan - Diagnosis (1) Acute respiratory failure with hypercapnia Is this a current diagnosis for this admission?: Yes (2) Acute renal failure Is this a current diagnosis for this admission?: Yes Plan: Creatinine back in the normal range. Urine output 1760 yesterday. 07/21 Acute renal problems resolved. no further hematuria. CBI stopped. 05/22 Renal fn. is back to normal. (3) Atrial flutter Qualifiers: Atrial flutter type: typical Qualified Code(s): I48.3 - Typical atrial flutter Is this a current diagnosis for this admission?: Yes Plan: Heart rate between 110-130. I have started home cardizem at dose of 180 bonnie a day. Has been getting prn IV metoprolol. 05/21 Hear rtae better controlled. Started on po crdizem which was a home med. 05/22 heart rate is well controlled between 90-110. (4) Dementia Qualifiers: Alzheimer's disease onset: unspecified onset Is this a current diagnosis for this admission?: Yes Plan: The patient apparently has longstanding dementai and intermittent agitation. Has apparently been on benzodiazepines for several years and they were restarted. he was started on seroquel last night. 05/22 it appears to be that thepatient has moderate dementia that has been unmasked to a greateer extent during this admission given his lack of sleeep, length of time in the ICU and his more recentr resp. issues. (5) Leukocytosis Is this a current diagnosis for this admission?: Yes Plan: The patient had a high WBC yesterday. I assumed it was due to use of the solumedrol. He has been afebbrile. He has had no change in cough or CXR. Critical Time Critical Time (minutes): 25 Level of Care: ICU -: 1. The care of a critical patient is a dynamic process. This note is a account representative synopsis but static in nature. The timeframe for treatments given in order is not necessarily the actual time these treatments may have been done. 2. This patient requires critical care secondary to ongoing requirements for therapy not offered or safe outside the critical care environment. Transfer to a lower level of care will result in altered life or limb morbidity and mortality. 3. Multidisciplinary rounds completed. 4. ABCDE bundle addressed.
[2020-05-22 12:56] LABS: ARTERIAL BLOOD BASE EXCESS 2.4 mmol/L; ARTERIAL BLOOD FIO2 8L; ARTERIAL BLOOD H2CO3 1.85 mmol/L (1.05-1.35); ARTERIAL BLOOD HCO3 29.7 mmol/L (20-24); ARTERIAL BLOOD O2 SATURATION 77.4 % (94-98); ARTERIAL BLOOD PCO2 61.6 mmHg (35-45); ARTERIAL BLOOD PO2 46.9 mmHg (80-100); ARTERIAL BLOOD TOTAL CO2 31.6 mmol/L (23-27)
--- NOTE | 2020-05-22 19:40 | RADIOLOGY REPORT (SQ) ---
EXAM DESCRIPTION: CHEST SINGLE VIEW IMAGES COMPLETED DATE/TIME: 05/22/2020 7:28 pm REASON FOR STUDY: worse resp status COMPARISON: 05/20/2020 EXAM PARAMETERS: NUMBER OF VIEWS: One view. TECHNIQUE: Single frontal radiographic view of the chest acquired. RADIATION DOSE: NA LIMITATIONS: None. FINDINGS: LUNGS AND PLEURA: Increase in the left pleural effusion. Right lung remains clear. Paren chymal opacities on the left stable. MEDIASTINUM AND HILAR STRUCTURES: No masses. Contour normal. HEART AND VASCULAR STRUCTURES: Heart normal in size. Normal vasculature. BONES: No acute findings. HARDWARE: None in the chest. OTHER: No other significant finding. IMPRESSION: Increase in the left pleural effusion. TECHNICAL DOCUMENTATION: JOB ID: [id number] 2010 [employer]- All Rights Reserved Reading location - IP/workstation name: [email or web address]
[2020-05-22] MEDS: QUETIAPINE FUMARATE 25 MG TABLET PO SCH (21:24)
[2020-05-23] MEDS: MORPHINE SULFATE 10 MG/ML INJ IV PRN ×2 (02:39→17:01)
[2020-05-23] MEDS: METOPROLOL TARTRATE PF/INJ 5 MG/5 ML SDV IV SCH ×5 (02:39→23:56)
[2020-05-23] MEDS: LORAZEPAM INJ 2 MG/1 ML VIAL IV PRN ×3 (02:39→20:03)
[2020-05-23] MEDS: METHYLPREDNISOLONE INJ 40 MG/1 ML SDV IV SCH ×2 (05:41→18:33)
[2020-05-23] MEDS: RINGERS SOLUTION,LACTATED 1,000 ML IV PRN ×2 (06:04→20:04)
[2020-05-23] MEDS: FLUTICASONE/UMECLIDIN/VILANTER 100-62.5-25 MCG/DOSE IH SCH (10:59)
[2020-05-23] MEDS: DILTIAZEM HCL 180 MG CAPSULE.CR PO SCH (11:00)
[2020-05-23] MEDS: ALPRAZOLAM 0.5 MG TABLET PO SCH ×2 (11:01→21:11)
[2020-05-23] MEDS: FAMOTIDINE INJ/PF 20 MG/2 ML SDV IV SCH (11:01)
[2020-05-23] MEDS: LEVOFLOXACIN 500 MG/D5W RTU 500 MG/100 ML RTUPB IV SCH (11:01)
[2020-05-23] MEDS: ENOXAPARIN SODIUM INJ 30 MG/0.3 ML DISP.SYRIN SUBCUT SCH (11:02)
--- NOTE | 2020-05-23 12:06 | PDOC CRITICAL CARE PROG REPORT ---
General Date:: 05/23/20 ICU Day:: 9 Hospital Day:: 9 Resuscitation Status: Full Code Events in the past 12 to 24 Hours:: Off bipap but still needing Precedex to control him. May be having benzo ignacio. May 18. Clot dislodged in 3-way pettit. May 17. Risk of intubation abated. Doing well on bipap. May 16. Transfused 2U PBBCs. Pettit bleeding, 3-way inserted for bladder irrigation. 05/20 The patient has logorrhea. He is difficult to understand and his ramblings don't always make sense. He was restarted on Xanax as the patient had been taking Ativan at home for a long time and was thought ot bew having issyues related to it's withdrawl. 'We can take patient off BIPAP which may relax him. He can likely leave the ICU environment. 05/21 The patient is off BIPAP by day. He apparently was slightly agitated last night but he was apparently less disoruptive than the previos night. HIs heart rate is better controlled, Heart rate is 90-100. I added Cardizem CD 180 yesterday to his regimen. I am hopsing to transfer thepatiet to the regular medical floor today. 05/22 His heart rate is well controlled. he is on the oxymyzer at 8 lpm and 02 sat is satisfactory. The patient has been agitated quite often. he yells out for his mother etc., He required IV haldol last night. I talked to his and we sorted out the code status. At present the patient is considered to be a chemical code alone. 05/23 The patient has not been doing well the last couple of days. Has required fairly high levels of 02 at times. In addition he has dementia and intermittent deliria worse at HS. The patient had a CXR last night showing an increasing left effusion. It was tapped for 1200 cc this AM. The patient became lethargic afterwards. Had been on a NRM recently. ( Jeff not sure why he was emerson NRM) I placed the patient back on BIPAP and will recheck hsi ABG Reason for ICU Addmission:: Delirium, need for Precedex. Physical Exam Vital Signs: Temp Pulse Resp BP Pulse Ox 97.6 F 115 H 21 H 148/85 H 92 05/23/20 08:00 05/23/20 10:00 05/23/20 10:00 05/23/20 10:00 05/23/20 10:00 Intake & Output 05/22/20 05/23/20 05/24/20 06:59 06:59 06:59 Intake Total 100 1100 Output Total 860 620 230 Balance -760 480 -230 Weight 79.9 kg 81.6 kg Weight/Height Weight 81.6 kg Height 5 ft 7 in Laboratory/Radiographs Laboratory Results: 05/22/20 04:05 05/22/20 04:05 05/22/20 12:40 Carbonic Acid 1.85 H HCO3/H2CO3 Ratio 16:1 ABG pH 7.30 L ABG pCO2 61.6 H ABG pO2 46.9 L ABG HCO3 29.7 H ABG O2 Saturation 77.4 L ABG Base Excess 2.4 FiO2 8L 05/17/20 14:51 Blood Blood Culture - Final NO GROWTH IN 5 DAYS 05/17/20 12:00 Blood Blood Culture - Final NO GROWTH IN 5 DAYS 05/14/20 14:47 Troponin I < 0.012 Impressions: Head CT 05/15/20 00:00 IMPRESSION: 1. No acute intracranial findings. 2. Mild atrophy as on prior exam Chest X-Ray 05/22/20 00:00 IMPRESSION: Increase in the left pleural effusion. Assessment and Plan - Diagnosis (1) Acute respiratory failure with hypercapnia Is this a current diagnosis for this admission?: Yes Plan: Seems to be improved. Off bipap and doing well thus far this morning. 05/20 The patient appears comfortable. Can probably remains off BIPSAP. Last ABG showed eucapnea from a few days ago. CXR is uncahnged. 05/21 Respiratory status improved. He remains on nasal cannula by day and CPAP at . I tried thepatient on a Ventimask but he dropped his 092 sats to about 80%. Given his unchanged CXR, lack of secretions, afebbrile state I am not sure why his 02 needs are so high. The patient has been on DVT prophylaxis. 05/23 The patient has required increased 02 at times recently. He has had bad delirium at times as well. His COPD is fairly advanced. the patient is DNR/DNI at this time He did develop this pleural effusion which was just tapped for 1200ccc on the left side. (2) Atrial flutter Qualifiers: Atrial flutter type: typical Qualified Code(s): I48.3 - Typical atrial flutter Is this a current diagnosis for this admission?: Yes Plan: Heart rate between 110-130. I have started home cardizem at dose of 180 bonnie a day. Has been getting prn IV metoprolol. 05/21 Hear rtae better controlled. Started on po crdizem which was a home med. 05/22 heart rate is well controlled between 90-110. (3) Dementia Qualifiers: Alzheimer's disease onset: unspecified onset Is this a current diagnosis for this admission?: Yes Plan: The patient apparently has longstanding dementai and intermittent agitation. Has apparently been on benzodiazepines for several years and they were restarted. he was started on seroquel last night. 05/22 it appears to be that thepatient has moderate dementia that has been unmasked to a greateer extent during this admission given his lack of sleeep, length of time in the ICU and his more recentr resp. issues. 05/23 The patient is onSeroquel at HS. 2 nights ago he required Haldol after ywelling out for his mother. He ismuch calmer today. Critical Time Critical Time (minutes): 25 Level of Care: ICU -: 1. The care of a critical patient is a dynamic process. This note is a rental representative synopsis but static in nature. The timeframe for treatments given in order is not necessarily the actual time these treatments may have been done. 2. This patient requires critical care secondary to ongoing requirements for therapy not offered or safe outside the critical care environment. Transfer to a lower level of care will result in altered life or limb morbidity and mortality. 3. Multidisciplinary rounds completed. 4. ABCDE bundle addressed.
--- NOTE | 2020-05-23 12:36 | RADIOLOGY REPORT (SQ) ---
EXAM DESCRIPTION: CHEST SINGLE VIEW IMAGES COMPLETED DATE/TIME: 05/23/2020 12:27 pm REASON FOR STUDY: Post-thoracentesis COMPARISON: Earlier the same day. NUMBER OF VIEWS: One view. TECHNIQUE: Single frontal radiographic image of the chest acquired. LIMITATIONS: None. FINDINGS: LUNGS AND PLEURA: Decrease in left pleural effusion. No pneumothorax. MEDIASTINUM AND HEART: Stable heart size and mediastinal structures. BONY STRUCTURES: No acute findings. HARDWARE: None. OTHER: No other significant finding. IMPRESSION: No pneumothorax status post left thoracentesis. TECHNICAL DOCUMENTATION: JOB ID: [id number] Reading location - IP/workstation name: [facility]-
--- NOTE | 2020-05-23 12:49 | RADIOLOGY REPORT (SQ) ---
EXAM DESCRIPTION: U/S THORACENTESIS WITH IMAGING IMAGES COMPLETED DATE/TIME: 05/23/2020 11:50 am REASON FOR STUDY: thoracentesis COMPARISON: None. RADIATION DOSE: None LIMITATIONS: None. PROCEDURE: Procedure, risks, benefit, and alternative explained to the patient's , who then gave written consent. The patient was helped into a sitting position on the side of the of bed. The lef t posterior chest wall was marked using ultrasound guidance. A time-out was called for correct ngoc ng verification. Chest prepped and draped using sterile technique. Local anesthesia achieved using 6 ml of 1% lidocaine injection. A 6 [place] Fqpn-A-Ryjfuyaq needle was introduced into the left pleura l space. Fluid was aspirated. The catheter was removed and the entry site was covered with sterile bandage. No immediate complications noted. Fluid was sent to the lab for analysis. Images acquired during the procedure were stored on PACS. FINDINGS: ENTRY SITE: Left posterior chest. FLUID VOLUME: 1200 mL FLUID ANALYSIS: Serosanguineous OTHER: None IMPRESSION: SUCCESSFUL LEFT THORACENTESIS USING ULTRASOUND GUIDANCE. COMMENT: Patient medication list reviewed: Yes- Quality ID# [id number]:Eligible professional attests to doc umenting in the medical record they obtained, updated, or reviewed the patient's current medications. TECHNICAL DOCUMENTATION: JOB ID: [id number] 2010 [employer]- All Rights Reserved Reading location - IP/workstation name: [email or web address]
[2020-05-23] MEDS ORDERED: HEPARIN SOD (PORCINE) 5,000 UNIT/ML 1 ML VIAL SUBCUT SCH (14:00)
[2020-05-23] MEDS: QUETIAPINE FUMARATE 25 MG TABLET PO SCH (21:11)
[2020-05-24] MEDS: METHYLPREDNISOLONE INJ 40 MG/1 ML SDV IV SCH ×2 (05:26→18:44)
[2020-05-24] MEDS: METOPROLOL TARTRATE PF/INJ 5 MG/5 ML SDV IV SCH ×3 (05:26→18:43)
[2020-05-24] MEDS: RINGERS SOLUTION,LACTATED 1,000 ML IV PRN ×2 (05:26→18:52)
[2020-05-24] MEDS ORDERED: PANTOPRAZOLE SODIUM 40 MG VIAL IV SCH (10:00)
[2020-05-24] MEDS: FLUTICASONE/UMECLIDIN/VILANTER 100-62.5-25 MCG/DOSE IH SCH (10:25)
[2020-05-24] MEDS: ALPRAZOLAM 0.5 MG TABLET PO SCH ×3 (10:25→21:40)
[2020-05-24] MEDS: DILTIAZEM HCL 180 MG CAPSULE.CR PO SCH ×2 (10:25→10:26)
[2020-05-24] MEDS: FAMOTIDINE INJ/PF 20 MG/2 ML SDV IV SCH (10:25)
[2020-05-24] MEDS: ENOXAPARIN SODIUM INJ 30 MG/0.3 ML DISP.SYRIN SUBCUT SCH (10:25)
[2020-05-24 12:50] LABS: TOTAL PROTEIN BODY FLUID 2.1 g/dL (.)
[2020-05-24] MEDS: QUETIAPINE FUMARATE 25 MG TABLET PO SCH ×2 (18:44→21:40)
[2020-05-24] MEDS: LORAZEPAM INJ 2 MG/1 ML VIAL IV PRN ×3 (18:44→21:47)
[2020-05-25] MEDS: METOPROLOL TARTRATE PF/INJ 5 MG/5 ML SDV IV SCH ×3 (00:09→11:13)
[2020-05-25] MEDS: METHYLPREDNISOLONE INJ 40 MG/1 ML SDV IV SCH (05:15)
[2020-05-25 05:16] LABS: ARTERIAL BLOOD BASE EXCESS -2.6 mmol/L; ARTERIAL BLOOD H2CO3 1.19 mmol/L (1.05-1.35); ARTERIAL BLOOD HCO3 22.4 mmol/L (20-24); ARTERIAL BLOOD O2 SATURATION 87.6 % (94-98); ARTERIAL BLOOD PCO2 39.6 mmHg (35-45); ARTERIAL BLOOD PH 7.37 (7.35-7.45); ARTERIAL BLOOD PO2 54.4 mmHg (80-100); ARTERIAL BLOOD TOTAL CO2 23.6 mmol/L (23-27)
[2020-05-25 05:18] LABS: ARTERIAL BLOOD FIO2 4L
[2020-05-25] MEDS: ENOXAPARIN SODIUM INJ 30 MG/0.3 ML DISP.SYRIN SUBCUT SCH (09:07)
[2020-05-25] MEDS: FAMOTIDINE INJ/PF 20 MG/2 ML SDV IV SCH ×2 (09:15→09:23)
[2020-05-25] MEDS ORDERED: METOPROLOL TARTRATE PF/INJ 5 MG/5 ML SDV IV ONE (09:15)
[2020-05-25] MEDS: DILTIAZEM HCL 180 MG CAPSULE.CR PO SCH ×2 (09:23→11:20)
[2020-05-25] MEDS: QUETIAPINE FUMARATE 25 MG TABLET PO SCH ×3 (09:23→21:16)
[2020-05-25] MEDS: FLUTICASONE/UMECLIDIN/VILANTER 100-62.5-25 MCG/DOSE IH SCH (09:24)
[2020-05-25] MEDS: ALPRAZOLAM 0.5 MG TABLET PO SCH (09:24)
[2020-05-25] MEDS: RINGERS SOLUTION,LACTATED 1,000 ML IV PRN (11:46)
[2020-05-25] MEDS: LORAZEPAM INJ 2 MG/1 ML VIAL IV PRN ×2 (12:34→20:12)
--- NOTE | 2020-05-25 13:41 | PDOC PROGRESS REPORT ---
Subjective Date:: 05/25/20 Subjective:: Patient was apparently transferred from the intensive care unit overnight and ilya armas was seen by me today at the request of the nurse due to respiratory distress. It got to see the patient and by the time I got there he had been placed back on BiPAP. He had been on BiPAP in the intensive care unit and that this had been discontinued. Patient was placed back on BiPAP and is breathing improved. He is currently on FiO2 of 40%, respiratory rate of 14, EPAP of 8 and IPAP of 16. He is noted to be tachycardic and in fact he had received 5 mg of Lopressor IV early on today. He is unable to swallow due to some dysphagia Reason For Visit: HYPERCAPNIC RESPIRATORY FAILIURE Physical Exam Vital Signs: Temp Pulse Resp BP Pulse Ox 98.1 F 86 28 H 129/79 H 97 05/25/20 10:00 05/25/20 08:00 05/25/20 12:20 05/25/20 08:00 05/25/20 12:20 Intake & Output 05/24/20 05/25/20 05/26/20 06:59 06:59 06:59 Intake Total 1803 1000 998 Output Total 1445 1040 Balance 358 -40 998 Weight 79.3 kg 78.4 kg General appearance: PRESENT: mild distress Head exam: PRESENT: atraumatic Respiratory exam: PRESENT: decreased breath sounds, rhonchi, tachypnea Cardiovascular exam: PRESENT: irregular rhythm, +S1, +S2 GI/Abdominal exam: PRESENT: normal bowel sounds, soft Rectal exam: PRESENT: deferred Musculoskeletal exam: PRESENT: ambulatory Neurological exam: PRESENT: alert, awake, other - confused Psychiatric exam: PRESENT: agitated Results Laboratory Results: 05/22/20 04:05 05/22/20 04:05 05/25/20 05/25/20 04:35 05:10 Carbonic Acid Cancelled 1.19 HCO3/H2CO3 Ratio Cancelled 18:1 ABG pH Cancelled 7.37 ABG pCO2 Cancelled 39.6 ABG pO2 Cancelled 54.4 L ABG HCO3 Cancelled 22.4 ABG O2 Saturation Cancelled 87.6 L ABG Base Excess Cancelled -2.6 FiO2 Cancelled 4L 05/14/20 14:47 Troponin I < 0.012 Impressions: Head CT 05/15/20 00:00 IMPRESSION: 1. No acute intracranial findings. 2. Mild atrophy as on prior exam Chest X-Ray 05/23/20 00:00 IMPRESSION: No pneumothorax status post left thoracentesis. Thoracentesis Ultrasound 05/23/20 09:19 IMPRESSION: SUCCESSFUL LEFT THORACENTESIS USING ULTRASOUND GUIDANCE. Assessment and Plan - Diagnosis (1) Acute respiratory failure with hypercapnia Is this a current diagnosis for this admission?: Yes Plan: Seems to be improved. Off bipap and doing well thus far this morning. 05/20 The patient appears comfortable. Can probably remains off BIPSAP. Last ABG showed eucapnea from a few days ago. CXR is uncahnged. 05/21 Respiratory status improved. He remains on nasal cannula by day and CPAP at . I tried thepatient on a Ventimask but he dropped his 092 sats to about 80%. Given his unchanged CXR, lack of secretions, afebbrile state I am not sure why his 02 needs are so high. The patient has been on DVT prophylaxis. 05/23 The patient has required increased 02 at times recently. He has had bad delirium at times as well. His COPD is fairly advanced. the patient is DNR/DNI at this time He did develop this pleural effusion which was just tapped for 1200ccc on the left side. 05/25 patient was placed back on BiPAP and this seems be settling down. Did confirm with the that he is a chemical code only and not to be placed on mechanical ventilation (2) COPD (chronic obstructive pulmonary disease) Qualifiers: COPD type: COPD with acute exacerbation Qualified Code(s): J44.1 - Chronic obstructive pulmonary disease with (acute) exacerbation Is this a current diagnosis for this admission?: Yes Plan: No active wheezing or exacerbation. We will continue to wean down steroids (3) Dementia Qualifiers: Alzheimer's disease onset: unspecified onset Is this a current diagnosis for this admission?: Yes Plan: The patient apparently has longstanding dementai and intermittent agitation. Has apparently been on benzodiazepines for several years and they were restarted. he was started on seroquel last night. 05/22 it appears to be that thepatient has moderate dementia that has been unmasked to a greateer extent during this admission given his lack of sleeep, length of time in the ICU and his more recentr resp. issues. 05/23 The patient is onSeroquel at HS. 2 nights ago he required Haldol after ywelling out for his mother. He ismuch calmer today. 05/24 as noted the Patient has been difficult to manage at times particualrly after ^PM. HaS BEEN ONsROQUEL THEPAST FEW DAYS. hE IS SLEEPING and difficult to arouse presently. Vitlas are stable. Will check on patient a little later. 05/25 we will continue with Ativan as needed to be used judiciously (4) Hematuria Qualifiers: Hematuria type: unspecified type Qualified Code(s): R31.9 - Hematuria, unspecified Is this a current diagnosis for this admission?: Yes Plan: Gross hematuria due to traumatic attempt to self DC Villa. Please see systems review for details. Overall, patient's hematuria has improved. After removing a clot from his Villa catheter, it appears as though some bleeding has continued. We will monitor CBC for evidence of blood loss and transfuse as needed. I expect that the bleeding will subside over the next 12 to 24 hours. Continue to monitor. 05/25 seems to have resolved (5) Pneumonia Qualifiers: Pneumonia type: aspiration pneumonia Laterality: bilateral Lung location: lower lobe of lung Is this a current diagnosis for this admission?: Yes Plan: CXR improved. Small L effusion. (6) Atrial flutter Qualifiers: Atrial flutter type: typical Qualified Code(s): I48.3 - Typical atrial flutter Is this a current diagnosis for this admission?: Yes Plan: Heart rate between 110-130. I have started home cardizem at dose of 180 bonnie a day. Has been getting prn IV metoprolol. 05/21 Hear rtae better controlled. Started on po crdizem which was a home med. 05/22 heart rate is well controlled between 90-110. 05/25 patient is on IV Lopressor and although is ordered Cardizem orally he is unable to swallow this. We will continue with IV Lopressor. Swallowing evaluation should be done subsequently - Plan Summary Summary: The patient had a more elevated WBC yesterday. he has been afebbbrile. Steroids were started 05/18 and I was attributing the rise to that. No new or worsening cough. 05/25 will obtain labs for a.m. - Time Time Spent with patient: 25-34 minutes Medications reviewed and adjusted accordingly: Yes Anticipated Discharge Disposition: Home with Home Health Anticipated Discharge Timeframe: within 72 hours
[2020-05-25] MEDS ORDERED: FUROSEMIDE INJ/PF 40 MG/4 ML SDV IV ONE (14:00)
[2020-05-25] MEDS: DILTIAZEM HCL/D5W 125 MG/125 ML RTUINJ IV PRN (15:32)
[2020-05-26] MEDS: RINGERS SOLUTION,LACTATED 1,000 ML IV PRN (01:10)
[2020-05-26] MEDS: METHYLPREDNISOLONE INJ 40 MG/1 ML SDV IV SCH (10:31)
[2020-05-26] MEDS: FAMOTIDINE INJ/PF 20 MG/2 ML SDV IV SCH (10:31)
[2020-05-26] MEDS: QUETIAPINE FUMARATE 25 MG TABLET PO SCH ×3 (10:32→21:58)
[2020-05-26] MEDS: DILTIAZEM HCL/D5W 125 MG/125 ML RTUINJ IV PRN (10:32)
[2020-05-26] MEDS: ENOXAPARIN SODIUM INJ 30 MG/0.3 ML DISP.SYRIN SUBCUT SCH (10:33)
[2020-05-26] MEDS: LORAZEPAM INJ 2 MG/1 ML VIAL IV PRN (10:33)
[2020-05-26] MEDS: FLUTICASONE/UMECLIDIN/VILANTER 100-62.5-25 MCG/DOSE IH SCH (10:48)
[2020-05-26] MEDS ORDERED: RINGERS SOLUTION,LACTATED 1,000 ML IV PRN (13:50)
--- NOTE | 2020-05-26 14:14 | PDOC PROGRESS REPORT ---
Subjective Date:: 05/26/20 Subjective:: Patient was apparently transferred from the intensive care unit overnight and ilya armas was seen by me today at the request of the nurse due to respiratory distress. It got to see the patient and by the time I got there he had been placed back on BiPAP. He had been on BiPAP in the intensive care unit and that this had been discontinued. Patient was placed back on BiPAP and is breathing improved. He is currently on FiO2 of 40%, respiratory rate of 14, EPAP of 8 and IPAP of 16. He is noted to be tachycardic and in fact he had received 5 mg of Lopressor IV early on today. He is unable to swallow due to some dysphagia Reason For Visit: HYPERCAPNIC RESPIRATORY FAILIURE Physical Exam Vital Signs: Temp Pulse Resp BP Pulse Ox 98.5 F 105 H 28 H 117/61 89 L 05/26/20 12:00 05/26/20 12:00 05/25/20 12:20 05/26/20 12:00 05/25/20 23:19 Intake & Output 05/25/20 05/26/20 05/27/20 06:59 06:59 06:59 Intake Total 1000 2168 95 Output Total 1040 3150 250 Balance -40 -982 -155 Weight 78.4 kg 78.4 kg General appearance: PRESENT: no acute distress, other - elderly and frail Mouth exam: PRESENT: tongue midline Respiratory exam: PRESENT: decreased breath sounds, unlabored Cardiovascular exam: PRESENT: irregular rhythm, +S1, +S2, tachycardia GI/Abdominal exam: PRESENT: normal bowel sounds, soft. ABSENT: tenderness Rectal exam: PRESENT: deferred Extremities exam: PRESENT: +1 edema Neurological exam: PRESENT: alert, altered, awake Psychiatric exam: PRESENT: agitated Results Laboratory Results: 05/22/20 04:05 05/22/20 04:05 05/23/20 12:15 Pleural Fluid - Left Pleural Effusion Gram Stain - Final 05/14/20 14:47 Troponin I < 0.012 Impressions: Head CT 05/15/20 00:00 IMPRESSION: 1. No acute intracranial findings. 2. Mild atrophy as on prior exam Chest X-Ray 05/23/20 00:00 IMPRESSION: No pneumothorax status post left thoracentesis. Thoracentesis Ultrasound 05/23/20 09:19 IMPRESSION: SUCCESSFUL LEFT THORACENTESIS USING ULTRASOUND GUIDANCE. Assessment and Plan - Diagnosis (1) Acute respiratory failure with hypercapnia Is this a current diagnosis for this admission?: Yes (2) COPD (chronic obstructive pulmonary disease) Qualifiers: COPD type: COPD with acute exacerbation Qualified Code(s): J44.1 - Chronic obstructive pulmonary disease with (acute) exacerbation Is this a current diagnosis for this admission?: Yes (3) Dementia Qualifiers: Alzheimer's disease onset: unspecified onset Is this a current diagnosis for this admission?: Yes (4) Hematuria Qualifiers: Hematuria type: unspecified type Qualified Code(s): R31.9 - Hematuria, unspecified Is this a current diagnosis for this admission?: Yes Plan: Gross hematuria due to traumatic attempt to self DC Villa. Please see systems review for details. Overall, patient's hematuria has improved. After removing a clot from his Villa catheter, it appears as though some bleeding has continued. We will monitor CBC for evidence of blood loss and transfuse as needed. I expect that the bleeding will subside over the next 12 to 24 hours. Continue to monitor. 05/25 seems to have resolved (5) Pneumonia Qualifiers: Pneumonia type: aspiration pneumonia Laterality: bilateral Lung location: lower lobe of lung Is this a current diagnosis for this admission?: Yes Plan: CXR improved. Small L effusion. He has completed his course of antibiotics. Follow-up chest x-ray as needed (6) Atrial flutter Qualifiers: Atrial flutter type: typical Qualified Code(s): I48.3 - Typical atrial flutter Is this a current diagnosis for this admission?: Yes Plan: Heart rate between 110-130. I have started home cardizem at dose of 180 bonnie a day. Has been getting prn IV metoprolol. 05/21 Hear rtae better controlled. Started on po crdizem which was a home med. 05/22 heart rate is well controlled between 90-110. 05/25 patient is on IV Lopressor and although is ordered Cardizem orally he is unable to swallow this. We will continue with IV Lopressor. Swallowing evaluation should be done subsequently 05/26 continue with Cardizem drip and attempts at convert to oral Cardizem once patient stable - Plan Summary Summary: The patient had a more elevated WBC yesterday. he has been afebbbrile. Steroids were started 05/18 and I was attributing the rise to that. No new or worsening cough. 05/25 will obtain labs for a.m. 05/26Patient condition remains the same. He remains on Cardizem drip with fairly controlled heart rate. His oral intake is still poor and so we are unable to give him a much orally either food or medications. He has being on Solu-Medrol which is currently being tapered ~20mg for now. He also remains on IV fluid although have decreased the amount due to his poor intake. He received a dose of Lasix yesterday which I think helped much with his breathing but will hold off on further doses and this should be reevaluated as needed. - Time Time Spent with patient: 15-24 minutes Medications reviewed and adjusted accordingly: Yes Anticipated Discharge Disposition: Home with Home Health Anticipated Discharge Timeframe: within 72 hours
[2020-05-27] MEDS: LORAZEPAM INJ 2 MG/1 ML VIAL IV PRN ×2 (00:53→23:40)
[2020-05-27 07:04] LABS: HEMATOCRIT 30.4 % (37.9-51.0); HEMOGLOBIN 9.7 g/dL (13.5-17.0); MEAN CORPUSCULAR HEMOGLOBIN 30.4 pg (27.0-33.4); MEAN CORPUSCULAR HGB CONC 31.9 g/dL (32.0-36.0); MEAN CORPUSCULAR VOLUME 95 fl (80-97); RED BLOOD COUNT 3.19 10^6/uL (4.35-5.55); RED CELL DISTRIBUTION WIDTH 17.6 % (11.5-14.0); WHITE BLOOD COUNT 20.5 10^3/uL (4.0-10.5)
[2020-05-27 07:09] LABS: BLOOD UREA NITROGEN 32 mg/dL (7-20); CALCIUM 7.8 mg/dL (8.4-10.2); GLUCOSE 103 mg/dL (75-110); POTASSIUM 5.2 mmol/L (3.6-5.0)
[2020-05-27 07:14] LABS: CARBON DIOXIDE 39 mmol/L (22-30); CHLORIDE 102 mmol/L (98-107)
[2020-05-27 07:19] LABS: ANION GAP 2 (5-19)
[2020-05-27 07:42] LABS: PLATELET COUNT 88 10^3/uL (150-450)
[2020-05-27 07:47] LABS: ABSOLUTE MONOCYTES # (MANUAL) 0.4 10^3/uL (0.1-1.4); ANISOCYTOSIS 1+; BASOPHILS % (MANUAL) 0 % (0-2); EOSINOPHILS % (MANUAL) 0 % (0-6); LYMPHOCYTES % (MANUAL) 0 % (13-45); MONOCYTES % (MANUAL) 2 % (3-13); PLATELET COMMENT DECREASED; SEGMENTED NEUTROPHILS % (MAN) 98 % (42-78); TOTAL CELLS COUNTED 100
[2020-05-27] MEDS: ENOXAPARIN SODIUM INJ 30 MG/0.3 ML DISP.SYRIN SUBCUT SCH (09:50)
[2020-05-27] MEDS: FAMOTIDINE INJ/PF 20 MG/2 ML SDV IV SCH (09:51)
[2020-05-27] MEDS: METHYLPREDNISOLONE INJ 40 MG/1 ML SDV IV SCH (09:56)
[2020-05-27] MEDS: QUETIAPINE FUMARATE 25 MG TABLET PO SCH ×3 (09:57→22:33)
[2020-05-27] MEDS: FLUTICASONE/UMECLIDIN/VILANTER 100-62.5-25 MCG/DOSE IH SCH (10:07)
--- NOTE | 2020-05-27 10:10 | PDOC PROGRESS REPORT ---
Subjective Date:: 05/27/20 Subjective:: Very garrulous. Nonstop talking. With dysarthria difficult to comprehend. Sta ff reports he did not sleep well last night. Reason For Visit: HYPERCAPNIC RESPIRATORY FAILIURE Physical Exam Vital Signs: Temp Pulse Resp BP Pulse Ox 98.0 F 111 H 24 H 91/63 L 99 05/27/20 00:00 05/27/20 07:00 05/27/20 00:00 05/27/20 06:00 05/26/20 20:14 Intake & Output 05/26/20 05/27/20 05/28/20 06:59 06:59 06:59 Intake Total 2168 145 Output Total 3150 2250 Balance -982 -2105 Weight 78.4 kg 74.9 kg General appearance: PRESENT: mild distress, well-developed Head exam: PRESENT: atraumatic, normocephalic Ear exam: PRESENT: normal external ear exam. ABSENT: bleeding, drainage Mouth exam: PRESENT: dry mucosa, tongue midline Respiratory exam: PRESENT: rales, symmetrical. ABSENT: rhonchi, tachypnea, wheezes Cardiovascular exam: PRESENT: irregular rhythm, tachycardia. ABSENT: bradycardia, diastolic murmur, systolic murmur GI/Abdominal exam: PRESENT: normal bowel sounds, soft. ABSENT: tenderness Extremities exam: ABSENT: pedal edema Neurological exam: PRESENT: alert, altered - Difficult to maintain train of thought. Rambles. Dysarthria and low volume of voice., awake, oriented to person, other - Difficult to fully assess orientation as the patient will continue to talk and not really address the question.. ABSENT: oriented to place, oriented to situation Psychiatric exam: ABSENT: agitated, anxious Results Laboratory Results: 05/27/20 05:59 05/27/20 05:59 05/27/20 05/27/20 05:59 05:59 WBC 20.5 H RBC 3.19 L Hgb 9.7 L Hct 30.4 L MCV 95 MCH 30.4 MCHC 31.9 L RDW 17.6 H Plt Count 88 L Seg Neutrophils % Not Reportable Sodium 142.6 Potassium 5.2 H Chloride 102 Carbon Dioxide 39 H Anion Gap 2 L BUN 32 H Creatinine 0.85 Est GFR ( Amer) > 60 Glucose 103 Calcium 7.8 L 05/23/20 12:15 Pleural Fluid - Left Pleural Effusion Gram Stain - Final 05/23/20 12:15 Pleural Fluid - Left Pleural Effusion Body Fluid Culture - Final NO AEROBIC OR ANAEROBIC ORGANISMS RECOVERED 05/14/20 14:47 Troponin I < 0.012 Impressions: Head CT 05/15/20 00:00 IMPRESSION: 1. No acute intracranial findings. 2. Mild atrophy as on prior exam Chest X-Ray 05/23/20 00:00 IMPRESSION: No pneumothorax status post left thoracentesis. Thoracentesis Ultrasound 05/23/20 09:19 IMPRESSION: SUCCESSFUL LEFT THORACENTESIS USING ULTRASOUND GUIDANCE. Assessment and Plan - Diagnosis (1) Acute respiratory failure with hypercapnia Is this a current diagnosis for this admission?: Yes (2) COPD (chronic obstructive pulmonary disease) Qualifiers: COPD type: COPD with acute exacerbation Qualified Code(s): J44.1 - Chronic obstructive pulmonary disease with (acute) exacerbation Is this a current diagnosis for this admission?: Yes (3) Dementia Qualifiers: Alzheimer's disease onset: unspecified onset Is this a current diagnosis for this admission?: Yes (4) Hematuria Qualifiers: Hematuria type: unspecified type Qualified Code(s): R31.9 - Hematuria, unspecified Is this a current diagnosis for this admission?: Yes (5) Pneumonia Qualifiers: Pneumonia type: aspiration pneumonia Laterality: bilateral Lung location: lower lobe of lung Is this a current diagnosis for this admission?: Yes (6) Atrial flutter Qualifiers: Atrial flutter type: typical Qualified Code(s): I48.3 - Typical atrial flutter Is this a current diagnosis for this admission?: Yes (7) Leukocytosis Qualifiers: Leukocytosis type: unspecified Qualified Code(s): D72.829 - Elevated white blood cell count, unspecified Is this a current diagnosis for this admission?: Yes (8) Lung nodule Is this a current diagnosis for this admission?: Yes - Plan Summary Summary: The patient had a more elevated WBC yesterday. he has been afebbbrile. Steroids were started 05/18 and I was attributing the rise to that. No new or worsening cough. 05/25 will obtain labs for a.m. 05/26Patient condition remains the same. He remains on Cardizem drip with fairly controlled heart rate. His oral intake is still poor and so we are unable to give him a much orally either food or medications. He has being on S fortino-Medrol which is currently being tapered ~20mg for now. He also remains on IV fluid although have decreased the amount due to his poor intake. He received a dose of Lasix yesterday which I think helped much with his breathing but will hold off on further doses and this should be reevaluated as needed. 05/27/2020 Back on diltiazem infusion. Will increase the rate. Once patient's rate is ar ound 100 I will restart oral diltiazem Called by pathology. Malignant cells seen in the thoracentesis pleural fluid. I reviewed old imaging studies and in 2019 there was a small nodule in the left lung. We will need to repeat a CT scan of the chest. We will have to do this while the patient is somewhat sedate. White blood cell count is still 20,000. Unsure of the exact etiology. Currently off of antibiotic therapy. Will likely need repeat cultures. Patient is rambling. Difficult to know the exact etiology. We will continue to decipher studies performed during this admission. - Time Time Spent with patient: 15-24 minutes Medications reviewed and adjusted accordingly: Yes Anticipated Discharge Disposition: Unknown Anticipated Discharge Timeframe: Unknown
[2020-05-27] MEDS: DILTIAZEM HCL/D5W 125 MG/125 ML RTUINJ IV PRN (17:41)
[2020-05-27] MEDS: RINGERS SOLUTION,LACTATED 1,000 ML IV PRN ×2 (17:42→22:33)
[2020-05-27] MEDS: PHENOL/SODIUM PHENOLATE 100 SPRAY/177 ML BOTTLE PO PRN (18:21)
[2020-05-28] MEDS: RINGERS SOLUTION,LACTATED 1,000 ML IV PRN ×2 (08:43→21:16)
[2020-05-28] MEDS ORDERED: SIMVASTATIN 40 MG TABLET PO SCH ×2 (10:00→22:00)
[2020-05-28] MEDS: TAMSULOSIN HCL 0.4 MG CAP.SR.24H PO SCH (10:58)
[2020-05-28] MEDS: APIXABAN 5 MG TABLET PO SCH ×2 (10:59→18:37)
[2020-05-28] MEDS: FAMOTIDINE 20 MG TABLET PO SCH (10:59)
[2020-05-28] MEDS: QUETIAPINE FUMARATE 25 MG TABLET PO SCH ×2 (10:59→18:37)
[2020-05-28] MEDS: METHYLPREDNISOLONE INJ 40 MG/1 ML SDV IV SCH (11:00)
[2020-05-28] MEDS: FLUTICASONE/UMECLIDIN/VILANTER 100-62.5-25 MCG/DOSE IH SCH (11:00)
[2020-05-28 11:42] LABS: HEMATOCRIT 30.8 % (37.9-51.0); HEMOGLOBIN 9.7 g/dL (13.5-17.0); MEAN CORPUSCULAR HEMOGLOBIN 30.3 pg (27.0-33.4); MEAN CORPUSCULAR HGB CONC 31.6 g/dL (32.0-36.0); MEAN CORPUSCULAR VOLUME 96 fl (80-97); RED BLOOD COUNT 3.21 10^6/uL (4.35-5.55); RED CELL DISTRIBUTION WIDTH 18.3 % (11.5-14.0); WHITE BLOOD COUNT 20.2 10^3/uL (4.0-10.5)
[2020-05-28 12:01] LABS: ALBUMIN 2.6 g/dL (3.5-5.0); BLOOD UREA NITROGEN 27 mg/dL (7-20); CHLORIDE 100 mmol/L (98-107); GLUCOSE 117 mg/dL (75-110); POTASSIUM 3.8 mmol/L (3.6-5.0)
--- NOTE | 2020-05-28 12:07 | PDOC PROGRESS REPORT ---
Subjective Date:: 05/28/20 Subjective:: Patient currently resting on BiPAP. Was on Oxymizer earlier. Not as talkative as yesterday. Nursing reports that he does have lucid conversations mixed with conversations that are difficult to comprehend. Reason For Visit: HYPERCAPNIC RESPIRATORY FAILIURE Physical Exam Vital Signs: Temp Pulse Resp BP Pulse Ox 97.4 F 127 H 25 H 123/75 92 05/28/20 09:02 05/28/20 10:29 05/28/20 09:35 05/28/20 10:29 05/28/20 09:35 Intake & Output 05/27/20 05/28/20 05/29/20 06:59 06:59 06:59 Intake Total 145 1172 1000 Output Total 2250 1000 Balance -2105 172 1000 Weight 74.9 kg 79.5 kg General appearance: PRESENT: mild distress, well-developed - Well-developed but frail-appearing 84-year-old patient resting in bed on BiPAP. Head exam: PRESENT: atraumatic, normocephalic Respiratory exam: PRESENT: clear to auscultation thais, symmetrical, tachypnea - Mild tachypnea on BiPAP, unlabored. ABSENT: rales, rhonchi, wheezes Cardiovascular exam: PRESENT: irregular rhythm. ABSENT: bradycardia, diastolic murmur, systolic murmur, tachycardia GI/Abdominal exam: PRESENT: normal bowel sounds, soft. ABSENT: distended, guarding, tenderness Rectal exam: PRESENT: deferred Musculoskeletal exam: PRESENT: normal inspection. ABSENT: deformity, dislocation Neurological exam: PRESENT: alert, altered - Difficult to have a discussion as the patient is on BiPAP. Nursing reports that he has had episodes of confusion., awake, oriented to person, other - Difficult to further assess today as he is on BiPAP Psychiatric exam: ABSENT: agitated, anxious Results Laboratory Results: 05/23/20 12:15 Pleural Fluid - Left Pleural Effusion Gram Stain - Final 05/23/20 12:15 Pleural Fluid - Left Pleural Effusion Body Fluid Culture - Final NO AEROBIC OR ANAEROBIC ORGANISMS RECOVERED 05/14/20 14:47 Troponin I < 0.012 Impressions: Head CT 05/15/20 00:00 IMPRESSION: 1. No acute intracranial findings. 2. Mild atrophy as on prior exam Chest X-Ray 05/23/20 00:00 IMPRESSION: No pneumothorax status post left thoracentesis. Thoracentesis Ultrasound 05/23/20 09:19 IMPRESSION: SUCCESSFUL LEFT THORACENTESIS USING ULTRASOUND GUIDANCE. Assessment and Plan - Diagnosis (1) Acute respiratory failure with hypercapnia Is this a current diagnosis for this admission?: Yes (2) COPD (chronic obstructive pulmonary disease) Qualifiers: COPD type: COPD with acute exacerbation Qualified Code(s): J44.1 - Chronic obstructive pulmonary disease with (acute) exacerbation Is this a current diagnosis for this admission?: Yes (3) Dementia Qualifiers: Alzheimer's disease onset: unspecified onset Is this a current diagnosis for this admission?: Yes (4) Hematuria Qualifiers: Hematuria type: unspecified type Qualified Code(s): R31.9 - Hematuria, unspecified Is this a current diagnosis for this admission?: Yes (5) Pneumonia Qualifiers: Pneumonia type: aspiration pneumonia Laterality: bilateral Lung location: lower lobe of lung Is this a current diagnosis for this admission?: Yes (6) Atrial flutter Qualifiers: Atrial flutter type: typical Qualified Code(s): I48.3 - Typical atrial flutter Is this a current diagnosis for this admission?: Yes (7) Leukocytosis Qualifiers: Leukocytosis type: unspecified Qualified Code(s): D72.829 - Elevated white blood cell count, unspecified Is this a current diagnosis for this admission?: Yes (8) Lung nodule Is this a current diagnosis for this admission?: Yes - Plan Summary Summary: The patient had a more elevated WBC yesterday. he has been afebbbrile. Steroids were started 05/18 and I was attributing the rise to that. No new or worsening cough. 05/25 will obtain labs for a.m. 05/26Patient condition remains the same. He remains on Cardizem drip with fairly controlled heart rate. His oral intake is still poor and so we are nilsa ble to give him a much orally either food or medications. He has being on Solu- Medrol which is currently being tapered ~20mg for now. He also remains on IV fluid although have decreased the amount due to his poor intake. He received a dose of Lasix yesterday which I think helped much with his breathing but will hold off on further doses and this should be reevaluated as needed. 05/27/2020 Back on diltiazem infusion. Will increase the rate. Once patient's rate is around 100 I will restart oral diltiazem Called by pathology. Malignant cells seen in the thoracentesis pleural fluid. I reviewed old imaging studies and in 2019 there was a small nodule in the left lung. We will need to repeat a CT scan of the chest. We will have to do this while the patient is somewhat sedate. White blood cell count is still 20,000. Unsure of the exact etiology. Currently off of antibiotic therapy. Will likely need repeat cultures. Patient is rambling. Difficult to know the exact etiology. We will continue to decipher studies performed during this admission. 05/28/2020 Atrial fibrillation-we will change the IV diltiazem to oral dosing. Will use short acting every 6 hours to establish an effective dose and then change to long-acting. Respiratory failure-still requiring BiPAP. We will continue to try to wean back to nasal cannula as tolerated. Lung nodule-with malignant cells in the pleural fluid and a CT scan with a 7 mm spiculated lesion in 2018 there is a high probability of lung malignancy. Await CT scan results from today. Leukocytosis-White blood cell count is still 20,000. The CT scan will show if there is a focus of infection in the lungs. I will also ask for urine and blood cultures. We will start antibiotic therapy after the cultures are obtained. The infection clearly would be treatable however the malignancy would be a very different story. At his age and in his current state he would not be a candidate for any active treatment at all. I had a long discussion with the patient's daughter about possible hospice options as well. - Time Time Spent with patient: 15-24 minutes Medications reviewed and adjusted accordingly: Yes Anticipated Discharge Disposition: Unknown Anticipated Discharge Timeframe: Unknown
[2020-05-28 12:14] LABS: PLATELET COUNT 78 10^3/uL (150-450)
[2020-05-28 12:15] LABS: CARBON DIOXIDE 39 mmol/L (22-30)
[2020-05-28] MEDS ORDERED: DILTIAZEM HCL 30 MG TABLET PO ONE (12:15)
[2020-05-28 12:20] LABS: ABSOLUTE LYMPHOCYTES# (MANUAL) 0.2 10^3/uL (0.5-4.7); ABSOLUTE MONOCYTES # (MANUAL) 0.4 10^3/uL (0.1-1.4); BASOPHILS % (MANUAL) 0 % (0-2); EOSINOPHILS % (MANUAL) 0 % (0-6); LYMPHOCYTES % (MANUAL) 1 % (13-45); MONOCYTES % (MANUAL) 2 % (3-13); SEGMENTED NEUTROPHILS % (MAN) 97 % (42-78); TOTAL CELLS COUNTED 100
[2020-05-28 12:21] LABS: ANISOCYTOSIS 1+
[2020-05-28 12:22] LABS: PLATELET COMMENT DECREASED
[2020-05-28 12:26] LABS: ANION GAP 4 (5-19)
--- NOTE | 2020-05-28 15:15 | ADVANCED CARE ---
- Diagnosis (1) Acute respiratory failure with hypercapnia Diagnosis Current: Yes (2) COPD (chronic obstructive pulmonary disease) Diagnosis Current: Yes (3) Dementia Diagnosis Current: Yes (4) Hematuria Diagnosis Current: Yes (5) Pneumonia Diagnosis Current: Yes (6) Atrial flutter Diagnosis Current: Yes (7) Leukocytosis Diagnosis Current: Yes (8) Lung nodule Diagnosis Current: Yes Attendance: I had a discussion with the patient's daughter Sonia on the phone as I had already spoken to the patient's earlier today. Resuscitation Status: Chemical Code Only Discussion: With malignant cells discovered on thoracentesis and history of lung nodule in 2018 lung cancer is the most likely pathology. The patient is getting a CT scan of the chest abdomen and pelvis today. The patient's daughter, Sonia, stated that she has had discussions with her father. His ultimate wish would be to at home. Unfortunately in his current clinical condition home hospice might not be a viable option. I explained that if the CT scan show advanced malignancy, which I think the scan will, then it might be best to move towards comfort measures at this point. With his dependence on BiPAP and poor condition comfort measures at this point may not be a prolonged affair. With the possibility of infection I am going to order cultures and start antibiotics unless of course the CT scan shows widespread metastatic disease. Of paramount importance to the family is that the patient does not suffer. Sonia agrees that his quality of life at this point is extremely poor and there is certainly suffering. I will revisit discussion with the family once the CT scan results are available. Care Planning Goals: Based on CT scan results establish a plan of care Document(s) Completed: None Time Spent: 25 minutes
--- NOTE | 2020-05-28 15:47 | RADIOLOGY REPORT (SQ) ---
EXAM DESCRIPTION: CT CHEST WITH IMAGES COMPLETED DATE/TIME: 05/28/2020 3:27 pm REASON FOR STUDY: Malignant cells pleural effusion COMPARISON: 06/12/2019 TECHNIQUE: CT scan of the chest performed using helical scanning technique with dynamic intravenous contrast injection. Images reviewed with lung, soft tissue and bone windows. Reconstructed coronal and sagittal MPR and MIP images reviewed. All images stored on PACS. All CT scanners at this facility use dose modulation, iterative reconstruction, and/or weight based d osing when appropriate to reduce radiation dose to as low as reasonably achievable (ALARA). [facility]: Dose Right [facility]: CareDose [facility]: Dose Right [facility]: Teradose 4D [facility]: MediaCore RENAL FUNCTION: GFR > 60. RADIATION DOSE: . LIMITATIONS: None. FINDINGS: LUNGS AND PLEURA: Severe emphysema. Previously described left upper lobe nodule is partia lly obscured by moderate left pleural effusion. Moderate right pleural effusion with right lower lob e atelectasis. Patent central airways. HILAR AND MEDIASTINAL STRUCTURES: No identified masses or abnormal nodes. HEART AND VASCULAR STRUCTURES: No aneurysm or dissection. No central pulmonary emboli. No pericardi al effusion. HARDWARE: None in the chest. UPPER ABDOMEN: See separate report of the CT of the abdomen. THYROID AND OTHER SOFT TISSUES: No masses. No adenopathy. BONES: Nothing acute. OTHER: No other significant finding. IMPRESSION: Bilateral pleural effusions without evidence of empyema. Left upper lobe nodule is part ially obscured by the effusion. TECHNICAL DOCUMENTATION: JOB ID: [id number] Quality ID # [id number]: Final reports with documentation of one or more dose reduction techniques (e.g., Au tomated exposure control, adjustment of the mA and/or kV according to patient size, use of iterative reconstruction technique) 2010 [employer]- All Rights Reserved Reading location - IP/workstation name: [email or web address]
--- NOTE | 2020-05-28 15:55 | RADIOLOGY REPORT (SQ) ---
EXAM DESCRIPTION: CT ABD/PELVIS WITH IV ONLY IMAGES COMPLETED DATE/TIME: 05/28/2020 3:27 pm REASON FOR STUDY: Malignant cells pleural effusion COMPARISON: None. TECHNIQUE: CT scan of the abdomen and pelvis performed using helical scanning technique with dynamic intravenous contrast injection. No oral contrast. Images reviewed with lung, soft tissue, and bone windows. Reconstructed coronal and sagittal MPR images reviewed. Delayed images for evaluation of the urinary system also acquired. All images stored on PACS. All CT scanners at this facility use dose modulation, iterative reconstruction, and/or weight based d osing when appropriate to reduce radiation dose to as low as reasonably achievable (ALARA). [facility]: Dose Right [facility]: CareDose [facility]: Dose Right [facility]: Teradose 4D [facility]: OpenBook CONTRAST TYPE AND DOSE: contrast/concentration: Isovue 350.00 mmol/ml; Total Contrast Delivered: 90. 0 ml; Total Saline Delivered: 40.0 ml RENAL FUNCTION: GFR > 60. RADIATION DOSE: CT Rad equipment meets quality standard of care and radiation dose reduction techniq ues were employed. CTDIvol: 5.7 - 6.3 mGy. DLP: 888 mGy-cm.. LIMITATIONS: None. FINDINGS: LOWER CHEST: See separate report of the CT of the chest. LIVER: Normal size. No masses. No dilated ducts. SPLEEN: Normal size. No focal lesions. PANCREAS: No masses. No significant calcifications. No adjacent inflammation or peripancreatic fluid collections. Pancreatic duct not dilated. GALLBLADDER: Gallstones. No inflammatory changes to suggest cholecystitis. ADRENAL GLANDS: No significant masses or asymmetry. RIGHT KIDNEY AND URETER: 2.5 cm lower pole cyst. No solid masses. No significant calcifications. No hydronephrosis or hydroureter. LEFT KIDNEY AND URETER: Atrophic. 1 cm cyst. No solid masses. No significant calcifications. No hydronephrosis or hydroureter. AORTA AND VESSELS: Ectasia. No aneurysm. RETROPERITONEUM: No retroperitoneal adenopathy, hemorrhage or masses. BOWEL AND PERITONEAL CAVITY: Trace ascites. Diverticulosis without evidence of diverticulitis. APPENDIX: Not visualized. PELVIS: 4 mm stone in the urinary bladder. Villa catheter. ABDOMINAL WALL: Clips right lower quadrant abdominal wall. BONES: Nothing acute. OTHER: No other significant finding. IMPRESSION: Trace ascites. No evidence of mass or adenopathy. TECHNICAL DOCUMENTATION: JOB ID: [id number] Quality ID # [id number]: Final reports with documentation of one or more dose reduction techniques (e.g., Au tomated exposure control, adjustment of the mA and/or kV according to patient size, use of iterative reconstruction technique) 2010 [employer]- All Rights Reserved Reading location - IP/workstation name: [email or web address]
[2020-05-28] MEDS: DILTIAZEM HCL 30 MG TABLET PO SCH (18:37)
[2020-05-28] MEDS: MORPHINE SULFATE 10 MG/ML INJ IV PRN (21:13)
[2020-05-28] MEDS: LORAZEPAM INJ 2 MG/1 ML VIAL IV PRN (21:14)
[2020-05-28] MEDS ORDERED: LATANOPROST 0.005% OPH SOLN 2.5 ML OU SCH (22:00)
[2020-05-28] MEDS ORDERED: MELATONIN 3 MG TABLET PO SCH (22:00)
[2020-05-29] MEDS: QUETIAPINE FUMARATE 25 MG TABLET PO SCH ×2 (01:45→09:44)
[2020-05-29] MEDS: DILTIAZEM HCL 30 MG TABLET PO SCH ×3 (01:45→13:58)
[2020-05-29] MEDS: MORPHINE SULFATE 10 MG/ML INJ IV PRN ×2 (06:27→15:16)
[2020-05-29] MEDS: RINGERS SOLUTION,LACTATED 1,000 ML IV PRN (07:09)
--- NOTE | 2020-05-29 08:35 | RADIOLOGY REPORT (SQ) ---
EXAM DESCRIPTION: CHEST SINGLE VIEW IMAGES COMPLETED DATE/TIME: 05/29/2020 8:20 am REASON FOR STUDY: FOLLOW UP PLEURAL EFFUSION COMPARISON: 05/23/2020 EXAM PARAMETERS: NUMBER OF VIEWS: One view. TECHNIQUE: Single frontal radiographic view of the chest acquired. RADIATION DOSE: NA LIMITATIONS: None. FINDINGS: LUNGS AND PLEURA: Mild moderate left and mild right pleural effusion with associated bibas ilar opacities. Chronic interstitial changes with coarse scarring at the bilateral lung apices. No pneumothorax. MEDIASTINUM AND HILAR STRUCTURES: Stable. HEART AND VASCULAR STRUCTURES: Enlarged, stable. BONES: No acute findings. HARDWARE: None in the chest. OTHER: No other significant finding. IMPRESSION: [id number] left and mild right pleural effusion, minimally increased from prior. Associated bibasilar opacities, likely atelectasis. Stable enlarged cardiac silhouette and chronic interstitial changes. TECHNICAL DOCUMENTATION: JOB ID: [id number] 2010 Consulted- All Rights Reserved Reading location - IP/workstation name: [email or web address]
[2020-05-29] MEDS: APIXABAN 5 MG TABLET PO SCH ×2 (09:44→18:18)
[2020-05-29] MEDS: METHYLPREDNISOLONE INJ 40 MG/1 ML SDV IV SCH (09:44)
[2020-05-29] MEDS: FAMOTIDINE 20 MG TABLET PO SCH (09:44)
[2020-05-29] MEDS: TAMSULOSIN HCL 0.4 MG CAP.SR.24H PO SCH (09:44)
[2020-05-29] MEDS: PHENOL/SODIUM PHENOLATE 100 SPRAY/177 ML BOTTLE PO PRN (09:44)
[2020-05-29] MEDS: FLUTICASONE/UMECLIDIN/VILANTER 100-62.5-25 MCG/DOSE IH SCH (09:44)
[2020-05-29 11:57] VITALS: BP 130/80
--- NOTE | 2020-05-29 12:28 | PDOC PROGRESS REPORT ---
Subjective Date:: 05/29/20 Subjective:: The patient is transition to the [employer] so that he can participate in discussion with his family. He is still tachypneic. Towards the end of the discussion he in fact removed his oxygen and became noticeably more dyspneic. Reason For Visit: HYPERCAPNIC RESPIRATORY FAILIURE Physical Exam Vital Signs: Temp Pulse Resp BP Pulse Ox 97.7 F 88 16 130/80 H 93 05/29/20 11:57 05/29/20 11:57 05/29/20 11:57 05/29/20 11:57 05/29/20 11:57 Intake & Output 05/28/20 05/29/20 05/30/20 06:59 06:59 06:59 Intake Total 1172 2790 1228 Output Total 1000 1200 Balance 172 1590 1228 Weight 79.5 kg 80.8 kg General appearance: PRESENT: cooperative, mild distress, thin - Thin and frail 84-year-old patient resting in bed Head exam: PRESENT: atraumatic, normocephalic Ear exam: PRESENT: normal external ear exam. ABSENT: bleeding, drainage Mouth exam: PRESENT: dry mucosa, tongue midline Respiratory exam: PRESENT: decreased breath sounds - Bilateral bases, tachypnea. ABSENT: wheezes Cardiovascular exam: PRESENT: RRR, +S1, +S2 GI/Abdominal exam: PRESENT: normal bowel sounds, soft. ABSENT: tenderness Rectal exam: PRESENT: deferred Neurological exam: PRESENT: alert, awake, oriented to person, oriented to place, oriented to situation Results Laboratory Results: 05/28/20 11:04 05/28/20 11:04 05/14/20 14:47 Troponin I < 0.012 Impressions: Head CT 05/15/20 00:00 IMPRESSION: 1. No acute intracranial findings. 2. Mild atrophy as on prior exam Thoracentesis Ultrasound 05/23/20 09:19 IMPRESSION: SUCCESSFUL LEFT THORACENTESIS USING ULTRASOUND GUIDANCE. Abdomen/Pelvis CT 05/28/20 00:00 IMPRESSION: Trace ascites. No evidence of mass or adenopathy. Chest CT 05/28/20 00:00 IMPRESSION: Bilateral pleural effusions without evidence of empyema. Left upper lobe nodule is partially obscured by the effusion. Assessment and Plan - Diagnosis (1) Acute respiratory failure with hypercapnia Is this a current diagnosis for this admission?: Yes (2) COPD (chronic obstructive pulmonary disease) Qualifiers: COPD type: COPD with acute exacerbation Qualified Code(s): J44.1 - Chronic obstructive pulmonary disease with (acute) exacerbation Is this a current diagnosis for this admission?: Yes (3) Dementia Qualifiers: Alzheimer's disease onset: unspecified onset Is this a current diagnosis for this admission?: Yes (4) Hematuria Qualifiers: Hematuria type: unspecified type Qualified Code(s): R31.9 - Hematuria, unspecified Is this a current diagnosis for this admission?: Yes (5) Pneumonia Qualifiers: Pneumonia type: aspiration pneumonia Laterality: bilateral Lung location: lower lobe of lung Is this a current diagnosis for this admission?: Yes (6) Atrial flutter Qualifiers: Atrial flutter type: typical Qualified Code(s): I48.3 - Typical atrial flutter Is this a current diagnosis for this admission?: Yes (7) Leukocytosis Qualifiers: Leukocytosis type: unspecified Qualified Code(s): D72.829 - Elevated white blood cell count, unspecified Is this a current diagnosis for this admission?: Yes (8) Lung nodule Is this a current diagnosis for this admission?: Yes - Plan Summary Summary: The patient had a more elevated WBC yesterday. he has been afebbbrile. Steroids were started 05/18 and I was attributing the rise to that. No new or worsening cough. 05/25 will obtain labs for a.m. 05/26Patient condition remains the same. He remains on Cardizem drip with fairly controlled heart rate. His oral intake is still poor and so we are unable to give him a much orally either food or medications. He has being on Solu-Medrol which is currently being tapered ~20mg for now. He also remains on IV fluid although have decreased the amount due to his poor intake. He received a dose of Lasix yesterday which I think helped much with his breathing but will hold off on further doses and this should be reevaluated as needed. 05/27/2020 Back on diltiazem infusion. Will increase the rate. Once patient's rate is around 100 I will restart oral diltiazem Called by pathology. Malignant cells seen in the thoracentesis pleural fluid. I reviewed old imaging studies and in 2018 there was a small nodule in the left lung. We will need to repeat a CT scan of the chest. We will have to do this while the patient is somewhat sedate. White blood cell count is still 20,000. Unsure of the exact etiology. Currently off of antibiotic therapy. Will likely need repeat cultures. Patient is rambling. Difficult to know the exact etiology. We will continue to decipher studies performed during this admission. 05/28/2020 Atrial fibrillation-we will change the IV diltiazem to oral dosing. Will use short acting every 6 hours to establish an effective dose and then change to long-acting. Respiratory failure-still requiring BiPAP. We will continue to try to wean back to nasal cannula as tolerated. Lung nodule-with malignant cells in the pleural fluid and a CT scan with a 7 mm spiculated lesion in 2018 there is a high probability of lung malignancy. Await CT scan results from today. Leukocytosis-White blood cell count is still 20,000. The CT scan will show if there is a focus of infection in the lungs. I will also ask for urine and blood cultures. We will start antibiotic therapy after the cultures are obtained. The infection clearly would be treatable however the malignancy would be a very different story. At his age and in his current state he would not be a candidate for any active treatment at all. I had a long discussion with the patient's daughter about possible hospice options as well. 05/29/2020 Had a long discussion with the patient's family. Please see separate ACP note. The patient is now comfort measures only. I have made the significant changes in his orders to focus on pain management, anxiety control and to manage air hunger with his respiratory failure. It is difficult to predict but I did tell the family that life expectancy would be likely 24 to 48 hours. They were understandably upset but all agreed that the quality of life that Mr. Kidd has is absolutely not what he would have wanted. - Time Time Spent with patient: 15-24 minutes Medications reviewed and adjusted accordingly: Yes Anticipated Discharge Disposition: [facility] Anticipated Discharge Timeframe: within 72 hours
[2020-05-29] MEDS: LORAZEPAM INJ 2 MG/1 ML VIAL IV PRN (15:58)
[2020-05-29] MEDS ORDERED: MORPHINE SULFATE 10 MG/ML INJ IV PRN ×2 (17:38→17:43)
[2020-05-29] MEDS ORDERED: ACETAMINOPHEN 650 MG SUPP.RECT PR PRN (17:41)
[2020-05-29] MEDS ORDERED: LORAZEPAM INJ 2 MG/1 ML VIAL IV PRN (17:43)
--- NOTE | 2020-05-29 17:49 | ADVANCED CARE ---
- Diagnosis (1) Acute respiratory failure with hypercapnia Diagnosis Current: Yes (2) COPD (chronic obstructive pulmonary disease) Diagnosis Current: Yes (3) Dementia Diagnosis Current: Yes (4) Hematuria Diagnosis Current: Yes (5) Pneumonia Diagnosis Current: Yes (6) Atrial flutter Diagnosis Current: Yes (7) Leukocytosis Diagnosis Current: Yes (8) Lung nodule Diagnosis Current: Yes Attendance: The patient's and 2 daughters participated in this discussion. We had the meeting in the endoscopy waiting room and utilized one of the computer on wheels to actually show them imaging studies. Resuscitation Status: Comfort Measures Only Discussion: I talked extensively with the patient's daughter Sonia yesterday. We had a prearranged meeting today at 11:30 AM. At that time I reviewed the patient's current condition which is extremely poor. I reviewed the imaging studies obtained yesterday and today. I showed them on the CAT scan how much fluid had reaccumulated and this was confirmed by CT scan. Several days ago he had 1.2 L of pleural fluid removed from the left side. Most fluid is back and now there is a sizable right pleural effusion. The patient clearly is struggling to breathe then we discussed treatment options. The family was emphatic and the patient in fact confirmed this that he did not want to be in any discomfort. The family stated that the patient had told him in the past that he would not want to live in a [facility] and he would not want the quality of life that he currently has. He is in constant discomfort. The family did appreciate the gravity especially considering the amount of malignant effusion that had developed/reoccurred since the thoracentesis. I again reported the pathology findings of malignant cells in the pleural fluid. I showed them why the nodule/mass that was seen on previous CAT scan cannot be visualized due to all of the fluid. They were understanding of Mr. Babcock current condition. It was unanimously decided that comfort care would be the plan that they wanted to pursue. We did in fact move into the patient's room. I did explain that there is malignancy and were not sure where the primary is but we reviewed the prognosis and findings. The family will let me know when in fact they wish to make the changes to the specific comfort measure orders. Care Planning Goals: Final decision was made to transition the patient to comfort measures only. Time Spent: 30 min
[2020-05-29] MEDS ORDERED: HYOSCYAMINE SULFATE 0.125 MG TABLET SL PRN (20:32)
--- NOTE | 2020-05-30 00:14 | Progress Note ---
Provider Note Provider Note: Informed by primary nurse that patient at 23:20 on 05/29/2020. Went to evaluate patient at bedside. I examined patient and pronounced patient has . Offered my condolences to patient's daughter Jessica who is at bedside. No autopsy requested. I filled the certificate. Time of as noted 23:20 on 05/29/2020.
--- NOTE | 2020-05-30 06:40 | Death Summary ---
Summary Date : 05/30/20 Time of :: 23:20 Autopsy: No Resuscitation Status: Comfort Measures Only - Final Diagnosis (1) Acute respiratory failure with hypercapnia Is this a current diagnosis for this admission?: Yes (2) COPD (chronic obstructive pulmonary disease) Is this a current diagnosis for this admission?: Yes (3) Dementia Is this a current diagnosis for this admission?: Yes (4) Hematuria Is this a current diagnosis for this admission?: Yes (5) Pneumonia Is this a current diagnosis for this admission?: Yes (6) Atrial flutter Is this a current diagnosis for this admission?: Yes (7) Leukocytosis Is this a current diagnosis for this admission?: Yes (8) Lung nodule Is this a current diagnosis for this admission?: Yes Hospital Course:: Patient was initially admitted for sepsis. He had acute on chronic respiratory failure with hypoxia and hypercapnia. This was likely from pneumonia. He had a sizable left pleural effusion that was tapped. As he stabilized he was transferred to the floor. 0.2 L of pleural fluid was removed from the left lung. Malignant cells were found. He does have a history of a nodule in the left lung that was noted last year. We did not see reasonable improvement. Repeat imaging studies showed that not only had the left malignant effusion recurred but there is now a sizable right pleural effusion. With the severity of scarring from COPD combined with underlying malignancy the family appreciated that the patient was not getting better. After several extensive discussions it was felt that the patient's wishes would be best served with comfort measures. All of the family were in agreement. The patient in fact agreed. The patient was made comfort measures and at 11:30 PM on May 29, 2020.
== END 2020-05-30 02:20 | DRG 189 ==
LOC: ER 14:26 → EH 19:10 → ICU 21:15 → 5 05-25 07:57
PROVIDERS: ADMIT Anesthesiology; ATTEND Hospitalist
PROC: 5A09557 Assistance with Respiratory Ventilation, Greater than 96 Consecutive Hours, Continuous Positive Airway Pressure (ICD-10-PCS; principal; 2020-05-14)
PROC: 30233N1 Transfusion of Nonautologous Red Blood Cells into Peripheral Vein, Percutaneous Approach (ICD-10-PCS; 2020-05-16)
PROC: 0W9B3ZX Drainage of Left Pleural Cavity, Percutaneous Approach, Diagnostic (ICD-10-PCS; 2020-05-23)
DX: J96.01 Acute respiratory failure with hypoxia (principal); J18.9 Pneumonia, unspecified organism; J69.0 Pneumonitis due to inhalation of food and vomit; J44.0 Chronic obstructive pulmonary disease with (acute) lower respiratory infection; C34.92 Malignant neoplasm of unspecified part of left bronchus or lung; C78.2 Secondary malignant neoplasm of pleura; N17.9 Acute kidney failure, unspecified; I48.3 Typical atrial flutter; T83.83XA Hemorrhage due to genitourinary prosthetic devices, implants and grafts, initial encounter; R91.1 Solitary pulmonary nodule; I10 Essential (primary) hypertension; J43.9 Emphysema, unspecified; D72.829 Elevated white blood cell count, unspecified; T38.0X5A Adverse effect of glucocorticoids and synthetic analogues, initial encounter; Y84.6 Urinary catheterization as the cause of abnormal reaction of the patient, or of later complication, without mention of misadventure at the time of the procedure; G30.9 Alzheimer's disease, unspecified; F02.80 Dementia in other diseases classified elsewhere, unspecified severity, without behavioral disturbance, psychotic disturbance, mood disturbance, and anxiety; R31.0 Gross hematuria; J96.02 Acute respiratory failure with hypercapnia; Z78.1 Physical restraint status; Z20.828 Contact with and (suspected) exposure to other viral communicable diseases; Z87.891 Personal history of nicotine dependence; Z79.899 Other long term (current) drug therapy; Z79.01 Long term (current) use of anticoagulants
CPT/HCPCS: 32555; 36415; 36430; 36600; 70450; 71045; 71260; 74177; 80048; 80053; 81001; 82040; 82803; 82945; 82962; 83605; 83615; 83735; 84145; 84157; 84484; 85025; 85027; 85610; 86850; 86900; 86901; 86920; 87040; 87070; 87075; 87086; 87205; 87635; 88305; 88341; 88342; 93005; 93010; 94640; 94660; 96361; 96365; 96368; 99285; 99291; C9803; J0456; J0696; J1630; J1650; J1940; J1956; J2060; J2270; J2920; J3490; J7030; J7040; J7120; P9016; S0028